=== PATIENT | male | born 1960 | race Caucasian/White ===

== ENCOUNTER 2025-09-13 07:59 | Inpatient (IN) | payer OTHER, SELFPAY ==
[2025-09-13] VITALS (22 sets, daily range): BP systolic 149–180; BP diastolic 48–80; PULSE 34–47; RESP 9–18; TEMP 36.4–36.5; O2SAT 92–100; BMI 28.7
--- NOTE | ~2025-09-13 | US_ITS ---
EXAMINATION: US renal BI DATE: 09/14/2025 08:27 INDICATION: Acute on chronic renal failure TECHNIQUE: Multiple ultrasound grayscale images of the kidneys were obtained. COMPARISON: None. FINDINGS: The right kidney measures 8.2 x 4.2 x 3.7 cm. The left kidney measures 8.6 x 4.9 x 4.6 cm. There is bilateral increased renal cortical echogenicity consistent with medical renal disease. There is no hydronephrosis in either kidney. No stones identified. Diffuse mild bladder wall thickening which chronic outlet obstruction from the enlarged prostate which measures at least 5.4 x 3.9 cm and which impresses upon the base of the bladder. Small amount of ascites in the left and right upper quadrants. IMPRESSION: 1. Bilateral diffuse increased renal cortical echogenicity consistent with medical renal disease. No hydronephrosis. 2. Small amount of ascites in the left and right upper quadrant. 3. Mild diffuse bladder wall thickening, likely related to chronic outlet obstruction from the enlarged prostate. Reviewed, dictated and finalized at location A. D CERTIFIED BEHAVIORAL ANALYST IMPRESSION: 1. Bilateral diffuse increased renal cortical echogenicity consistent with med ical renal disease. No hydronephrosis. 2. Small amount of ascites in the left and right upper quadrant. 3. Mild diffuse bladder wall thickening, likely related to chronic outlet obstr uction from the enlarged prostate.
--- NOTE | ~2025-09-13 | XR_ITS ---
EXAMINATION: XR chest 2V DATE: 09/13/2025 09:01 INDICATION: Bilateral extremity swelling TECHNIQUE: frontal and lateral views of the chest were obtained. COMPARISON: None FINDINGS: Small posterior left pleural effusion. Lungs are otherwise clear with no pulmonary edema, pneumothorax or right-sided pleural effusion. Borderline heart size, for AP technique. Moderate thoracic spondylosis with bridging osteophytes at multiple levels consistent with diffuse idiopathic skeletal hyperostosis (DISH). IMPRESSION: 1. Small left pleural effusion. 2. Borderline heart size. Reviewed, dictated and finalized at location A. CONTROL CONSULTANT
--- NOTE | 2025-09-13 08:09 | ECG_ITS ---
Test Date: 2025-09-13 08:17:15 Measurements Intervals [place] Rate: 41 P: 0 IN: 0 QRS: -8 QRSD: 96 T: 79 QT: 514 QTc: 427 Interpretive Statements ATRIAL FIBRILLATION WITH SLOW VENTRICULAR RESPONSE SEPTAL MYOCARDIAL INFARCTION [40+ ms Q WAVE IN V1/V2], PROBABLY OLD INTERPRETATION BASED ON A DEFAULT AGE OF 40 YEARS No previous ECG available for comparison Electronically Signed On 09-13-2025 08:38:34 [employer] by Darwin Villafana M.D.
--- NOTE | 2025-09-13 08:15 | ED_ITS ---
HPI - General Adult General Chief complaint: Extremity Problem,Nontraumatic Stated complaint: bilateral leg swelling Time Seen by Provider: 09/13/25 08:10 Source: patient Mode of arrival: ambulatory Limitations: no limitations History of Present Illness HPI narrative: 65 YEARS OLD WHITE MALE DROVE HIMSELF TO THE EMERGENCY ROOM BECAUSE OF SWELLING OF THE LOWER EXTREMITIES OVER THE LAST 48 HOURS. HE DENIES ANY FEVER, CHILLS, NAUSEA, VOMITING, HEADACHE, CHEST PAIN, SHORTNESS OF BREATH OR BACK PAIN. HISTORY OF DIABETES HYPERTENSION HYPERLIPIDEMIA ON BABY ASPIRIN ONCE A DAY. PATIENT REPORT HAVING SIMILAR SYMPTOMS OF SWELLING OF THE LOWER EXTREMITY 1 YEAR AGO AND WAS HOSPITALIZED AT [facility]. HIS TELLING ME THAT HE HAVE A KIDNEY DOCTOR OVER THERE. Related Data Home Medications ?Medication ?Instructions ?Recorded ?Confirmed ?Last Taken ?Type amlodipine 5 mg tablet 5 mg PO DAILY 09/13/2509/1309/12/25 History calcitriol 0.25 mcg capsule 0.25 mcg PO DAILY 09/13/25 09/13/25 09/12/25 History carvedilol 3.125 mg tablet 3.125 mg PO Q12H 09/13/25 1 11/13/24 09/12/25 History finasteride 5 mg tablet 5 mg PO DAILY 09/13/2509/13 Unknown History insulin degludec 100 unit/mL (3 10 unit subcut HS 08/2609/13/25 09/12/25 History mL) subcutaneous pen (Tresiba FlexTouch U-100 insulin) insulin lispro 100 unit/mL 1 sliding scale dose subcut 09/13/25 09/13/25 09/12/25 History subcutaneous pen (Admelog SoloStar USEASDIRECTD U-100 Insulin lispro) sevelamer carbonate 800 mg tablet mg 09/13/25 Unknown History sodium bicarbonate 650 mg tablet 1,300 mg PO BID 09/1309/13/25 09/12/25 History Held on 09/13/25. Instructions: Patient no longer taking tamsulosin 0.4 mg capsule 0.4 mg PO Q24H 09/13/2508/26 Unknown History tirzepatide 5 mg/0.5 mL 5 mg subcut .BI WEEKLY 09/1309/13/25 08/30/25 History subcutaneous pen injector (Bernardo) torsemide 20 mg tablet 100 mg PO DAILY 09/13/2509/12/25 History Allergies Allergy/AdvReac Type Severity Reaction Status Date / Time Penicillins Allergy Intermediate Unknown Verified 09/13/25 11:43 Review of Systems 2 Review of Systems: All systems reviewed & are unremarkable except as noted in HPI and below PMFSH Social History Social History Smoking status: Never smoker Alcohol intake: never Substance use: never Lack of Transportation: No Lack of Food: Never True Current Housing: I Have Housing Concerned About Future Housing: No Difficulty Paying Gas/Electric Bills: No Difficulty Paying for Meds: No Currently Unemployed: No Education: Master's Degree or Higher Difficulty w/ Childcare or Family Care: No Spiritual care concerns: No Exam 2 Narrative: GENERAL APPEARANCE: WELL-DEVELOPED, WELL-NOURISHED SKIN: NORMAL COLOR, 3 +EDEMA LOWER EXTREMITY BILATERALLY UP TO THE GROIN AND GENITAL AREA. HEAD: NORMOCEPHALIC, NONTRAUMATIC EYES: CLEAR CONJUNCTIVA ENT: OROPHARYNX NORMAL, EARS NORMAL, NOSE NORMAL NECK: SUPPLE, NONTENDER CHEST AND RESPIRATORY: AIRWAY PATENT, NO RESPIRATORY DISTRESS, NO ACCESSORY MUSCLE USE HEART: BRADYCARDIA ABDOMEN: SOFT, NONTENDER, NO ORGANOMEGALY, QUIET BOWEL SOUNDS VASCULAR: NORMAL PERIPHERAL PULSES, NORMAL CAPILLARY REFILL. MUSCULOSKELETAL: NORMAL RANGE OF MOTION, NONTENDER BACK NEUROLOGIC: ALERT AND ORIENTED ?3, MOLASSES FEED MIXER IS NORMAL TESTED, NO GROSS MOTOR DEFICIT Course Consultations Consultation #1: DR BAUTISTA ADMIT TO HOSPITALIST Date: 09/13/25 Consultation #2: WILLY, CARDIOLOGY, ADMIT TO HOSPITALIST Date: 09/13/25 Vital Signs Vital signs: Vital Signs Pulse Rate 46 L 09/13/25 08:03 Respiratory Rate 14 09/13/25 08:03 Blood Pressure 149/66 H 09/13/25 08:03 Pulse Oximetry 100 09/13/25 08:03 Oxygen Delivery Room Air 09/13/25 08:03 Temperature 36.5 C 09/13/25 16:00 Pulse Rate 36 L 09/13/25 18:00 Respiratory Rate 18 09/13/25 16:00 Blood Pressure 179/57 H 09/13/25 16:00 Pulse Oximetry 96 09/13/25 16:00 Oxygen Delivery Room Air 09/13/25 08:03 Medical Decision Making [facility] Narrative Medical decision making narrative: PATIENT CAME WITH LEG EDEMA FOR THE LAST FEW DAYS VITAL SIGN SHOWING HEART RATE OF 46 IRREGULAR OTHERWISE WITHIN NORMAL LIMIT PHYSICAL EXAMINATION SHOWING 3+ EDEMA LOWER EXTREMITY BILATERALLY, SLOW HEART RATE WITH IRREGULARITY DIFFERENTIAL DIAGNOSIS INCLUDE CONGESTIVE HEART FAILURE, LIVER FAILURE, KIDNEY FAILURE, DEPENDENT EDEMA, HYPOPROTEINEMIA, BLOOD WORKUP TODAY INCLUDES CBC, CMP, TROPONIN, PRO BMP SHOWED HEMOGLOBIN 7.7, TROPONIN 0.085, PROBNP MORE THAN 30,000, CREATININE 10.2 BUN 177, OTHERWISE WITHIN NORMAL LIMIT URINALYSIS SHOWED NO ACUTE ABNORMALITY CHEST X-RAY SHOWED SMALL LEFT PLEURAL EFFUSION EKG SHOWED AFIB WITH SLOW VENTRICULAR RESPONSE ADMIT TO HOSPITALIST CONSULT NEPHROLOGY AND CARDIOLOGY. Differential Diagnosis Differential Diagnosis: ABOVE Vital Signs Vital Signs: Vital Signs Pulse Rate 46 L 09/13/25 08:03 Respiratory Rate 14 09/13/25 08:03 Blood Pressure 149/66 H 09/13/25 08:03 Pulse Oximetry 100 09/13/25 08:03 Oxygen Delivery Room Air 09/13/25 08:03 Temperature 36.5 C 09/13/25 16:00 Pulse Rate 36 L 09/13/25 18:00 Respiratory Rate 18 09/13/25 16:00 Blood Pressure 179/57 H 09/13/25 16:00 Pulse Oximetry 96 09/13/25 16:00 Oxygen Delivery Room Air 09/13/25 08:03 Lab Data 09/13/25 08:13 09/13/25 08:13 Labs: Lab Results 09/13/25 Range/Units 08:13 WBC 5.8 (4.5-10.0) K/mm3 RBC 2.65 L (4.6-6.20) M/mm3 Hgb 7.7 L (14.0-18.0) g/dL Hct 25.6 L (42.0-52.0) % MCV 96.6 (80-100) fl MCH 29.1 (26-34) pg MCHC 30.1 L (32-36) g/dl RDW 14.6 H (11.5-14.5) % Plt Count 212 (150-375) k/mm3 MPV 11.6 H (7.4-10.4) fl Immature Gran % (Auto) 0.3 (0-0.5) % Neut % (Auto) 65.1 (45.5-73.1) % Lymph % (Auto) 19.7 (18.3-44.2) % [place] % (Auto) 9.7 H (2.6-8.5) % Eos % (Auto) 4.7 H (0-4.4) % Baso % (Auto) 0.5 (0.2-1.2) % Lymph # (Auto) 1.14 (0.9-3.2) K/mm3 [place] # (Auto) 0.6 (0.1-0.6) K/mm3 Eos # (Auto) 0.3 (0-0.3) K/mm3 Baso # (Auto) 0.0 (0.0-0.1) K/mm3 Abs Immat Gran (auto) 0.02 (0.00-0.031) K/mm3 Absolute Neuts (auto) 3.8 (1.3-6.7) K/mm3 Absolute Nucleated RBC 0.000 (0.0-0.012) K/mm3 Nucleated RBC % 0.0 (0.0-0.2) % PT 16.7 H (11.1-14.7) Seconds INR 1.3 APTT 29.5 (22.3-36.8) Seconds Sodium 143 (137-145) mmol/L Potassium 5.0 (3.4-5.0) mmol/L Chloride 108 H (98-107) mmol/L Carbon Dioxide 20 L (22-30) mmol/L Anion Gap 15 H (4-12) mmol/L BUN 117 H* (9-20) mg/dL Creatinine 10.25 H (0.7-1.3) mg/dL Estim Creat Clear Calc 7 ml/min Estimated GFR 5 L (59 - ) Glucose 187 H (65-110) mg/dL Calcium 8.7 (8.4-10.2) mg/dL Total Bilirubin 0.5 (0.2-1.3) mg/dL AST 31 (17-59) U/L ALT 54 H (6-50) U/L Alkaline Phosphatase 162 H (38-126) U/L Troponin I 0.093 H* (0.000-0.034) ng/mL NT-Pro-B Natriuret Pep > 68226 H (19.9-100) pg/mL Total Protein 6.2 L (6.3-8.2) g/dL Albumin 3.6 (3.5-5.1) g/dL Imaging Data Radiologist's impression: Impressions Chest X-Ray 09/13/25 09:02 IMPRESSION: 1. Small left pleural effusion. 2. Borderline heart size. Critical Care Time Critical Care Time Critical Care Time: Yes Total Critical Care Time: 30 Discharge Plan Discharge Clinical Impression: Elevated troponin, Atrial fibrillation with slow ventricular response, CHF (congestive heart failure), Anemia Kidney failure Qualifiers: Renal failure chronicity: acute on chronic Acute renal failure type: u nspecified Chronic kidney disease stage: stage 5 (GFR < 15), not on chronic dialysis Qualified Code(s): N17.9 - Acute kidney failure, unspecified Patient Disposition: Still a Patient Condition: Guarded Prognosis
[2025-09-13 08:20] LABS: Hematocrit 25.6 % (42.0-52.0); Hemoglobin 7.7 g/dL (14.0-18.0); Immature Granulocyte Percent A 0.3 % (0-0.5); Lymphocytes Absolute Auto 1.14 K/mm3 (0.9-3.2); Mean Corpuscular HGB Conc 30.1 g/dl (32-36); Mean Corpuscular Hemoglobin 29.1 pg (26-34); Mean Corpuscular Volume 96.6 fl (80-100); Nucleated Red Blood Cells Absolute Auto 0.000 K/mm3 (0.0-0.012); Nucleated Red Blood Cells Perc 0.0 % (0.0-0.2); Platelet Count Result 212 k/mm3 (150-375); Red Blood Count 2.65 M/mm3 (4.6-6.20); White Blood Count 5.8 K/mm3 (4.5-10.0)
[2025-09-13 08:32] LABS: Alanine Aminotransferase 54 U/L (6-50); Albumin Level 3.6 g/dL (3.5-5.1); Alkaline Phosphatase 162 U/L (38-126); Anion Gap 15 mmol/L (4-12); Aspartate Amino Transferase 31 U/L (17-59); Bilirubin,Total 0.5 mg/dL (0.2-1.3); Calcium 8.7 mg/dL (8.4-10.2); Carbon Dioxide 20 mmol/L (22-30); Chloride 108 mmol/L (98-107); Estimated CRCL calculation 7 ml/min; Estimated Glomerular Filt Rate 5; Glucose 187 mg/dL (65-110); Potassium 5.0 mmol/L (3.4-5.0); Sodium 143 mmol/L (137-145); Total Protein 6.2 g/dL (6.3-8.2)
[2025-09-13 08:33] LABS: INR 1.3; Prothrombin Time 16.7 Seconds (11.1-14.7)
[2025-09-13 08:34] LABS: Partial Thromboplastin Time 29.5 Seconds (22.3-36.8)
[2025-09-13 08:39] LABS: Blood Urea Nitrogen 117 mg/dL (9-20)
[2025-09-13 08:43] LABS: NT Pro B Type Natriuretic Pept > 30000 pg/mL (19.9-100); Troponin I 0.093 ng/mL (0.000-0.034)
--- NOTE | 2025-09-13 09:42 | PC.NURSE ---
Unable to cath patient for urine d/t swelling of genitalia. Dr. Conte made aware.
[2025-09-13] MEDS: FUROSEMIDE INJ 40 MG/4 ML VIAL 60 MG IV PUSH (09:51)
--- NOTE | 2025-09-13 10:51 | WPCEDHO ---
ED Hand Off Checklist All vitals saved: yes IV Site documented: yes All med administrations documented: yes Triage Note Triage Note Pt ambulates to the ED for 09/13/25 08:03 evaluation of bilateral leg swelling for a few days. Pt denies CHF history, states he has hx of kidney problems but is unsure what. Pt states he had a similar episode 1 year ago. After being weighed today, pt states he has gained 20lbs in a few days. Allergies Penicillins Allergy (Intermediate, Verified 09/13/25 08:00) Unknown Administered/Completed Medications Discontinued Medications Furosemide (Furosemide Inj 40 Mg/4 Ml Vial) 60 mg IV PUSH ONCE STA Stop: 09/13/25 09:44 Last Admin: 09/13/25 09:51 Dose: 60 mg Documented By: ROMY Notes 09/13/25 10:50 Nurse Note by Estrellita De Los Santos multiple staff members attempted to place catheter in pt without success Initialized on 09/13/25 10:50 - END OF NOTE 09/13/25 09:42 Nurse Note by Radha Kasper Unable to cath patient for urine d/t swelling of genitalia. Dr. Conte made aware. Initialized on 09/13/25 09:42 - END OF NOTE Interventions/Assessments Cardiac Monitoring Start: 09/13/25 09:10 Freq: Status: Active Protocol: Document 09/13/25 08:03 VENICE (Rec: 09/13/25 09:11 KNW [id number]) Swimming Pool Cleaner Assessment Swimming Pool Cleaner Yes Applied Pulse Rate (60-100) 47 L EKG Rythm Sinus Bradycardia IV / Saline Lock, Insert Start: 09/13/25 08:09 Freq: STAT Status: Active Protocol: Document 09/13/25 08:10 ROMY (Rec: 09/13/25 08:11 [id number]) IV Assessment Peripheral Access Left Forearm IV Catheter Access Initiated IV Insertion Date 09/13/25 IV Insertion Time 08:11 Catheter Gauge 18 IV Insertion 1 Attempts Ultrasound Used for No Placement IV Site Assessment WNL IV Care and WNL Maintenance Last Vital Signs Pulse Rate 34 L 09/13/25 10:47 Respiratory Rate 14 09/13/25 10:47 Pulse Oximetry 98 09/13/25 10:47 Blood Pressure 153/76 H 09/13/25 10:47 Blood Pressure Mean 98 09/13/25 10:47 Blood Pressure Position Sitting 09/13/25 08:03 Oxygen Delivery Room Air 09/13/25 08:03 Weight 88.6 kg 09/13/25 08:03 Last Result - Abnormals Only RBC 2.65 M/mm3 (4.6-6.20) L 09/13/25 08:13 Hgb 7.7 g/dL (14.0-18.0) L 09/13/25 08:13 Hct 25.6 % (42.0-52.0) L 09/13/25 08:13 MCHC 30.1 g/dl (32-36) L 09/13/25 08:13 RDW 14.6 % (11.5-14.5) H 09/13/25 08:13 MPV 11.6 fl (7.4-10.4) H 09/13/25 08:13 [place] % (Auto) 9.7 % (2.6-8.5) H 09/13/25 08:13 Eos % (Auto) 4.7 % (0-4.4) H 09/13/25 08:13 PT 16.7 Seconds (11.1-14.7) H 09/13/25 08:13 Chloride 108 mmol/L (98-107) H 09/13/25 08:13 Carbon Dioxide 20 mmol/L (22-30) L 09/13/25 08:13 Anion Gap 15 mmol/L (4-12) H 09/13/25 08:13 BUN 117 mg/dL (9-20) H* 09/13/25 08:13 Creatinine 10.25 mg/dL (0.7-1.3) H 09/13/25 08:13 Estimated GFR 5 (59-) L 09/13/25 08:13 Glucose 187 mg/dL (65-110) H 09/13/25 08:13 ALT 54 U/L (6-50) H 09/13/25 08:13 Alkaline Phosphatase 162 U/L (38-126) H 09/13/25 08:13 Troponin I 0.093 ng/mL (0.000-0.034) H* 09/13/25 08:13 NT-Pro-B Natriuret Pep > 76003 pg/mL (19.9-100) H 09/13/25 08:13 Total Protein 6.2 g/dL (6.3-8.2) L 09/13/25 08:13 Most Recent Suicide Severity Rating Suicide Severity Rating NO RISK INDICATED 09/13/25 08:03
--- NOTE | 2025-09-13 10:54 | PC.NURSE ---
EDP is aware the catheter was not placed due to difficulty, EDP says the pt urinated 2 hours prior and is not concerned with a catheter placement at this time
[2025-09-13 11:19] LABS: Add Urine Microscopic? YES; Appearance Urine Clear (Clear); Glucose Urine UA 1+ mg/dL (Negative); Leukocyte Esterase Ur Negative LEU/UL (Negative); Nitrate Urine Negative (Negative); Non Pathogenic Casts 0-2; Specific Grav Ur 1.012 (1.001-1.035)
--- NOTE | 2025-09-13 11:29 | ADMGEN ---
This patient, Colt Islas, was admitted to IMU Room 210-01. Patient/family oriented to hospital policies and general routines including ID bracelet, bed and alarms, visiting hours, pain management, procedures, bathroom and other care routines, personal items, smoking policy, room service/diet, and visiting hours. Information on how to activate the Rapid Response Team has been discussed. Patient/Family are encouraged to report perceived risks to care and to ask questions if they do not understand what they are told or what they should do.
[2025-09-13 12:03] LABS: Troponin I 0.087 ng/mL (0.000-0.034)
--- NOTE | 2025-09-13 13:50 | PM.IMHP ---
H&P: HPI History of Present Illness Date/Time: 09/13/25 13:50 Chief Complaint: Lower extremity edema Narrative: 65-year-old male with past medical history of DM 2, HTN, CKD, hyperlipidemia presents to the ED on 09/13/2025 with complaints of bilateral lower extremity edema onset 2 days ago. Patient denies shortness of breath, chest pain, fevers, chills but endorses a cough that started yesterday with clear sputum. He further endorses decreased urinary output over the past couple of days. Patient states he had an episode similar to this last year and was hospitalized at [facility]. He follows nephrology and Internal Medicine at [facility]. Patient denies any history of CHF. Noted to be bradycardic in the 30s with AFib but asymptomatic. Patient states he usually runs 5 miles a day but has had difficulty over the past couple days due to the edema. After being weighed in the ED, patient stated he gained 20 lb in ?a few days.? Initial vital signs 149/66, HR 46, respirations 14, afebrile and 100% on room air EKG shows atrial fibrillation with slow ventricular response with rate of 41, old septal myocardial infarction Chemistry significant for anion gap 15, BUN 117, creatinine 10.25, glucose elevated at 187 ALT 54, alk-phos 162, BNP >30,000. Initial troponin 0.087. UA negative for infection Chest x-ray reads small left pleural effusion, borderline cardiac size Review of Systems Review of Systems: All systems reviewed & are unremarkable except as noted in HPI and below [facility] Social History Social History Smoking status: Never smoker Alcohol intake: never Substance use: never Lack of Transportation: No Lack of Food: Never True Current Housing: I Have Housing Concerned About Future Housing: No Difficulty Paying Gas/Electric Bills: No Difficulty Paying for Meds: No Currently Unemployed: No Education: Master's Degree or Higher Difficulty w/ Childcare or Family Care: No Spiritual care concerns: No Meds Home Medications and Allergies Home Medications ?Medication ?Instructions ?Recorded ?Confirmed ?Type amlodipine 5 mg tablet 5 mg PO DAILY 09/13/25 09/13/25 History calcitriol 0.25 mcg capsule 0.25 mcg PO DAILY 09/13/25 09/13/25 History carvedilol 3.125 mg tablet 3.125 mg PO Q12H 09/13/25 09/13/25 History finasteride 5 mg tablet 5 mg PO DAILY 09/13/25 09/13/25 History insulin degludec 100 unit/mL (3 10 unit subcut HS 09/13/25 09/13/25 History mL) subcutaneous pen (Tresiba FlexTouch U-100 insulin) insulin lispro 100 unit/mL 1 sliding scale dose subcut 09/13/25 09/13/25 History subcutaneous pen (Admelog SoloStar USEASDIRECTD U-100 Insulin lispro) sevelamer carbonate 800 mg tablet mg 09/13/25 History sodium bicarbonate 650 mg tablet 1,300 mg PO BID 09/13/25 09/13/25 History Held on 09/13/25. Instructions: Patient no longer taking tamsulosin 0.4 mg capsule 0.4 mg PO Q24H 09/13/25 09/13/25 History tirzepatide 5 mg/0.5 mL 5 mg subcut .BI WEEKLY 09/13/25 09/13/25 History subcutaneous pen injector (Mounjaro) torsemide 20 mg tablet 100 mg PO DAILY 09/13/25 09/13/25 History Allergies Allergy/AdvReac Type Severity Reaction Status Date / Time Penicillins Allergy Intermediate Unknown Verified 09/13/25 11:43 Vital Signs Vital Signs - 24 hr 09/13/25 08:03 09/13/25 08:03 09/13/25 08:16 Temperature Pulse Rate 46 L 47 L 40 L Respiratory Rate 14 12 Blood Pressure 149/66 H 179/66 H Pulse Oximetry 100 92 Oxygen Delivery Room Air 09/13/25 08:31 09/13/25 08:46 09/13/25 09:13 Temperature Pulse Rate 39 L 39 L 39 L Respiratory Rate 14 14 16 Blood Pressure 160/64 H 157/67 H 160/67 H Pulse Oximetry 96 100 98 Oxygen Delivery 09/13/25 09:16 09/13/25 09:31 09/13/25 09:46 Temperature Pulse Rate 39 L 38 L 39 L Respiratory Rate 9 L 15 18 Blood Pressure 171/64 H 160/75 H 180/72 H Pulse Oximetry 97 100 100 Oxygen Delivery 09/13/25 10:01 09/13/25 10:16 09/13/25 10:31 Temperature Pulse Rate 37 L 37 L 36 L Respiratory Rate 16 14 12 Blood Pressure 163/75 H 152/80 H 157/71 H Pulse Oximetry 100 100 97 Oxygen Delivery 09/13/25 10:47 09/13/25 11:08 09/13/25 11:57 Temperature 97.6 F 97.6 F Pulse Rate 34 L 37 L 39 L Respiratory Rate 14 16 16 Blood Pressure 153/76 H 163/67 H 173/69 H Pulse Oximetry 98 98 99 Oxygen Delivery Exam Narrative: GENERAL: non-toxic appearing, in no acute distress. HEAD: Normocephalic, atraumatic. EYES: PERRLA. Conjunctivae clear. NOSE: Normal no drainage. THROAT: Pharynx clear, no exudate. NECK: Trachea midline. No adenopathy, no masses. RESPIRATORY: Airway patent, respirations nonlabored. Bilateral rales CARDIOVASCULAR: Bradycardic with irregular rhythm. Murmur heard GASTROINTESTINAL: Abdomen is soft and nontender. No organomegaly. Bowel sounds normal in all quadrants. MUSCULOSKELETAL: Moves all extremities. Bilateral lower extremity 2+ edema. No erythema or ulcerations SKIN: Warm, dry, normal color. NEURO: A&O X4. Speech clear PSYCHIATRIC: Normal interaction H&P: Results Labs Labs: Short CBC 09/13/25 Range/Units 08:13 WBC 5.8 (4.5-10.0) K/mm3 Hgb 7.7 L (14.0-18.0) g/dL Hct 25.6 L (42.0-52.0) % Plt Count 212 (150-375) k/mm3 BMP 09/13/25 08:13 Sodium 143 Potassium 5.0 Chloride 108 H Carbon Dioxide 20 L BUN 117 H* Creatinine 10.25 H Glucose 187 H Calcium 8.7 Cardiac Enzymes 09/13/25 09/13/25 Range/Units 08:13 11:28 Troponin I 0.093 H* 0.087 H* (0.000-0.034) ng/mL Liver Function 09/13/25 Range/Units 08:13 Total Bilirubin 0.5 (0.2-1.3) mg/dL AST 31 (17-59) U/L ALT 54 H (6-50) U/L Alkaline Phosphatase 162 H (38-126) U/L Albumin 3.6 (3.5-5.1) g/dL Urine 09/13/ Range/Units 11:06 Urine Color Yellow (Yellow) Urine Appearance Clear (Clear) Urine pH 7.5 (5.0-9.0) Ur Specific [place] 1.012 (1.001-1.035) Urine Protein 2+ H (Negative) mg/dL Urine Glucose (UA) 1+ H (Negative) mg/dL Assessment and Plan Assessment and plan (1) Kidney failure: Qualifiers: Acute renal failure type: unspecified Chronic kidney disease stage: stage 5 (GFR < 15), not on chronic dialysis Renal failure chronicity: acute on chronic Qualified Code(s): N17.9 - Acute kidney failure, unspecified; N18.5 - Chronic kidney disease, stage 5 Code(s): N19 - Unspecified kidney failure Status: Acute Assessment and Plan: Acute on chronic. Patient presents with lower extremity edema onset 2 days ago. - Cr 10.25 on admission (baseline Cr: 7-8) - renal ultrasound - add urine sodium, protein/creatinine, urea - UA: 2+ protein, 1+ glucose. No concern for infection -monitor postvoid residuals - monitor I&Os -monitor renal function and electrolytes -Renal dose med, avoid nephrotoxins - nephrology consultation, awaiting recs -obtain Nephrology records from [facility] (2) Urinary retention: Code(s): R33.9 - Retention of urine, unspecified Status: Acute Assessment and Plan: Urine retention noted in ED. patient is on tamsulosin and finasteride but has not been taking recently as he has had an unable to obtain it. Several unsuccessful attempts to catheterize patient in ED. Patient was eventually able to void. -bladder scan postvoid residual -restart home tamsulosin and finasteride -Urology consult (3) Elevated troponin: Code(s): R79.89 - Other specified abnormal findings of blood chemistry Status: Acute Assessment and Plan: 0.093-->0.087-->0.085. Patient denies shortness of breath, chest pain, arm pain, jaw pain. Likely secondary to renal failure. -cardiology consult (4) Lower extremity edema: Code(s): R60.0 - Localized edema Status: Acute Assessment and Plan: Patient presents with 2 days of lower extremity edema. Denies shortness of breath but endorses cough with clear sputum. Echo from last year shows preserved biventricular size and systolic function, mild . Edema likely related to renal failure. 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 Telemetry suggestive of occasional 2nd degree type 1 block -holding carvedilol avoid AVN blocking drugs -monitor on tele (6) Bradycardia: Code(s): R00.1 - Bradycardia, unspecified Status: Acute Assessment and Plan: Patient asymptomatic. -Hold beta-gerber (7) Diabetes: Qualifiers: Chronic kidney disease stage: stage 5 (GFR < 15), not on chronic dialysis Diabetes mellitus complication detail: with chronic kidney disease Diabetes mellitus complication status: with kidney complications Diabetes mellitus machine long goods helper insulin use: with machine long goods helper use Diabetes mellitus type: type 2 Qualified Code(s): E11.22 - Type 2 diabetes mellitus with diabetic chronic kidney disease; N18.5 - Chronic kidney disease, stage 5; Z79.4 - senior care (current) use of insulin Code(s): E11.9 - Type 2 diabetes mellitus without complications Status: Chronic Assessment and Plan: - hypoglycemia protocol - POC blood glucose ACHS - home medication: Tresiba, mounjaro, lispro - correct regimen ordered: Low-dose correctional scale - A1C ordered Plan Diet: Renal GI prophylaxis: NA DVT prophylaxis: Heparin subcutaneous lines/drains: PIV Fluids: NA Code status: Full Quality VTE Prophylaxis VTE prophylaxis: pharmacologic ordered Hospitalist [facility] Advance Care Plan I have confirmed that the patient's Advanced Care Plan is present, code status is documented, or surrogate decision maker is listed in patient medical record.: Yes Medication Reconciliation I have utilized all available resources to obtain, update and review the patients current medications (includes all prescriptions, OTC, herbals, cannabis, and nutritional supplements).: Yes
--- NOTE | 2025-09-13 14:13 | P.CONCA_ITS ---
Assessment and Plan Assessment and plan (1) Elevated troponin: Code(s): R79.89 - Other specified abnormal findings of blood chemistry Status: Acute (2) Atrial fibrillation with slow ventricular response: Code(s): I48.91 - Unspecified atrial fibrillation Status: Acute (3) Kidney failure: Code(s): N19 - Unspecified kidney failure Status: Acute Plan 65-year-old man with CKD stage 5 ( creatinine ranges from 7-8 typically), insulin-dependent diabetes, and hypertension presented with lower extremity swelling Lower extremity swelling - likely secondary to worsening renal function - his echocardiogram last year shows preserved biventricular size and systolic function with mild aortic stenosis - Reasonable to repeat a transthoracic echocardiogram - IV diuretics per Nephrology - monitor urine output' - daily weights Paroxysmal atrial fibrillation with a slow ventricular rates - telemetry suggests occasional second-degree type 1 block - stop carvedilol and avoid AVN blocking agents - continue to monitor on telemetry for now Chronic kidney disease stage 5 - nephrology consult History of Present Illness History of Present Illness Consult date/time: 09/13/25 14:13 Requesting physician: Mirela Gardner APRN Consult reason: atrial fibrillation Reason For Visit: CHF/KIDNEY FAILURE/ELEVATED TROP/AFIB W SLOW VENTR Narrative: 65-year-old man with CKD stage 5 ( creatinine ranges from 7-8 typically), insulin-dependent diabetes, and hypertension presented with lower extremity swelling. His renal function has been worsening over the years and there has been discussion about initiating hemodialysis however as per records, it appears that he is too busy for hemodialysis at this time. Denies any chest discomfort or shortness of breath. He is laying supine without any orthopnea. He does have lower extremity swelling. He has been taking torsemide 100 mg p.o. daily. He noted in the last few days, his urine output has been decreasing. Denies syncopal events. Ambulates about 5 miles a day. Has not noticed any decreased functional status. Review of Systems 2 Cardiovascular: Cardiovascular: Reports as per HPI Respiratory: Respiratory: Reports as per HPI [facility] Social History Social History Smoking status: Never smoker Alcohol intake: never Substance use: never Lack of Transportation: No Lack of Food: Never True Current Housing: I Have Housing Concerned About Future Housing: No Difficulty Paying Gas/Electric Bills: No Difficulty Paying for Meds: No Currently Unemployed: No Education: Master's Degree or Higher Difficulty w/ Childcare or Family Care: No Spiritual care concerns: No Meds Home Medications and Allergies Home Medications ?Medication ?Instructions ?Recorded ?Confirmed ?Type amlodipine 5 mg tablet 5 mg PO DAILY 09/13/2509/13 History calcitriol 0.25 mcg capsule 0.25 mcg PO DAILY 09/13/25 09/13/25 History carvedilol 3.125 mg tablet 3.125 mg PO Q12H 09/13/25 1 11/13/24 History finasteride 5 mg tablet 5 mg PO DAILY 09/13/2509/13 History insulin degludec 100 unit/mL (3 10 unit subcut HS 08/2609/13/25 History mL) subcutaneous pen (Tresiba FlexTouch U-100 insulin) insulin lispro 100 unit/mL 1 sliding scale dose subcut 09/13/25 09/13/25 History subcutaneous pen (Admelog SoloStar USEASDIRECTD U-100 Insulin lispro) sevelamer carbonate 800 mg tablet mg 09/13/25 History sodium bicarbonate 650 mg tablet 1,300 mg PO BID 09/1309/13/25 History Held on 09/13/25. Instructions: Patient no longer taking tamsulosin 0.4 mg capsule 0.4 mg PO Q24H 09/13/2508/26 History tirzepatide 5 mg/0.5 mL 5 mg subcut .BI WEEKLY 09/1309/13/25 History subcutaneous pen injector (Joséunhectorro) torsemide 20 mg tablet 100 mg PO DAILY 09/13/25 History Allergies Allergy/AdvReac Type Severity Reaction Status Date / Time Penicillins Allergy Intermediate Unknown Verified 09/13/25 11:43 Vital Signs Vital Signs - 24 hr 09/13/25 08:03 09/13/25 08:03 09/13/25 08:16 Temperature Pulse Rate 46 L 47 L 40 L Respiratory Rate 14 12 Blood Pressure 149/66 H 179/66 H Pulse Oximetry 100 92 Oxygen Delivery Room Air 09/13/25 08:31 09/13/25 08:46 09/13/25 09:13 Temperature Pulse Rate 39 L 39 L 39 L Respiratory Rate 14 14 16 Blood Pressure 160/64 H 157/67 H 160/67 H Pulse Oximetry 96 100 98 Oxygen Delivery 09/13/25 09:16 09/13/25 09:31 09/13/25 09:46 Temperature Pulse Rate 39 L 38 L 39 L Respiratory Rate 9 L 15 18 Blood Pressure 171/64 H 160/75 H 180/72 H Pulse Oximetry 97 100 100 Oxygen Delivery 09/13/25 10:01 09/13/25 10:16 09/13/25 10:31 Temperature Pulse Rate 37 L 37 L 36 L Respiratory Rate 16 14 12 Blood Pressure 163/75 H 152/80 H 157/71 H Pulse Oximetry 100 100 97 Oxygen Delivery 09/13/25 10:47 09/13/25 11:08 09/13/25 11:57 Temperature 36.4 C 36.4 C Pulse Rate 34 L 37 L 39 L Respiratory Rate 14 16 16 Blood Pressure 153/76 H 163/67 H 173/69 H Pulse Oximetry 98 98 99 Oxygen Delivery Exam 2 Const: General: comfortable HENMT: Mouth: Yes moist mucous membranes Eyes: EOM: EOMs intact bilaterally Neck: Neck: no JVD Resp: Auscultation: rales Cardio: Rate: bradycardic Rhythm: abnormal rhythm Heart sounds: Murmur heart sound present Neuro: Speech: normal speech Extrem: General: edema and pedal edema Results Labs and Meds 09/13/25 08:13 09/13/25 08:13 Lab results: Cardiac Enzymes 09/13/25 09/13/25 Range/Units 08:13 11:28 AST 31 (17-59) U/L Troponin I 0.093 H* 0.087 H* (0.000-0.034) ng/mL Coagulation 09/13/25 Range/Units 08:13 PT 16.7 H (11.1-14.7) Seconds APTT 29.5 (22.3-36.8) Seconds CBC 09/13/25 Range/Units 08:13 WBC 5.8 (4.5-10.0) K/mm3 RBC 2.65 L (4.6-6.20) M/mm3 Hgb 7.7 L (14.0-18.0) g/dL Hct 25.6 L (42.0-52.0) % Plt Count 212 (150-375) k/mm3 Lymph # (Auto) 1.14 (0.9-3.2) K/mm3 Taylor # (Auto) 0.6 (0.1-0.6) K/mm3 Eos # (Auto) 0.3 (0-0.3) K/mm3 Baso # (Auto) 0.0 (0.0-0.1) K/mm3 Comprehensive Metabolic Panel 09/13/25 Range/Units 08:13 Sodium 143 (137-145) mmol/L Potassium 5.0 (3.4-5.0) mmol/L Chloride 108 H (98-107) mmol/L Carbon Dioxide 20 L (22-30) mmol/L BUN 117 H* (9-20) mg/dL Creatinine 10.25 H (0.7-1.3) mg/dL Glucose 187 H (65-110) mg/dL Calcium 8.7 (8.4-10.2) mg/dL AST 31 (17-59) U/L ALT 54 H (6-50) U/L Alkaline Phosphatase 162 H (38-126) U/L Total Protein 6.2 L (6.3-8.2) g/dL Albumin 3.6 (3.5-5.1) g/dL Patient Weight 09/13/25 23:59 Weight 88.3 kg
[2025-09-13 14:50] LABS: Troponin I 0.085 ng/mL (0.000-0.034)
--- NOTE | 2025-09-13 14:57 | PM.CNNEP ---
Assessment and Plan Assessment and plan (1) Stage 5 chronic kidney disease: Code(s): N18.5 - Chronic kidney disease, stage 5 Status: Chronic Assessment and Plan: known advanced disease at baseline baseline creatinine running ~ 8.5 - 9.5mg/dL for the last year BUNs have been running ~ 120 - 140mg/dL in that same time frame thought to be secondary to diabetic nephropathy associated with proteinuria, hyperkalemia, anemia, and hyperphosphotemia on Veltassa and renvela for control of K+ and Phos Aranesp ordered for anemia (but unclear if getting/taking) follows with Dr. Elia Torres for ongoing CKD management has been quite resistant to dialysis initiation due to his travel schedule/work (works in [place]) (2) Azotemia: Code(s): R79.89 - Other specified abnormal findings of blood chemistry Status: Chronic Assessment and Plan: baseline blood urea nitrogen readings running ~ 120 - 140mg/dL in the last year presumably due to progressive decline in kidney function however, necessity of diuretic therapy likely playing a role furthermore, cannot discount possible GI blood loss given his anemia (3) Lower extremity edema: Code(s): R60.0 - Localized edema Status: Acute Assessment and Plan: likely a manifestation of advanced CKD in association with proteinuria initiated on IV diuretics given his advaned CKD, unclear how effective diuretics will be more concerning, this intervention could push/worsen his underlying CKD (4) Anemia: Code(s): D64.9 - Anemia, unspecified Status: Chronic Assessment and Plan: due to advanced CKD follow trend of H/H start LOUIE while hospitalized (5) Hypertension: Code(s): I10 - Essential (primary) hypertension Status: Chronic Assessment and Plan: resume home medications diuresis may help to some degree suspt may need further medication adjustment follow trend of hemodyanmics (6) Diabetes: Qualifiers: Chronic kidney disease stage: stage 5 (GFR < 15), not on chronic dialysis Diabetes mellitus complication detail: with chronic kidney disease Diabetes mellitus complication status: with kidney complications Diabetes mellitus senior living insulin use: with senior living use Diabetes mellitus type: type 2 Qualified Code(s): E11.22 - Type 2 diabetes mellitus with diabetic chronic kidney disease; N18.5 - Chronic kidney disease, stage 5; Z79.4 - prison (current) use of insulin Code(s): E11.9 - Type 2 diabetes mellitus without complications Status: Acute Assessment and Plan: follow accu-cheks glycemic control per hospitalist Long and extensive discussion (> 20 minutes) with the patient regarding his advanced chronic kidney disease. I also discussed the case with his primary emergency doctor, Dr. Elia Torres. The patient has had a GFR less than 10 for the last year if not longer complicated by proteinuria, hyperkalemia, hyperphosphatemia, and anemia. The patient has been extremely resistant to the idea/concept of renal replacement therapy/dialysis in general. Unfortunately, given his advanced kidney disease, I do not think medical therapy alone will ever truly optimize his electrolytes, anemia, and now his significant weight gain/fluid retention which is most likely due to his worsening kidney function. At this point, both Dr. Jared June and I agree that the next step is renal replacement therapy/dialysis. I discussed this in detail with the patient and it would appear that he voiced understanding but he is still not willing to commit to doing this intervention at this time. Will continue conservative therapy with IV diuretics and binders with regard to potassium and phosphorus and [place] erythropoietin for his anemia but I very much doubt these interventions alone will improve his overall clinical condition. I will continue to follow the patient with you while he remains hospitalized and make further recommendations as deemed necessary. Thank you for allowing me to participate in the care of this patient. History of Present Illness Reason for Consult Consult date: 09/13/25 Reason for consult: chronic renal failure Chief Complaint Chief complaint: CHF/KIDNEY FAILURE/ELEVATED TROP/AFIB W SLOW VENTR History of Present Illness Narrative: The patient is a 65-year-old a past medical history as outlined who presented to [facility] Emergency Room with complaints bilateral lower extremity swelling/edema. Patient states that lower extremity swelling/ edema seem to start few days ago if longer and has progressively worsened in that time frame. He denies any other associated symptoms with regard to shortness of breath, chest pain, fevers, chills, nausea, vomiting, dizziness lightheadedness, or palpitations. He also states that he thinks his urine output has declined / diminished in the last few days as well. He gives no reported history of congestive heart failure. Given the progressive worsening of his lower extremity edema, he is having difficulties performing his normal activities of daily living including simple ambulation. Given these constellation of symptoms, he presented to the emergency room for further assessment Workup and evaluation emergency room demonstrated the patient to be hemodynamically stable and afebrile. He was noted be slightly bradycardic but was otherwise asymptomatic. Routine blood tests were significant for significant renal dysfunction with a BUN of 117, creatinine of 10.2 glucose 187 in association with anemia with a hemoglobin 7.7 His chest x-ray showed a small left pleural effusion and borderline cardiac. Given his significant lower extremity swelling / edema in conjunction with his advanced renal insufficiency he was admitted the hospital evaluation therapy. Since his admission, he has been seen by Cardiology given his bradycardia and atrial fibrillation. An echocardiogram has been ordered and all AV kevin blocking agents have since discontinued. His felt that his lower extremity swelling / edema is more related to his advanced kidney disease than acute CHF. Renal consultation was requested due to his advanced chronic kidney disease. The patient has been following with Dr. Elia Torres for management of his chronic kidney disease and apparently his renal function has been slowly and progressively deteriorating for last few years if not longer. In spite of his advanced kidney disease, he has never had any issues with critical electrolyte abnormalities although he does require the use of Veltassa and phosphate binders to keep his potassium and phosphorus in check. Furthermore, he is supposed to be taking outpatient erythropoietic stimulating agents in effort to maintain stability his hemoglobin/ hematocrit as well. Hence pulse of multiple conversations by his primary emergency doctor with regard for the need for renal replacement therapy / dialysis, the patient has been quite resistant to this intervention. He is on outpatient diuretic therapy which usually keeps his swelling/ edema and check but as already mentioned by presentation to the ER, this would seem to be of limited effectiveness at this point time. Currently, the time my evaluation, he appears to be in no acute distress. Review of Systems Review of Systems: As per HPI. [facility] Past Medical History Medical History (Updated 09/15/25 @ 06:34 by Vanessa Cash MD) Diabetes Anemia Chronic kidney disease Hypertension Social History Social History Smoking status: Never smoker Alcohol intake: never Substance use: never Lack of Transportation: No Lack of Food: Never True Current Housing: I Have Housing Concerned About Future Housing: No Difficulty Paying Gas/Electric Bills: No Difficulty Paying for Meds: No Currently Unemployed: No Education: Master's Degree or Higher Difficulty w/ Childcare or Family Care: No Spiritual care concerns: No Meds Home Medications and Allergies Home Medications ?Medication ?Instructions ?Recorded ?Confirmed ?Type amlodipine 5 mg tablet 5 mg PO DAILY 09/13/25 09/13/25 History calcitriol 0.25 mcg capsule 0.25 mcg PO DAILY 09/13/25 09/13/25 History carvedilol 3.125 mg tablet 3.125 mg PO Q12H 09/13/25 09/13/25 History finasteride 5 mg tablet 5 mg PO DAILY 09/13/25 09/13/25 History insulin degludec 100 unit/mL (3 10 unit subcut HS 09/13/25 09/13/25 History mL) subcutaneous pen (Tresiba FlexTouch U-100 insulin) insulin lispro 100 unit/mL 1 sliding scale dose subcut 09/13/25 09/13/25 History subcutaneous pen (Admelog SoloStar USEASDIRECTD U-100 Insulin lispro) sevelamer carbonate 800 mg tablet 800 mg PO TIDWM 09/13/25 09/14/25 History sodium bicarbonate 650 mg tablet 1,300 mg PO BID 09/13/25 09/13/25 History Held on 09/13/25. Instructions: Patient no longer taking tamsulosin 0.4 mg capsule 0.4 mg PO Q24H 09/13/25 09/13/25 History tirzepatide 5 mg/0.5 mL 5 mg subcut .BI WEEKLY 09/13/25 09/13/25 History subcutaneous pen injector (Bernardo) torsemide 20 mg tablet 100 mg PO DAILY 09/13/25 09/13/25 History Allergies Allergy/AdvReac Type Severity Reaction Status Date / Time Penicillins Allergy Intermediate Unknown Verified 09/13/25 11:43 Vital Signs Vital Signs Temp Pulse Resp BP Pulse Ox O2 Del Method 09/13/25 14:00 97.7 F 38 L 18 179/57 H 96 09/13/25 12:00 37 L 09/13/25 11:57 97.6 F 39 L 16 173/69 H 99 09/13/25 11:08 97.6 F 37 L 16 163/67 H 98 09/13/25 10:47 34 L 14 153/76 H 98 09/13/25 10:31 36 L 12 157/71 H 97 09/13/25 10:16 37 L 14 152/80 H 100 09/13/25 10:01 37 L 16 163/75 H 100 09/13/25 09:46 39 L 18 180/72 H 100 09/13/25 09:31 38 L 15 160/75 H 100 09/13/25 09:16 39 L 9 L 171/64 H 97 09/13/25 09:13 39 L 16 160/67 H 98 09/13/25 08:46 39 L 14 157/67 H 100 09/13/25 08:31 39 L 14 160/64 H 96 09/13/25 08:16 40 L 12 179/66 H 92 09/13/25 08:03 47 L 09/13/25 08:03 46 L 14 149/66 H 100 Room Air Exam Narrative: GENERAL APPEARANCE: well developed well nourished male/female in no acute distress HEENT: normocephalic, atraumatic, normal conjunctiva and sclera, nares patient NECK: no lymphadenopathy, thyromegaly, or JVD MOUTH: normal lips, teeth, and gums CARDIOVASCULAR: bradycardic, normal S1 and S2, no rub RESPIRATORY: few bibasilar crackles ABDOMEN: soft, nontender, nondistended, positive bowel sounds present EXTREMITIES: no evidence of cyanosis, clubbing; 2+ edema NEUROLOGICAL: alert and oriented x 3; CN II - XII intact bilaterally; no focal deficits noted Results Lab Results 09/15/25 03:48 09/15/25 03:48 Lab results: Most recent lab results Calcium 8.7 mg/dL (8.4-10.2) 09/13/25 08:13
[2025-09-13] MEDS: TAMSULOSIN HCL 0.4 MG CAPSULE PO (15:17)
[2025-09-13 19:33] LABS: Anion Gap 11 mmol/L (4-12); Blood Urea Nitrogen 118 mg/dL (9-20); Calcium 8.6 mg/dL (8.4-10.2); Carbon Dioxide 22 mmol/L (22-30); Chloride 108 mmol/L (98-107); Estimated CRCL calculation 7 ml/min; Estimated Glomerular Filt Rate 5; Glucose 204 mg/dL (65-110); Magnesium 2.3 mg/dL (1.6-2.3); Potassium 5.1 mmol/L (3.4-5.0); Sodium 141 mmol/L (137-145)
[2025-09-13 20:13] LABS: Hemoglobin A1C 6.6 % (<5.7)
[2025-09-13] MEDS: FUROSEMIDE INJ 40 MG/4 ML VIAL IV PUSH (20:48)
[2025-09-14] VITALS (19 sets, daily range): BP systolic 138–174; BP diastolic 44–72; PULSE 35–90; RESP 15–18; TEMP 36.4–36.6; O2SAT 93–100
--- NOTE | 2025-09-14 | ECHO_ITS ---
Patient Info Name: Colt Islas Age: 65 years : 1960 Gender: Male Ht: 69 in Wt: 194 lbs BSA: 2.09 m2 HR: 38 bpm BP: 153 / 72 mmHg Heart Rhythm: Atrial Fibrillation Technical Quality: Good Exam Date: 09/14/2025 9:18 AM Patient Status: I Admit Date: 09/13/2025 Exam Type: CA echo doppler color flow Complete two-dimensional, color flow and Doppler transthoracic echocardiogram is performed. Staff Referring Physician: Mirela Gardner Breaker Up: Brian Gallagher III Attending Provider: Mele Alexander Summary 1. Complete two-dimensional, color flow and Doppler transthoracic echocardiogram is performed. 2. Mild global left ventricular systolic dysfunction ejection fraction visually estimated 40-45%. 3. Moderate to severe aortic valve stenosis. 4. Moderate to severe biatrial dilation. 5. Mild MR. 6. Atrial fibrillation. Left Ventricle Left ventricular chamber dimension is mildly enlarged. Left ventricular systolic function is mildly reduced, estimated at 40-45. The left ventricular diastolic function is indeterminate. Right Ventricle Right ventricular chamber dimension is normal. Left Atria Left atrial chamber dimension is moderately enlarged. Right Atria Right atrial chamber dimension is moderately enlarged. Aortic Valve The aortic valve is trileaflet. There is moderate aortic valve sclerosis. There is moderate to severe aortic valve stenosis with a peak velocity of 435 cm/s, mean gradient of 33 mmHg, and aortic valve area of 1.0 cm2. Pulmonic Valve The pulmonic valve is not well visualized. Mitral Valve The mitral valve has normal leaflets. There is mild mitral valve regurgitation. The mitral valve annulus is moderately calcified. Tricuspid Valve The tricuspid valve leaflets are normal. There is moderate tricuspid valve regurgitation. Pericardium/Pleural The pericardium appears normal. Aorta The aortic root size at the sinus of Valsalva is normal. Left Ventricular Outflow Tract Name Value Normal LVOT 2D LVOT Diameter 2.2 cm LVOT Doppler LVOT Peak Velocity 94 cm/s LVOT Peak Gradient 3 mmHg LVOT Mean Gradient 2 mmHg LVOT VTI 25 cm LVOT VTI/AV VTI Ratio 0.3 LVOT Stroke Volume 100 ml LVOT CO 4.2 l/min LVOT CI 2.0 l/min/m2 Pulmonic Valve Name Value Normal PV Doppler PV Peak Velocity 133 cm/s PV Peak Gradient 7 mmHg PV Mean Gradient 3 mmHg Mitral Valve Name Value Normal MV Doppler MV Peak Gradient 14 mmHg MV Mean Gradient 4 mmHg MV Area (Cont Eq VTI) 1.8 cm2 MV Regurgitation Doppler MR Peak Gradient 145 mmHg MV Diastolic Function MV E Peak Velocity 188 cm/s MV A Peak Velocity 81 cm/s MV E/A 2.3 MV Decel Time (PW) 156 ms MV Annular TDI MV E/e' (Septal) 57.2 MV E/e' (Lateral) 23.6 MV E/e' (Average) 40.4 Tricuspid Valve Name Value Normal TV Regurgitation Doppler TR Peak Velocity 385 cm/s TR Peak Gradient 59 mmHg Estimated PAP/RSVP RA Pressure 10 mmHg <=5 PA Systolic Pressure 69 mmHg <36 RV Systolic Pressure 69 mmHg <36 TV Annular TDI TV Lateral Sneha s' Velocity 12.3 cm/s >=9.5 Aortic Valve Name Value Normal AV Doppler AV Peak Velocity 435 cm/s AV Peak Gradient 76 mmHg AV Mean Gradient 33 mmHg AV VTI 99 cm AV Area (Cont Eq VTI) 1.0 cm2 >=3.0 AV Area (Cont Eq Portillo) 0.9 cm2 AV DI (Poritllo) 0.21 AV Regurgitation 2D LVOT Area 4.0 cm2 Ventricles Name Value Normal LV Dimensions 2D/MM IVS Diastolic Thickness (2D) 1.2 cm 0.6-1.0 LVID Diastole (2D) 5.0 cm 4.2-5.8 LVIW Diastolic Thickness (2D) 1.4 cm 0.6-1.0 LVID Systole (2D) 3.6 cm 2.5-4.0 LVOT Diameter 2.2 cm LV Mass (2D Cubed) 267.63 g 88.00-224.00 LV Mass Index (2D Cubed) 128 g/m2 49-115 Relative Wall Thickness (2D) 0.58 <=0.42 LV Fractional Shortening/Ejection Fraction 2D/MM LV Fractional Shortening (2D) 27 % 25-43 LV EF (2D Teichholz) 52 % LV Diastolic Volume (4C MOD) 157 ml LV EF (4C MOD) 52 % LV Diastolic Volume (2C MOD) 139 ml LV EF (2C MOD) 59 % LV Diastolic Volume (BP MOD) 155 ml 62-150 LV Diastolic Volume Index (BP MOD) 74 ml/m2 34-74 LV Systolic Volume (BP MOD) 69 ml 21-61 LV Systolic Volume Index (BP MOD) 33 ml/m2 11-31 LV EF (BP MOD) 55 % 52-72 LV Diastolic Length (4C) 9.2 cm LV Systolic Length (4C) 7.8 cm LV Stroke Volume (4C MOD) 82 ml Atria Name Value Normal LA Dimensions LA Volume (4C A-L) 128 ml LA Volume (BP A-L) 126 ml RA Dimensions RA Systolic Major Conklin Length (4C) 6.3 cm 2.1-2.7 RA Area (4C) 26.1 cm2 <=18.0 Report Signatures
[2025-09-14 00:02] LABS: Urea Random Urine 309 MG/DL
--- NOTE | 2025-09-14 00:23 | PC.NURSE ---
Patient bladder scanned pre-void and bladder scan read 750 mL. Post void residual read 350 mL. BOTTOM STAINER Magdiel notified and RN received orders to place coude catheter due to patients elevated BUN & Creatinine. This RN attempted to place 14 Fr coude catheter and was unsuccesful with placement due to anatomy and unable to retract foreskin. JONAH Veloz updated and urology will be consulted to see patient and possibly place coude catheter if retention persists. BUN 118 and creatinine 10.23 on latest BMP.
[2025-09-14 04:12] LABS: Hematocrit 24.2 % (42.0-52.0); Hemoglobin 7.3 g/dL (14.0-18.0); Immature Granulocyte Percent A 0.2 % (0-0.5); Lymphocytes Absolute Auto 0.70 K/mm3 (0.9-3.2); Mean Corpuscular HGB Conc 30.2 g/dl (32-36); Mean Corpuscular Hemoglobin 29.0 pg (26-34); Mean Corpuscular Volume 96.0 fl (80-100); Nucleated Red Blood Cells Absolute Auto 0.000 K/mm3 (0.0-0.012); Nucleated Red Blood Cells Perc 0.0 % (0.0-0.2); Platelet Count Result 205 k/mm3 (150-375); Red Blood Count 2.52 M/mm3 (4.6-6.20); White Blood Count 4.8 K/mm3 (4.5-10.0)
[2025-09-14 04:39] LABS: Alanine Aminotransferase 44 U/L (6-50); Albumin Level 3.2 g/dL (3.5-5.1); Alkaline Phosphatase 135 U/L (38-126); Anion Gap 12 mmol/L (4-12); Aspartate Amino Transferase 24 U/L (17-59); Bilirubin,Total 0.4 mg/dL (0.2-1.3); Calcium 8.8 mg/dL (8.4-10.2); Carbon Dioxide 22 mmol/L (22-30); Chloride 108 mmol/L (98-107); Estimated CRCL calculation 7 ml/min; Estimated Glomerular Filt Rate 5; Glucose 182 mg/dL (65-110); Potassium 4.9 mmol/L (3.4-5.0); Sodium 142 mmol/L (137-145); Total Protein 5.7 g/dL (6.3-8.2)
[2025-09-14 04:55] LABS: Blood Urea Nitrogen 118 mg/dL (9-20)
--- NOTE | 2025-09-14 09:32 | PM.PNCARD ---
Progress Note: A&P Assessment and Plan (1) Atrial fibrillation with slow ventricular response: Code(s): I48.91 - Unspecified atrial fibrillation Status: Chronic Plan Atrial fibrillation of unknown to onset/duration patient reports no prior knowledge of any cardiac problems. He clearly has AV node dysfunction as he is in a junctional escape rhythm with a narrow QRS therefore it is relatively stable. He was on a low dose of carvedilol which appropriately has been stopped. It seems clear that he will need dialysis for volume management. Systemic anticoagulation for his atrial fibrillation is indicated but I would avoid starting this until it is clear that he is or is not going to have procedures for dialysis access etc.. His echocardiogram has been ordered and is pending. The records from his physicians at [facility] would be interesting to review however are not available at the time this consultation. Henrry Lou MD [facility] Subjective Date/time seen: Date of service: 09/14/25 09:32 Interval history: Follow-up visit in this 65-year-old man with: Chronic kidney disease which has progressed to end-stage renal failure with significant volume overload patient presented here for treatment of severe edema including scrotal edema. Upon admission found to be bradycardic in atrial fibrillation with junctional escape rhythm his heart rate is in the 30s he is asymptomatic with this. No history of syncope and very active gentleman prior to presentation. Seems that his health care is delivered at [facility]. He does recall his physicians discussing renal replacement therapy with him but this has not in place. Nephrology consultants here have seen the patient. Exam Const: General: comfortable and no acute distress HENMT: Mouth: Yes moist mucous membranes Eyes: Sclera: sclerae normal Neck: Neck: supple Resp: Effort & Inspection: normal respiratory effort Auscultation: clear to auscultation bilaterally Cardio: Rate: bradycardic Rhythm: regular rhythm GI: GI Palp: Yes Soft to palpation Auscultation: normal bowel sounds Skin: General skin exam: normal color Neuro: Other: Alert and oriented Extrem: Other: Significant edema Objective Data Vital Signs Vital Signs: Vital Signs - 24 hr 09/13/25 09:46 09/13/25 10:01 09/13/25 10:16 Temperature Pulse Rate 39 L 37 L 37 L Respiratory Rate 18 16 14 Blood Pressure 180/72 H 163/75 H 152/80 H Pulse Oximetry 100 100 100 Oxygen Delivery 09/13/25 10:31 09/13/25 10:47 09/13/25 11:08 Temperature 36.4 C Pulse Rate 36 L 34 L 37 L Respiratory Rate 12 14 16 Blood Pressure 157/71 H 153/76 H 163/67 H Pulse Oximetry 97 98 98 Oxygen Delivery 09/13/25 11:57 09/13/25 12:00 09/13/25 14:00 Temperature 36.4 C Pulse Rate 39 L 37 L 35 L Respiratory Rate 16 Blood Pressure 173/69 H Pulse Oximetry 99 Oxygen Delivery 09/13/25 16:00 09/13/25 16:00 09/13/25 18:00 Temperature 36.5 C Pulse Rate 38 L 37 L 36 L Respiratory Rate 18 Blood Pressure 179/57 H Pulse Oximetry 96 Oxygen Delivery 09/13/25 20:00 09/13/25 20:00 09/13/25 20:55 Temperature 36.5 C Pulse Rate 39 L 38 L 39 L Respiratory Rate 18 18 Blood Pressure 160/48 H Pulse Oximetry 95 95 Oxygen Delivery Room Air 09/13/25 22:00 09/13/25 23:55 09/14/25 00:00 Temperature 36.5 C Pulse Rate 44 L 38 L 35 L Respiratory Rate 18 18 Blood Pressure 159/66 H Pulse Oximetry 93 93 Oxygen Delivery Room Air 09/14/25 00:00 09/14/25 02:00 09/14/25 03:42 Temperature Pulse Rate 37 L 36 L 38 L Respiratory Rate 18 Blood Pressure Pulse Oximetry 93 Oxygen Delivery Room Air 09/14/25 04:00 09/14/25 04:00 09/14/25 06:00 Temperature 36.4 C Pulse Rate 38 L 38 L 42 L Respiratory Rate 18 Blood Pressure 153/72 H Pulse Oximetry 94 Oxygen Delivery 09/14/25 08:00 09/14/25 08:33 Temperature 36.5 C Pulse Rate 38 L Respiratory Rate 17 Blood Pressure 149/44 H Pulse Oximetry 99 96 Oxygen Delivery Room Air Intake/Output Intake/Output: Intake & Output 09/11/25 09/12/25 09/13/25 09/14/25 23:59 23:59 23:59 23:59 Intake Total 920 1740 Output Total 1200 400 Balance -280 1340 Meds/Results Medications: Active Medications Generic Name Dose Route Start Last Admin Trade Name Freq PRN Reason Stop Dose Admin Acetaminophen 650 mg 09/13/25 10:03 Acetaminophen 325 Mg Tablet PO Q4H PRN Mild Pain (1-3) or Fever Amlodipine Besylate 5 mg 09/14/25 09:00 Amlodipine Besylate 5 Mg Tablet PO DAILY [facility] Aspirin 81 mg 09/14/25 08:00 Aspirin 81 Mg Chewable Tablet PO DAILY@0800 [facility] Calcitriol 0.25 mcg 09/14/25 09:00 Calcitriol 0.25 Mcg Capsule PO DAILY [facility] Finasteride 5 mg 09/14/25 09:00 Finasteride 5 Mg Tablet PO DAILY [facility] Furosemide 40 mg 09/13/25 21:00 09/13/25 20:48 Furosemide Inj 40 Mg/4 Ml Vial IV PUSH 40 mg Q12HR [facility] Administration Heparin Sodium (Porcine) 5,000 units 09/13/25 22:00 09/14/25 05:03 Heparin Sodium 5,000 Units/Ml Vial SUB-Q Not Given Q8HR [facility] Perflutren Lipid Microsphere 0 ml 09/13/25 13:59 Perflutren Lipid Microspheres 1.5 Ml Vial Diluted To 10 Ml Total Volume IV PUSH 09/16/25 13:59 ONCE PRN adequate visualization Protocol Tamsulosin HCl 0.4 mg 09/13/25 14:10 09/13/25 15:17 Tamsulosin Hcl 0.4 Mg Capsule PO 0.4 mg DAILY [facility] Administration Radiology Results: ITS Impressions Chest X-Ray 09/13/25 09:02 IMPRESSION: 1. Small left pleural effusion. 2. Borderline heart size. Renal Ultrasound 09/14/25 08:30 IMPRESSION: 1. Bilateral diffuse increased renal cortical echogenicity consistent with medical renal disease. No hydronephrosis. 2. Small amount of ascites in the left and right upper quadrant. 3. Mild diffuse bladder wall thickening, likely related to chronic outlet obstruction from the enlarged prostate. Labs Labs: Laboratory Results - last 24 hr 09/13/25 09/13/25 09/13/25 11:06 11:28 12:22 WBC RBC Hgb Hct MCV MCH MCHC RDW Plt Count MPV Immature Gran % (Auto) Neut % (Auto) Lymph % (Auto) [place] % (Auto) Eos % (Auto) Baso % (Auto) Lymph # (Auto) [place] # (Auto) Eos # (Auto) Baso # (Auto) Abs Immat Gran (auto) Absolute Neuts (auto) Absolute Nucleated RBC Nucleated RBC % Sodium Potassium Chloride Carbon Dioxide Anion Gap BUN Creatinine Estim Creat Clear Calc Estimated GFR Glucose POC Capillary Glucose 178 H Hemoglobin A1c Calcium Magnesium Total Bilirubin AST ALT Alkaline Phosphatase Troponin I 0.087 H* Total Protein Albumin Urine Color Yellow Urine Appearance Clear Urine pH 7.5 Ur Specific [place] 1.012 Urine Protein 2+ H Urine Glucose (UA) 1+ H Urine Ketones Negative Ur Blood (Man) Trace Urine Nitrate Negative Urine Bilirubin Negative Urine Urobilinogen 0.2 Leukocyte Esterase Rfl Negative Urine RBC 0-2 Urine WBC 0-5 Ur Squamous Epith Cells None seen Urine Bacteria None seen Urine Casts 0-2 Ur Random Sodium Ur Random Urea 09/13/25 09/13/25 09/13/25 14:11 16:33 18:35 WBC RBC Hgb Hct MCV MCH MCHC RDW Plt Count MPV Immature Gran % (Auto) Neut % (Auto) Lymph % (Auto) [place] % (Auto) Eos % (Auto) Baso % (Auto) Lymph # (Auto) [place] # (Auto) Eos # (Auto) Baso # (Auto) Abs Immat Gran (auto) Absolute Neuts (auto) Absolute Nucleated RBC Nucleated RBC % Sodium 141 Potassium 5.1 H Chloride 108 H Carbon Dioxide 22 Anion Gap 11 BUN 118 H* Creatinine 10.23 H Estim Creat Clear Calc 7 Estimated GFR 5 L Glucose 204 H POC Capillary Glucose 153 H Hemoglobin A1c 6.6 H Calcium 8.6 Magnesium 2.3 Total Bilirubin AST ALT Alkaline Phosphatase Troponin I 0.085 H* Total Protein Albumin Urine Color Urine Appearance Urine pH Ur Specific [place] Urine Protein Urine Glucose (UA) Urine Ketones Ur Blood (Man) Urine Nitrate Urine Bilirubin Urine Urobilinogen Leukocyte Esterase Rfl Urine RBC Urine WBC Ur Squamous Epith Cells Urine Bacteria Urine Casts Ur Random Sodium Ur Random Urea 09/13/25 09/13/25 09/14/25 20:04 22:48 03:41 WBC 4.8 RBC 2.52 L Hgb 7.3 L Hct 24.2 L MCV 96.0 MCH 29.0 MCHC 30.2 L RDW 14.7 H Plt Count 205 MPV 11.5 H Immature Gran % (Auto) 0.2 Neut % (Auto) 70.3 Lymph % (Auto) 14.7 L [place] % (Auto) 9.6 H Eos % (Auto) 4.4 Baso % (Auto) 0.8 Lymph # (Auto) 0.70 L [place] # (Auto) 0.5 Eos # (Auto) 0.2 Baso # (Auto) 0.0 Abs Immat Gran (auto) 0.01 Absolute Neuts (auto) 3.4 Absolute Nucleated RBC 0.000 Nucleated RBC % 0.0 Sodium 142 Potassium 4.9 Chloride 108 H Carbon Dioxide 22 Anion Gap 12 BUN 118 H* Creatinine 9.68 H Estim Creat Clear Calc 7 Estimated GFR 5 L Glucose 182 H POC Capillary Glucose 214 H Hemoglobin A1c Calcium 8.8 Magnesium Total Bilirubin 0.4 AST 24 ALT 44 Alkaline Phosphatase 135 H Troponin I Total Protein 5.7 L Albumin 3.2 L Urine Color Urine Appearance Urine pH Ur Specific [place] Urine Protein Urine Glucose (UA) Urine Ketones Ur Blood (Man) Urine Nitrate Urine Bilirubin Urine Urobilinogen Leukocyte Esterase Rfl Urine RBC Urine WBC Ur Squamous Epith Cells Urine Bacteria Urine Casts Ur Random Sodium 107 Ur Random Urea 309 09/14/25 07:24 WBC RBC Hgb Hct MCV MCH MCHC RDW Plt Count MPV Immature Gran % (Auto) Neut % (Auto) Lymph % (Auto) [place] % (Auto) Eos % (Auto) Baso % (Auto) Lymph # (Auto) [place] # (Auto) Eos # (Auto) Baso # (Auto) Abs Immat Gran (auto) Absolute Neuts (auto) Absolute Nucleated RBC Nucleated RBC % Sodium Potassium Chloride Carbon Dioxide Anion Gap BUN Creatinine Estim Creat Clear Calc Estimated GFR Glucose POC Capillary Glucose 161 H Hemoglobin A1c Calcium Magnesium Total Bilirubin AST ALT Alkaline Phosphatase Troponin I Total Protein Albumin Urine Color Urine Appearance Urine pH Ur Specific [place] Urine Protein Urine Glucose (UA) Urine Ketones Ur Blood (Man) Urine Nitrate Urine Bilirubin Urine Urobilinogen Leukocyte Esterase Rfl Urine RBC Urine WBC Ur Squamous Epith Cells Urine Bacteria Urine Casts Ur Random Sodium Ur Random Urea
[2025-09-14 09:48] LABS: Hepatitis B Surface Antigen Negative (Negative)
[2025-09-14 10:06] LABS: Hepatitis B Surface Anti Res Negative
[2025-09-14] MEDS: FUROSEMIDE INJ 40 MG/4 ML VIAL IV PUSH (10:08)
[2025-09-14] MEDS: ASPIRIN 81 MG CHEWABLE TABLET PO (10:08)
[2025-09-14] MEDS: TAMSULOSIN HCL 0.4 MG CAPSULE PO (10:09)
[2025-09-14] MEDS: FINASTERIDE 5 MG TABLET PO (10:09)
--- NOTE | 2025-09-14 11:20 | P.PNIM_ITS ---
Progress Note: A&P Assessment and Plan (1) Kidney failure: Qualifiers: Acute renal failure type: unspecified Chronic kidney disease stage: stage 5 (GFR < 15), not on chronic dialysis Renal failure chronicity: acute on chronic Qualified Code(s): N17.9 - Acute kidney failure, unspecified; N18.5 - Chronic kidney disease, stage 5 Code(s): N19 - Unspecified kidney failure Status: Acute Assessment and Plan: Acute on chronic. Patient presents with lower extremity edema onset 2 days ago. Cr 10.25 on admission (baseline Cr: 7-8) Renal ultrasound shows medical renal disease, no hydronephrosis, small amount of ascites and diffuse bladder wall thickening UA: 2+ protein, 1+ glucose. No concern for infection Nephrology consult. Old records requested. Continue IV Lasix. Monitor urine output, electrolytes and renal function. (2) Urinary retention: Code(s): R33.9 - Retention of urine, unspecified Status: Acute Assessment and Plan: Urine retention noted in ED. Patient is on tamsulosin and finasteride but has not been taking recently as he has had an unable to obtain it. Several unsuccessful attempts to catheterize patient in ED. Patient was eventually able to void. Urology consulted and coude catheter was able to be placed. Monitor urine output. Continue tamsulosin and finasteride. Voiding trial toward the end of his hospitalization. (3) Elevated troponin: Code(s): R79.89 - Other specified abnormal findings of blood chemistry Status: Acute Assessment and Plan: Troponin elevated to 0.093 before trending down. Patient denies SOB, chest pain, arm pain, jaw pain. Elevated troponin likely secondary to renal failure and junctional rhythm. Cardiology following. Appreciate their input. (4) Lower extremity edema: Code(s): R60.0 - Localized edema Status: Acute Assessment and Plan: Patient presents with 2 days of lower extremity edema. Echo showing EF 40-45% with moderate-severe aortic stenosis and moderate-severe biatrial dilation with mild MR. Diastolic function is indeterminate. Edema likely related to renal failure but cannot exclude CHF. 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 Telemetry suggestive of occasional 2nd degree type 1 block Patient is not on anticoagulation. -holding carvedilol; avoid AVN blocking drugs -monitor on tele (6) Bradycardia: Code(s): R00.1 - Bradycardia, unspecified Status: Acute Assessment and Plan: EKG showed atrial fibrillation with slow ventricular response. Telemetry showing junctional rhythm. Carvedilol has been held. Cardiology has been consulted. Follow on telemetry. 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 use Diabetes mellitus type: type 2 Qualified Code(s): E11.22 - Type 2 diabetes mellitus with diabetic chronic kidney disease; N18.5 - Chronic kidney disease, stage 5; Z79.4 - prison (current) use of insulin Code(s): E11.9 - Type 2 diabetes mellitus without complications Status: Acute Assessment and Plan: hypoglycemia protocol - POC blood glucose ACHS - home medication: Tresiba, mounjaro, lispro - correct regimen ordered: Low-dose correctional scale - A1C 6.6% Plan Diet: Renal DVT prophylaxis: Heparin subcutaneous Code status: Full Subjective Date/time seen: 09/14/25 11:20 Interval history: 6yo male with DM 2, HTN, CKD, hyperlipidemia presents to the ED on 09/13/2025 with complaints of bilateral lower extremity edema onset 2 days ago. Patient slept well. No chest pain or shortness of breath. No nausea or vomiting. He has gained about 20 lb over the past few days. Urine output has been poor. He has noted the urine output has increased since starting diuretics. He has spoken to his physicians about dialysis but no decisions were made about starting either PD or hemodialysis. Exam Narrative: AF 97.7 149/44 38 17 96% ra Gen - NARD Chest - CTA bilaterally, nml RR CV - bradycardic. Tele showing junctional rhythm Abd - Soft, NT. Suprapubic fullness. Ext -bilateral lower extremity edema. Neuro - Alert and appropriate Psych - Nml mood and affect Skin - Warm and dry Objective Data Vital Signs Vital Signs: Vital Signs - 24 hr 09/13/25 11:57 09/13/25 12:00 09/13/25 14:00 Temperature 97.6 F Pulse Rate 39 L 37 L 35 L Respiratory Rate 16 Blood Pressure 173/69 H Pulse Oximetry 99 Oxygen Delivery 09/13/25 16:00 09/13/25 16:00 09/13/25 18:00 Temperature 97.7 F Pulse Rate 38 L 37 L 36 L Respiratory Rate 18 Blood Pressure 179/57 H Pulse Oximetry 96 Oxygen Delivery 09/13/25 20:00 09/13/25 20:00 09/13/25 20:55 Temperature 97.7 F Pulse Rate 39 L 38 L 39 L Respiratory Rate 18 18 Blood Pressure 160/48 H Pulse Oximetry 95 95 Oxygen Delivery Room Air 09/13/25 22:00 09/13/25 23:55 09/14/25 00:00 Temperature 97.7 F Pulse Rate 44 L 38 L 35 L Respiratory Rate 18 18 Blood Pressure 159/66 H Pulse Oximetry 93 93 Oxygen Delivery Room Air 09/14/25 00:00 09/14/25 02:00 09/14/25 03:42 Temperature Pulse Rate 37 L 36 L 38 L Respiratory Rate 18 Blood Pressure Pulse Oximetry 93 Oxygen Delivery Room Air 09/14/25 04:00 09/14/25 04:00 09/14/25 06:00 Temperature 97.6 F Pulse Rate 38 L 38 L 42 L Respiratory Rate 18 Blood Pressure 153/72 H Pulse Oximetry 94 Oxygen Delivery 09/14/25 08:00 09/14/25 08:33 Temperature 97.7 F Pulse Rate 38 L Respiratory Rate 17 Blood Pressure 149/44 H Pulse Oximetry 99 96 Oxygen Delivery Room Air Intake/Output Intake/Output: Intake & Output 09/11/25 09/12/25 09/13/25 09/14/25 23:59 23:59 23:59 23:59 Intake Total 920 1740 Output Total 1200 400 Balance -280 1340 Meds/Results Medications: Active Medications Generic Name Dose Route Start Last Admin Trade Name Freq PRN Reason Stop Dose Admin Acetaminophen 650 mg 09/13/25 10:03 Acetaminophen 325 Mg Tablet PO Q4H PRN Mild Pain (1-3) or Fever Amlodipine Besylate 5 mg 09/14/25 09:00 09/14/25 10:09 Amlodipine Besylate 5 Mg Tablet PO 5 mg DAILY [facility] Administration Aspirin 81 mg 09/14/25 08:00 09/14/25 10:08 Aspirin 81 Mg Chewable Tablet PO 81 mg DAILY@0800 [facility] Administration Calcitriol 0.25 mcg 09/14/25 09:00 09/14/25 10:09 Calcitriol 0.25 Mcg Capsule PO 0.25 mcg DAILY [facility] Administration Finasteride 5 mg 09/14/25 09:00 09/14/25 10:09 Finasteride 5 Mg Tablet PO 5 mg DAILY [facility] Administration Furosemide 40 mg 09/13/25 21:00 09/14/25 10:08 Furosemide Inj 40 Mg/4 Ml Vial IV PUSH 40 mg Q12HR [facility] Administration Heparin Sodium (Porcine) 5,000 units 09/13/25 22:00 09/14/25 05:03 Heparin Sodium 5,000 Units/Ml Vial SUB-Q Not Given Q8HR [facility] Perflutren Lipid Microsphere 0 ml 09/13/25 13:59 Perflutren Lipid Microspheres 1.5 Ml Vial Diluted To 10 Ml Total Volume IV PUSH 09/16/25 13:59 ONCE PRN adequate visualization Protocol Tamsulosin HCl 0.4 mg 09/13/25 14:10 09/14/25 10:09 Tamsulosin Hcl 0.4 Mg Capsule PO 0.4 mg DAILY [facility] Administration Radiology Results: ITS Impressions Chest X-Ray 09/13/25 09:02 IMPRESSION: 1. Small left pleural effusion. 2. Borderline heart size. Renal Ultrasound 09/14/25 08:30 IMPRESSION: 1. Bilateral diffuse increased renal cortical echogenicity consistent with medical renal disease. No hydronephrosis. 2. Small amount of ascites in the left and right upper quadrant. 3. Mild diffuse bladder wall thickening, likely related to chronic outlet obstruction from the enlarged prostate. Labs Labs: Laboratory Results - last 24 hr 09/13/25 09/13/25 09/13/25 11:06 11:28 12:22 WBC RBC Hgb Hct MCV MCH MCHC RDW Plt Count MPV Immature Gran % (Auto) Neut % (Auto) Lymph % (Auto) [place] % (Auto) Eos % (Auto) Baso % (Auto) Lymph # (Auto) [place] # (Auto) Eos # (Auto) Baso # (Auto) Abs Immat Gran (auto) Absolute Neuts (auto) Absolute Nucleated RBC Nucleated RBC % Sodium Potassium Chloride Carbon Dioxide Anion Gap BUN Creatinine Estim Creat Clear Calc Estimated GFR Glucose POC Capillary Glucose 178 H Hemoglobin A1c Calcium Magnesium Total Bilirubin AST ALT Alkaline Phosphatase Troponin I 0.087 H* Total Protein Albumin Urine Color Yellow Urine Appearance Clear Urine pH 7.5 Ur Specific [place] 1.012 Urine Protein 2+ H Urine Glucose (UA) 1+ H Urine Ketones Negative Ur Blood (Man) Trace Urine Nitrate Negative Urine Bilirubin Negative Urine Urobilinogen 0.2 Leukocyte Esterase Rfl Negative Urine RBC 0-2 Urine WBC 0-5 Ur Squamous Epith Cells None seen Urine Bacteria None seen Urine Casts 0-2 Ur Random Sodium Ur Random Urea Hep Bs Antigen Hep Bs Antibody 09/13/25 09/13/25 09/13/25 14:11 16:33 18:35 WBC RBC Hgb Hct MCV MCH MCHC RDW Plt Count MPV Immature Gran % (Auto) Neut % (Auto) Lymph % (Auto) [place] % (Auto) Eos % (Auto) Baso % (Auto) Lymph # (Auto) [place] # (Auto) Eos # (Auto) Baso # (Auto) Abs Immat Gran (auto) Absolute Neuts (auto) Absolute Nucleated RBC Nucleated RBC % Sodium 141 Potassium 5.1 H Chloride 108 H Carbon Dioxide 22 Anion Gap 11 BUN 118 H* Creatinine 10.23 H Estim Creat Clear Calc 7 Estimated GFR 5 L Glucose 204 H POC Capillary Glucose 153 H Hemoglobin A1c 6.6 H Calcium 8.6 Magnesium 2.3 Total Bilirubin AST ALT Alkaline Phosphatase Troponin I 0.085 H* Total Protein Albumin Urine Color Urine Appearance Urine pH Ur Specific [place] Urine Protein Urine Glucose (UA) Urine Ketones Ur Blood (Man) Urine Nitrate Urine Bilirubin Urine Urobilinogen Leukocyte Esterase Rfl Urine RBC Urine WBC Ur Squamous Epith Cells Urine Bacteria Urine Casts Ur Random Sodium Ur Random Urea Hep Bs Antigen Hep Bs Antibody 09/13/25 09/13/25 09/14/25 20:04 22:48 03:41 WBC 4.8 RBC 2.52 L Hgb 7.3 L Hct 24.2 L MCV 96.0 MCH 29.0 MCHC 30.2 L RDW 14.7 H Plt Count 205 MPV 11.5 H Immature Gran % (Auto) 0.2 Neut % (Auto) 70.3 Lymph % (Auto) 14.7 L [place] % (Auto) 9.6 H Eos % (Auto) 4.4 Baso % (Auto) 0.8 Lymph # (Auto) 0.70 L [place] # (Auto) 0.5 Eos # (Auto) 0.2 Baso # (Auto) 0.0 Abs Immat Gran (auto) 0.01 Absolute Neuts (auto) 3.4 Absolute Nucleated RBC 0.000 Nucleated RBC % 0.0 Sodium 142 Potassium 4.9 Chloride 108 H Carbon Dioxide 22 Anion Gap 12 BUN 118 H* Creatinine 9.68 H Estim Creat Clear Calc 7 Estimated GFR 5 L Glucose 182 H POC Capillary Glucose 214 H Hemoglobin A1c Calcium 8.8 Magnesium Total Bilirubin 0.4 AST 24 ALT 44 Alkaline Phosphatase 135 H Troponin I Total Protein 5.7 L Albumin 3.2 L Urine Color Urine Appearance Urine pH Ur Specific [place] Urine Protein Urine Glucose (UA) Urine Ketones Ur Blood (Man) Urine Nitrate Urine Bilirubin Urine Urobilinogen Leukocyte Esterase Rfl Urine RBC Urine WBC Ur Squamous Epith Cells Urine Bacteria Urine Casts Ur Random Sodium 107 Ur Random Urea 309 Hep Bs Antigen Negative Hep Bs Antibody Negative 09/14/25 07:24 WBC RBC Hgb Hct MCV MCH MCHC RDW Plt Count MPV Immature Gran % (Auto) Neut % (Auto) Lymph % (Auto) [place] % (Auto) Eos % (Auto) Baso % (Auto) Lymph # (Auto) [place] # (Auto) Eos # (Auto) Baso # (Auto) Abs Immat Gran (auto) Absolute Neuts (auto) Absolute Nucleated RBC Nucleated RBC % Sodium Potassium Chloride Carbon Dioxide Anion Gap BUN Creatinine Estim Creat Clear Calc Estimated GFR Glucose POC Capillary Glucose 161 H Hemoglobin A1c Calcium Magnesium Total Bilirubin AST ALT Alkaline Phosphatase Troponin I Total Protein Albumin Urine Color Urine Appearance Urine pH Ur Specific [place] Urine Protein Urine Glucose (UA) Urine Ketones Ur Blood (Man) Urine Nitrate Urine Bilirubin Urine Urobilinogen Leukocyte Esterase Rfl Urine RBC Urine WBC Ur Squamous Epith Cells Urine Bacteria Urine Casts Ur Random Sodium Ur Random Urea Hep Bs Antigen Hep Bs Antibody
--- NOTE | 2025-09-14 11:28 | P.PNNP_ITS ---
Progress Note: A&P Assessment and Plan (1) Stage 5 chronic kidney disease: Code(s): N18.5 - Chronic kidney disease, stage 5 Status: Chronic Assessment and Plan: * known advanced disease at baseline * baseline creatinine running ~ 8.5 - 9.5mg/dL for the last year * BUNs have been running ~ 120 - 140mg/dL in that same time frame * thought to be secondary to diabetic nephropathy * associated with proteinuria, hyperkalemia, anemia, and hyperphosphotemia * on Veltassa and renvela for control of K+ and Phos * Aranesp ordered for anemia (but unclear if getting/taking) * follows with Dr. Elia Torres for ongoing CKD management * has been quite resistant to dialysis initiation due to his travel schedule/work (works in [place]) (2) Azotemia: Code(s): R79.89 - Other specified abnormal findings of blood chemistry Status: Chronic Assessment and Plan: * baseline blood urea nitrogen readings running ~ 120 - 140mg/dL in the last year * presumably due to progressive decline in kidney function * however, necessity of diuretic therapy likely playing a role * furthermore, cannot discount possible GI blood loss given his anemia (3) Lower extremity edema: Code(s): R60.0 - Localized edema Status: Acute Assessment and Plan: * likely a manifestation of advanced CKD in association with proteinuria * initiated on IV diuretics * given his advaned CKD, unclear how effective diuretics will be * more concerning, this intervention could push/worsen his underlying CKD (4) Atrial fibrillation with slow ventricular response: Code(s): I48.91 - Unspecified atrial fibrillation Status: Chronic Assessment and Plan: * as noted by admission EKG * holding carvedilo and avoiding AVN blocking drugs * follow telemetry * not on anticoagulation at this time * Echo pending * Cardiology following (5) Bradycardia: Code(s): R00.1 - Bradycardia, unspecified Status: Acute Assessment and Plan: * also noted on admission * see #4 * Cardiology following (6) Anemia: Code(s): D64.9 - Anemia, unspecified Status: Chronic Assessment and Plan: * due to advanced CKD * follow trend of H/H * check anemia stuides * start LOUIE while hospitalized (7) Hypertension: Code(s): I10 - Essential (primary) hypertension Status: Chronic Assessment and Plan: * resume home medications * diuresis may help to some degree * suspt may need further medication adjustment * follow trend of hemodyanmics (8) Diabetes: Qualifiers: Diabetes mellitus type: type 2 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: with intermediate use Diabetes mellitus complication status: with kidney complications Diabetes mellitus complication detail: with chronic kidney disease Chronic kidney disease stage: stage 5 (GFR < 15), not on chronic dialysis Qualified Code(s): E11.22 - Type 2 diabetes mellitus with diabetic chronic kidney disease; N18.5 - Chronic kidney disease, stage 5; Z79.4 - alf (current) use of insulin Code(s): E11.9 - Type 2 diabetes mellitus without complications Status: Acute Assessment and Plan: * follow accu-cheks * glycemic control per hospitalist Another long and extensive discussion (> 20 minutes) with patient regarding his advanced kidney disease and the limitations that medical therapy alone will provide. I once again brought up the likely need for BARN BOSS/dialysis which he appeared to voice understanding to but did not seem want to proceed with this intervention as this time. Will continue to follow. L Subjective Date/time seen: 09/14/25 11:28 Interval history: Follow-up for advanced chronic kidney disease. Given his admission weight, he states that he has gained about 20 pounds likely related to fluid retention; better urine output noted with diuretic therapy; denies any shortness of breath or chest discomfort at the time of my visit. Exam 2 Narrative: General: WD/WN male in NAD Heart: bradycardia normal S1 and S2; no rub Lungs: clear anteriolry Abdomen: soft, nontender, nondistended, positive bowel sounds Extremities: no cyanosis or clubbing; 2+ edema Skin: warm and dry Objective Data Vital Signs Vital Signs: Vital Signs Temp Pulse Resp BP Pulse Ox O2 Del Method 09/14/25 11:00 97.6 F 40 L 16 174/68 H 98 09/14/25 08:40 40 L 09/14/25 08:33 96 Room Air 09/14/25 08:00 97.7 F 38 L 17 149/44 H 99 09/14/25 06:00 42 L 09/14/25 04:00 38 L 09/14/25 04:00 97.6 F 38 L 18 153/72 H 94 09/14/25 03:42 38 L 18 93 Room Air 09/14/25 02:00 36 L 09/14/25 00:00 37 L 09/14/25 00:00 35 L 18 93 Room Air 09/13/25 23:55 97.7 F 38 L 18 159/66 H 93 09/13/25 22:00 44 L 09/13/25 20:55 39 L 18 95 Room Air 09/13/25 20:00 38 L 09/13/25 20:00 97.7 F 39 L 18 160/48 H 95 Intake/Output Intake/Output: Intake & Output 09/11/25 09/12/25 09/13/25 09/14/25 23:59 23:59 23:59 23:59 Intake Total 920 2220 Output Total 1200 700 Balance -280 1520 Meds/Results Medications: Active Medications Generic Name Dose Route Start Last Admin Trade Name Freq PRN Reason Stop Dose Admin Acetaminophen 650 mg 09/13/25 10:03 Acetaminophen 325 Mg Tablet PO Q4H PRN Mild Pain (1-3) or Fever Amlodipine Besylate 5 mg 09/14/25 09:00 09/14/25 10:09 Amlodipine Besylate 5 Mg Tablet PO 5 mg DAILY SHELDON Administration Aspirin 81 mg 09/14/25 08:00 09/14/25 10:08 Aspirin 81 Mg Chewable Tablet PO 81 mg DAILY@0800 SHELDON Administration Calcitriol 0.25 mcg 09/14/25 09:00 09/14/25 10:09 Calcitriol 0.25 Mcg Capsule PO 0.25 mcg DAILY SHELDON Administration Finasteride 5 mg 09/14/25 09:00 09/14/25 10:09 Finasteride 5 Mg Tablet PO 5 mg DAILY SHELDON Administration Furosemide 40 mg 09/13/25 21:00 09/14/25 10:08 Furosemide Inj 40 Mg/4 Ml Vial IV PUSH 40 mg Q12HR SHELDON Administration Heparin Sodium (Porcine) 5,000 units 09/13/25 22:00 09/14/25 14:27 Heparin Sodium 5,000 Units/Ml Vial SUB-Q 5,000 units Q8HR SHELDON Administration Perflutren Lipid Microsphere 0 ml 09/13/25 13:59 Perflutren Lipid Microspheres 1.5 Ml Vial Diluted To 10 Ml Total Volume IV PUSH 09/16/25 13:59 ONCE PRN adequate visualization Protocol Tamsulosin HCl 0.4 mg 09/13/25 14:10 09/14/25 10:09 Tamsulosin Hcl 0.4 Mg Capsule PO 0.4 mg DAILY SHELDON Administration Radiology Results: ITS Impressions Chest X-Ray 09/13/25 09:02 IMPRESSION: 1. Small left pleural effusion. 2. Borderline heart size. Renal Ultrasound 09/14/25 08:30 IMPRESSION: 1. Bilateral diffuse increased renal cortical echogenicity consistent with medical renal disease. No hydronephrosis. 2. Small amount of ascites in the left and right upper quadrant. 3. Mild diffuse bladder wall thickening, likely related to chronic outlet obstruction from the enlarged prostate. Labs Labs: Laboratory Tests 09/14/25 03:41 09/14/25 03:41 Calcium 8.8 Total Bilirubin 0.4 AST 24 ALT 44 Alkaline Phosphatase 135 H Total Protein 5.7 L Albumin 3.2 L
--- NOTE | 2025-09-14 12:06 | WPDURCON ---
Assessment and Plan Assessment and plan (1) Urinary retention: Code(s): R33.9 - Retention of urine, unspecified Status: Acute (2) BPH (benign prostatic hyperplasia): Code(s): N40.0 - Benign prostatic hyperplasia without lower urinary tract symptoms Status: Acute (3) Stage 5 chronic kidney disease: Code(s): N18.5 - Chronic kidney disease, stage 5 Status: Chronic Plan -I was able to place a 16fr coude catheter without issue. Urojet utilized. patient tolerated well. clear yellow urine on return. Catheter advanced to the Y and balloon inflated without issue. catheter secured with statlock device. -Penile edema decreased after manual compression of the penis. -keep penis and scrotum elevated -maintain leiva catheter -continue tamsulosin and finasteride. Urology Consult Note HPI Date Seen: 09/14/25 Requesting Physician: Mele Alexander MD Primary Care Provider: PHYSICIAN NOT ON STAFF Consult Narrative Narrative: Colt Islas is a 65-year-old male with past medical history of DM 2, HTN, CKD, hyperlipidemia presents to the ED on 09/13/2025 with complaints of bilateral lower extremity edema onset 2 days ago. Patient denies shortness of breath, chest pain, fevers, chills but endorses a cough that started yesterday with clear sputum. He further endorses decreased urinary output over the past couple of days. Patient states he had an episode similar to this last year and was hospitalized at [facility]. He follows nephrology and Internal Medicine at [facility]. Patient denies any history of CHF. Noted to be bradycardic in the 30s with AFib but asymptomatic. Patient states he usually runs 5 miles a day but has had difficulty over the past couple days due to the edema. After being weighed in the ED, patient stated he gained 20 lb in ?a few days.? Initial vital signs 149/66, HR 46, respirations 14, afebrile and 100% on room air EKG shows atrial fibrillation with slow ventricular response with rate of 41, old septal myocardial infarction Chemistry significant for anion gap 15, BUN 117, creatinine 10.25, glucose elevated at 187 ALT 54, alk-phos 162, BNP >30,000. Initial troponin 0.087. UA negative for infection Urology was consulted for possible urine retention noted in ED. patient is on tamsulosin and finasteride but has not been taking recently as he has had an unable to obtain it. Several unsuccessful attempts to catheterize patient in ED. Patient was eventually able to void. PVR's on the floor have been as high as 572ml. His home tamsulosin and finasteride were restarted. Review of Systems Review of Systems: All systems reviewed & are unremarkable except as noted in HPI and below PMFSH Past Medical History Medical History (Updated 09/14/25 @ 12:15 by Sheeba Ortiz APRN) Chronic kidney disease Hypertension Anemia Diabetes Social History Social History Smoking status: Never smoker Alcohol intake: never Substance use: never Lack of Transportation: No Lack of Food: Never True Current Housing: I Have Housing Concerned About Future Housing: No Difficulty Paying Gas/Electric Bills: No Difficulty Paying for Meds: No Currently Unemployed: No Education: Master's Degree or Higher Difficulty w/ Childcare or Family Care: No Spiritual care concerns: No Meds Home Medications and Allergies Home Medications ?Medication ?Instructions ?Recorded ?Confirmed ?Type amlodipine 5 mg tablet 5 mg PO DAILY 09/13/25 09/13/25 History calcitriol 0.25 mcg capsule 0.25 mcg PO DAILY 09/13/25 09/13/25 History carvedilol 3.125 mg tablet 3.125 mg PO Q12H 09/13/25 09/13/25 History finasteride 5 mg tablet 5 mg PO DAILY 09/13/25 09/13/25 History insulin degludec 100 unit/mL (3 10 unit subcut HS 09/13/25 09/13/25 History mL) subcutaneous pen (Tresiba FlexTouch U-100 insulin) insulin lispro 100 unit/mL 1 sliding scale dose subcut 09/13/25 09/13/25 History subcutaneous pen (Admelog SoloStar USEASDIRECTD U-100 Insulin lispro) sevelamer carbonate 800 mg tablet 800 mg PO TIDWM 09/13/25 09/14/25 History sodium bicarbonate 650 mg tablet 1,300 mg PO BID 09/13/25 09/13/25 History Held on 09/13/25. Instructions: Patient no longer taking tamsulosin 0.4 mg capsule 0.4 mg PO Q24H 09/13/25 09/13/25 History tirzepatide 5 mg/0.5 mL 5 mg subcut .BI WEEKLY 09/13/25 09/13/25 History subcutaneous pen injector (Bernardo) torsemide 20 mg tablet 100 mg PO DAILY 09/13/25 09/13/25 History Allergies Allergy/AdvReac Type Severity Reaction Status Date / Time Penicillins Allergy Intermediate Unknown Verified 09/13/25 11:43 Vital Signs Vital Signs - 24 hr 09/13/25 14:00 09/13/25 16:00 09/13/25 16:00 Temperature 97.7 F Pulse Rate 35 L 38 L 37 L Respiratory Rate 18 Blood Pressure 179/57 H Pulse Oximetry 96 Oxygen Delivery 09/13/25 18:00 09/13/25 20:00 09/13/25 20:00 Temperature 97.7 F Pulse Rate 36 L 39 L 38 L Respiratory Rate 18 Blood Pressure 160/48 H Pulse Oximetry 95 Oxygen Delivery 09/13/25 20:55 09/13/25 22:00 09/13/25 23:55 Temperature 97.7 F Pulse Rate 39 L 44 L 38 L Respiratory Rate 18 18 Blood Pressure 159/66 H Pulse Oximetry 95 93 Oxygen Delivery Room Air 09/14/25 00:00 09/14/25 00:00 09/14/25 02:00 Temperature Pulse Rate 35 L 37 L 36 L Respiratory Rate 18 Blood Pressure Pulse Oximetry 93 Oxygen Delivery Room Air 09/14/25 03:42 09/14/25 04:00 09/14/25 04:00 Temperature 97.6 F Pulse Rate 38 L 38 L 38 L Respiratory Rate 18 18 Blood Pressure 153/72 H Pulse Oximetry 93 94 Oxygen Delivery Room Air 09/14/25 06:00 09/14/25 08:00 09/14/25 08:33 Temperature 97.7 F Pulse Rate 42 L 38 L Respiratory Rate 17 Blood Pressure 149/44 H Pulse Oximetry 99 96 Oxygen Delivery Room Air Exam Const: General: comfortable and no acute distress HENMT: Face/Nose/Sinus: Normal nares present Eyes: General: appearance normal, both eyes and all related structures Resp: Effort & Inspection: normal respiratory effort Cardio: Rate: bradycardic Rhythm: abnormal rhythm : Other: penile and scrotal edema Urinary Catheter: Urinary Catheter: patent and draining (catheter placed and is patent draining clear yellow) Skin: General skin exam: normal color Neuro: Speech: normal speech Psych: Speech and movement: Normal speech and movement present Results Labs 09/14/25 03:41 09/14/25 03:41 Labs: Short CBC 09/14/25 Range/Units 03:41 WBC 4.8 (4.5-10.0) K/mm3 Hgb 7.3 L (14.0-18.0) g/dL Hct 24.2 L (42.0-52.0) % Plt Count 205 (150-375) k/mm3 BMP 09/13/25 09/14/25 18:35 03:41 Sodium 141 142 Potassium 5.1 H 4.9 Chloride 108 H 108 H Carbon Dioxide 22 22 BUN 118 H* 118 H* Creatinine 10.23 H 9.68 H Glucose 204 H 182 H Calcium 8.6 8.8 Cardiac Enzymes 09/13/25 Range/Units 14:11 Troponin I 0.085 H* (0.000-0.034) ng/mL Liver Function 09/14/25 Range/Units 03:41 Total Bilirubin 0.4 (0.2-1.3) mg/dL AST 24 (17-59) U/L ALT 44 (6-50) U/L Alkaline Phosphatase 135 H (38-126) U/L Albumin 3.2 L (3.5-5.1) g/dL
[2025-09-14] MEDS: LIDOCAINE 2% GEL UROJET 10 ML PKG MUCOUS MEM (13:48)
[2025-09-14] MEDS: EPOETIN ALFA-EPBX 20,000 UNITS/ML VIAL 20000 UNITS SUB-Q (19:10)
[2025-09-14] MEDS: FUROSEMIDE INJ 40 MG/4 ML VIAL 80 MG IV PUSH (21:17)
[2025-09-14] MEDS: INSULIN ASPART (*BKC) 100 UNITS/ML 6 UNITS SUB-Q (23:25)
[2025-09-15] VITALS (17 sets, daily range): BP systolic 139–152; BP diastolic 47–96; PULSE 37–48; RESP 15–20; TEMP 36.5–36.8; O2SAT 93–98
[2025-09-15 04:44] LABS: Hematocrit 23.7 % (42.0-52.0); Hemoglobin 7.2 g/dL (14.0-18.0); Mean Corpuscular HGB Conc 30.4 g/dl (32-36); Mean Corpuscular Hemoglobin 29.1 pg (26-34); Mean Corpuscular Volume 96.0 fl (80-100); Platelet Count Result 191 k/mm3 (150-375); Red Blood Count 2.47 M/mm3 (4.6-6.20); White Blood Count 5.5 K/mm3 (4.5-10.0)
[2025-09-15 05:16] LABS: Iron 39 ug/dL (49-181)
[2025-09-15 05:21] LABS: Parathyroid Intact 325.2 pg/mL (14.5-75.2)
[2025-09-15 05:25] LABS: Percent Iron Saturation 18 % (20-50)
[2025-09-15 05:29] LABS: Albumin Level 3.1 g/dL (3.5-5.1); Anion Gap 11 mmol/L (4-12); Calcium 8.6 mg/dL (8.4-10.2); Carbon Dioxide 21 mmol/L (22-30); Chloride 107 mmol/L (98-107); Estimated CRCL calculation 7 ml/min; Estimated Glomerular Filt Rate 5; Glucose 124 mg/dL (65-110); Potassium 4.6 mmol/L (3.4-5.0); Sodium 139 mmol/L (137-145)
[2025-09-15 05:57] LABS: Ferritin 138.00 ng/mL (11.1-264)
[2025-09-15 06:33] LABS: Vitamin B12 > 1000.0 pg/mL (239-931)
[2025-09-15] MEDS: TAMSULOSIN HCL 0.4 MG CAPSULE PO (08:46)
[2025-09-15] MEDS: ASPIRIN 81 MG CHEWABLE TABLET PO (08:46)
[2025-09-15] MEDS: FINASTERIDE 5 MG TABLET PO (08:47)
[2025-09-15] MEDS: BUMETANIDE INJ 1 MG/4 ML VIAL 2 MG IV PUSH ×2 (08:55→17:47)
[2025-09-15] MEDS: EPOETIN ALFA-EPBX 10,000 UNITS/ML VIAL 10000 UNITS SUB-Q (08:57)
--- NOTE | 2025-09-15 10:33 | PM.PNCARD ---
Progress Note: A&P Assessment and Plan (1) Atrial fibrillation with slow ventricular response: Code(s): I48.91 - Unspecified atrial fibrillation Status: Chronic Plan Persistent atrial fibrillation with slow ventricular response. Possible underlying AV kevin dysfunction CKD stage 4 Mild left ventricular systolic dysfunction ejection fraction 45% Moderate to severe aortic stenosis Hypertension controlled Diabetes mellitus type 2 plan Avoid AV kevin blocking agent Continue amlodipine Carvedilol Start oral anticoagulation Eliquis 5 mg b.i.d. Patient not a candidate for ROBERTA-inhibitor or ARB because of kidney function Subjective Date/time seen: 09/15/25 10:33 Interval history: Patient seen for follow-up for atrial fibrillation Telemetry atrial fibrillation with slow ventricular response No acute events overnight Review of Systems Review of Systems: All systems reviewed & are unremarkable except as noted in HPI and below Exam Const: General: comfortable and no acute distress HENMT: Mouth: Yes moist mucous membranes Eyes: Sclera: sclerae normal Neck: Neck: supple Resp: Effort & Inspection: normal respiratory effort Auscultation: clear to auscultation bilaterally Cardio: Rate: bradycardic Rhythm: regular rhythm Other: ejection systolic murmur GI: GI Palp: Yes Soft to palpation Auscultation: normal bowel sounds Skin: General skin exam: normal color Neuro: Other: Alert and oriented Extrem: Other: Significant edema Objective Data Vital Signs Vital Signs: Vital Signs - 24 hr 09/14/25 12:00 09/14/25 12:25 09/14/25 14:00 Temperature 36.4 C Pulse Rate 40 L 44 L 38 L Respiratory Rate 16 Blood Pressure 174/68 H Pulse Oximetry 98 Oxygen Delivery 09/14/25 15:40 09/14/25 16:00 09/14/25 16:00 Temperature 36.4 C Pulse Rate 40 L 40 L 40 L Respiratory Rate 17 17 Blood Pressure 138/55 L Pulse Oximetry 100 100 Oxygen Delivery Room Air 09/14/25 18:00 09/14/25 20:00 09/14/25 20:00 Temperature 36.6 C Pulse Rate 90 39 L 37 L Respiratory Rate 16 Blood Pressure 144/57 H Pulse Oximetry 98 Oxygen Delivery 09/14/25 21:03 09/14/25 22:00 09/14/25 23:23 Temperature Pulse Rate 39 L 38 L 39 L Respiratory Rate 16 15 Blood Pressure Pulse Oximetry 98 96 Oxygen Delivery Room Air Room Air 09/15/25 00:00 09/15/25 00:00 09/15/25 02:00 Temperature 36.5 C Pulse Rate 39 L 37 L 38 L Respiratory Rate 15 Blood Pressure 151/47 H Pulse Oximetry 96 Oxygen Delivery 09/15/25 03:56 09/15/25 04:00 09/15/25 04:00 Temperature 36.8 C Pulse Rate 39 L 39 L 40 L Respiratory Rate 15 15 Blood Pressure 145/59 H Pulse Oximetry 98 98 Oxygen Delivery Room Air 09/15/25 06:00 09/15/25 07:53 Temperature 36.6 C Pulse Rate 38 L 40 L Respiratory Rate 20 Blood Pressure 150/61 H Pulse Oximetry 97 Oxygen Delivery Intake/Output Intake/Output: Intake & Output 09/12/25 09/13/25 09/14/25 09/15/25 23:59 23:59 23:59 23:59 Intake Total 920 2220 710 Output Total 1200 1400 900 Balance -280 820 -190 Meds/Results Medications: Active Medications Generic Name Dose Route Start Last Admin Trade Name Freq PRN Reason Stop Dose Admin Acetaminophen 650 mg 09/13/25 10:03 Acetaminophen 325 Mg Tablet PO Q4H PRN Mild Pain (1-3) or Fever Amlodipine Besylate 5 mg 09/14/25 09:00 09/15/25 08:47 Amlodipine Besylate 5 Mg Tablet PO 5 mg DAILY SHELDON Administration Aspirin 81 mg 09/14/25 08:00 09/15/25 08:46 Aspirin 81 Mg Chewable Tablet PO 81 mg DAILY@0800 SHELDON Administration Bumetanide 2 mg 09/15/25 09:00 09/15/25 08:55 Bumetanide Inj 1 Mg/4 Ml Vial IV PUSH 2 mg BID SHELDON Administration Calcitriol 0.25 mcg 09/14/25 09:00 09/15/25 08:47 Calcitriol 0.25 Mcg Capsule PO 0.25 mcg DAILY SHELDON Administration Dextrose 12.5 gm 09/14/25 20:55 Dextrose 50% 25 Gm/50 Ml Syringe IV PUSH PRN PRN Hypoglycemia Protocol Epoetin Amilcar-epbx 10,000 units 09/15/25 09:00 09/15/25 08:57 Epoetin Amilcar-Epbx 10,000 Units/Ml Vial SUB-Q 10,000 units TUTHSA@09 SHELDON Administration Finasteride 5 mg 09/14/25 09:00 09/15/25 08:47 Finasteride 5 Mg Tablet PO 5 mg DAILY SHELDON Administration Glucagon 1 mg 09/14/25 20:55 Glucagon For Inj 1 Mg Vial IM PRN PRN Hypoglycemia Protocol Glucose 15 gm 09/14/25 20:55 Glucose Oral Gel 15 Gm Of Glucse In 37.5 Gm Tube PO PRN PRN Hypoglycemia Protocol Heparin Sodium (Porcine) 5,000 units 09/13/25 22:00 09/15/25 06:53 Heparin Sodium 5,000 Units/Ml Vial SUB-Q 5,000 units Q8HR SHELDON Administration Dextrose 1,000 mls @ 100 mls/hr 09/14/25 20:55 Dextrose 5% 1,000 Ml IVPB PRN PRN Hypoglycemia Protocol Insulin Aspart 3 - 6 units 09/15/25 08:00 09/15/25 08:50 Insulin Aspart (*Bkc) 100 Units/Ml SUB-Q Not Given TIDWM SHELDON Protocol Perflutren Lipid Microsphere 0 ml 09/13/25 13:59 Perflutren Lipid Microspheres 1.5 Ml Vial Diluted To 10 Ml Total Volume IV PUSH 09/16/25 13:59 ONCE PRN adequate visualization Protocol Tamsulosin HCl 0.4 mg 09/13/25 14:10 09/15/25 08:46 Tamsulosin Hcl 0.4 Mg Capsule PO 0.4 mg DAILY SHELDON Administration Radiology Results: ITS Impressions Chest X-Ray 09/13/25 09:02 IMPRESSION: 1. Small left pleural effusion. 2. Borderline heart size. Renal Ultrasound 09/14/25 08:30 IMPRESSION: 1. Bilateral diffuse increased renal cortical echogenicity consistent with medical renal disease. No hydronephrosis. 2. Small amount of ascites in the left and right upper quadrant. 3. Mild diffuse bladder wall thickening, likely related to chronic outlet obstruction from the enlarged prostate. Labs Labs: Laboratory Results - last 24 hr 09/14/25 09/14/25 09/14/25 11:41 16:23 19:56 WBC RBC Hgb Hct MCV MCH MCHC RDW Plt Count MPV Sodium Potassium Chloride Carbon Dioxide Anion Gap BUN Creatinine Estim Creat Clear Calc Estimated GFR Glucose POC Capillary Glucose 270 H 267 H 362 H Calcium Phosphorus Iron TIBC % Saturation Ferritin Albumin Vitamin B12 Vitamin D 25-Hydroxy Folate PTH Intact Hep B Core Total Ab 09/15/25 09/15/25 03:48 07:24 WBC 5.5 RBC 2.47 L Hgb 7.2 L Hct 23.7 L MCV 96.0 MCH 29.1 MCHC 30.4 L RDW 14.6 H Plt Count 191 MPV 11.7 H Sodium 139 Potassium 4.6 Chloride 107 Carbon Dioxide 21 L Anion Gap 11 BUN > 120 H* Creatinine 10.50 H Estim Creat Clear Calc 7 Estimated GFR 5 L Glucose 124 H POC Capillary Glucose 130 H Calcium 8.6 Phosphorus 8.2 H Iron 39 L TIBC 217 L % Saturation 18 L Ferritin 138.00 Albumin 3.1 L Vitamin B12 > 1000.0 H Vitamin D 25-Hydroxy 37.5 Folate 14.5 PTH Intact 325.2 H Hep B Core Total Ab Cancelled
--- NOTE | 2025-09-15 12:51 | P.PNNP_ITS ---
Progress Note: A&P Assessment and Plan (1) Stage 5 chronic kidney disease: Code(s): N18.5 - Chronic kidney disease, stage 5 Status: Chronic Assessment and Plan: * known advanced disease at baseline * baseline creatinine running ~ 8.5 - 9.5mg/dL for the last year * BUNs have been running ~ 120 - 140mg/dL in that same time frame * thought to be secondary to diabetic nephropathy * associated with proteinuria, hyperkalemia, anemia, and hyperphosphotemia * on Veltassa and renvela for control of K+ and Phos * Aranesp ordered for anemia (but unclear if getting/taking) * follows with Dr. Elia Banerjee for ongoing CKD management * has been quite resistant to dialysis initiation due to his travel schedule/work (works in [place]) * Long discussion with the patient. At this level of kidney function things happen pretty quickly. This would include fluid overload, pericarditis, hyperkalemia, etc.. This could include hospitalization or . He could end up very sick and have difficulty recovering from this in which case trips to [place] would be difficult to do after that. He is still extremely resistant to starting dialysis. He says he is going to get together with Dr. banerjee and decide when to start and which type of dialysis he needs. the patient admits that Dr. Banerjee has been trying to get him to go to education about dialysis for the last year. (2) Azotemia: Code(s): R79.89 - Other specified abnormal findings of blood chemistry Status: Chronic Assessment and Plan: * baseline blood urea nitrogen readings running ~ 120 - 140mg/dL in the last year * presumably due to progressive decline in kidney function * however, necessity of diuretic therapy likely playing a role * furthermore, cannot discount possible GI blood loss given his anemia (3) Lower extremity edema: Code(s): R60.0 - Localized edema Status: Acute Assessment and Plan: * likely a manifestation of advanced CKD in association with proteinuria * initiated on IV diuretics * given his advaned CKD, unclear how effective diuretics will be * more concerning, this intervention could push/worsen his underlying CKD (4) Atrial fibrillation with slow ventricular response: Code(s): I48.91 - Unspecified atrial fibrillation Status: Chronic Assessment and Plan: * as noted by admission EKG * holding carvedilo and avoiding AVN blocking drugs * follow telemetry * not on anticoagulation at this time * Echo Shows an EF of 40-45, and amazingly a normal pericardium. * Cardiology following (5) Bradycardia: Code(s): R00.1 - Bradycardia, unspecified Status: Acute Assessment and Plan: * also noted on admission * see #4 * Cardiology following (6) Anemia: Code(s): D64.9 - Anemia, unspecified Status: Chronic Assessment and Plan: * due to advanced CKD * follow trend of H/H * He is on Epogen * T sat only 18. B12 and folate are okay. Will give Venofer (7) Hypertension: Code(s): I10 - Essential (primary) hypertension Status: Chronic Assessment and Plan: * systolic between 130 and 160. * resumed home medications * diuresis may help to some degree * suspt may need further medication adjustment * Blood pressure not better tomorrow will adjust home medications. (8) Diabetes: Qualifiers: Diabetes mellitus type: type 2 Diabetes mellitus mcc insulin use: with mcc use Diabetes mellitus complication status: with kidney complications Diabetes mellitus complication detail: with chronic kidney disease Chronic kidney disease stage: stage 5 (GFR < 15), not on chronic dialysis Qualified Code(s): E11.22 - Type 2 diabetes mellitus with diabetic chronic kidney disease; N18.5 - Chronic kidney disease, stage 5; Z79.4 - custodial (current) use of insulin Code(s): E11.9 - Type 2 diabetes mellitus without complications Status: Acute Assessment and Plan: * follow accu-cheks * glycemic control per hospitalist Subjective Date/time seen: 09/15/25 12:51 Interval history: the patient is resting comfortably in bed. He denies nausea, vomiting, poor appetite, or sleep disorder. Exam Narrative: General: WD/WN male in NAD Heart: bradycardia normal S1 and S2; no rub Lungs: clear anteriolry Abdomen: soft, nontender, nondistended, positive bowel sounds Extremities: no cyanosis or clubbing; 2+ edema Skin: warm and dry Objective Data Vital Signs Vital Signs: Vital Signs - 24 hr 09/14/25 14:00 09/14/25 15:40 09/14/25 16:00 Temperature 97.6 F Pulse Rate 38 L 40 L 40 L Respiratory Rate 17 17 Blood Pressure 138/55 L Pulse Oximetry 100 100 Oxygen Delivery Room Air 09/14/25 16:00 09/14/25 18:00 09/14/25 20:00 Temperature 97.8 F Pulse Rate 40 L 90 39 L Respiratory Rate 16 Blood Pressure 144/57 H Pulse Oximetry 98 Oxygen Delivery 09/14/25 20:00 09/14/25 21:03 09/14/25 22:00 Temperature Pulse Rate 37 L 39 L 38 L Respiratory Rate 16 Blood Pressure Pulse Oximetry 98 Oxygen Delivery Room Air 09/14/25 23:23 09/15/25 00:00 09/15/25 00:00 Temperature 97.7 F Pulse Rate 39 L 39 L 37 L Respiratory Rate 15 15 Blood Pressure 151/47 H Pulse Oximetry 96 96 Oxygen Delivery Room Air 09/15/25 02:00 09/15/25 03:56 09/15/25 04:00 Temperature 98.3 F Pulse Rate 38 L 39 L 39 L Respiratory Rate 15 15 Blood Pressure 145/59 H Pulse Oximetry 98 98 Oxygen Delivery Room Air 09/15/25 04:00 09/15/25 06:00 09/15/25 07:53 Temperature 97.8 F Pulse Rate 40 L 38 L 40 L Respiratory Rate 20 Blood Pressure 150/61 H Pulse Oximetry 97 Oxygen Delivery 09/15/25 08:00 09/15/25 08:00 09/15/25 10:00 Temperature Pulse Rate 40 L 40 L 38 L Respiratory Rate Blood Pressure Pulse Oximetry Oxygen Delivery Room Air 09/15/25 11:47 Temperature 98.3 F Pulse Rate 39 L Respiratory Rate 20 Blood Pressure 152/62 H Pulse Oximetry 93 Oxygen Delivery Intake/Output Intake/Output: Intake & Output 09/12/25 09/13/25 09/14/25 09/15/25 23:59 23:59 23:59 23:59 Intake Total 920 2220 710 Output Total 1200 1400 900 Balance -280 820 -190 Meds/Results Medications: Active Medications Generic Name Dose Route Start Last Admin Trade Name Freq PRN Reason Stop Dose Admin Acetaminophen 650 mg 09/13/25 10:03 Acetaminophen 325 Mg Tablet PO Q4H PRN Mild Pain (1-3) or Fever Amlodipine Besylate 5 mg 09/14/25 09:00 09/15/25 08:47 Amlodipine Besylate 5 Mg Tablet PO 5 mg DAILY SHELDON Administration Aspirin 81 mg 09/14/25 08:00 09/15/25 08:46 Aspirin 81 Mg Chewable Tablet PO 81 mg DAILY@0800 SHELDON Administration Bumetanide 2 mg 09/15/25 09:00 09/15/25 08:55 Bumetanide Inj 1 Mg/4 Ml Vial IV PUSH 2 mg BID SHELDON Administration Calcitriol 0.25 mcg 09/14/25 09:00 09/15/25 08:47 Calcitriol 0.25 Mcg Capsule PO 0.25 mcg DAILY SHELDON Administration Dextrose 12.5 gm 09/14/25 20:55 Dextrose 50% 25 Gm/50 Ml Syringe IV PUSH PRN PRN Hypoglycemia Protocol Epoetin Amilcar-epbx 10,000 units 09/15/25 09:00 09/15/25 08:57 Epoetin Amilcar-Epbx 10,000 Units/Ml Vial SUB-Q 10,000 units TUTHSA@09 SHELDON Administration Finasteride 5 mg 09/14/25 09:00 09/15/25 08:47 Finasteride 5 Mg Tablet PO 5 mg DAILY SHELDON Administration Glucagon 1 mg 09/14/25 20:55 Glucagon For Inj 1 Mg Vial IM PRN PRN Hypoglycemia Protocol Glucose 15 gm 09/14/25 20:55 Glucose Oral Gel 15 Gm Of Glucse In 37.5 Gm Tube PO PRN PRN Hypoglycemia Protocol Heparin Sodium (Porcine) 5,000 units 09/13/25 22:00 09/15/25 06:53 Heparin Sodium 5,000 Units/Ml Vial SUB-Q 5,000 units Q8HR SHELDON Administration Dextrose 1,000 mls @ 100 mls/hr 09/14/25 20:55 Dextrose 5% 1,000 Ml IVPB PRN PRN Hypoglycemia Protocol Insulin Aspart 3 - 6 units 09/15/25 08:00 09/15/25 08:50 Insulin Aspart (*Bkc) 100 Units/Ml SUB-Q Not Given TIDWM SHELDON Protocol Perflutren Lipid Microsphere 0 ml 09/13/25 13:59 Perflutren Lipid Microspheres 1.5 Ml Vial Diluted To 10 Ml Total Volume IV PUSH 09/16/25 13:59 ONCE PRN adequate visualization Protocol Tamsulosin HCl 0.4 mg 09/13/25 14:10 09/15/25 08:46 Tamsulosin Hcl 0.4 Mg Capsule PO 0.4 mg DAILY SHELDON Administration Radiology Results: ITS Impressions Chest X-Ray 09/13/25 09:02 IMPRESSION: 1. Small left pleural effusion. 2. Borderline heart size. Renal Ultrasound 09/14/25 08:30 IMPRESSION: 1. Bilateral diffuse increased renal cortical echogenicity consistent with medical renal disease. No hydronephrosis. 2. Small amount of ascites in the left and right upper quadrant. 3. Mild diffuse bladder wall thickening, likely related to chronic outlet obstruction from the enlarged prostate. Labs Labs: Laboratory Results - last 24 hr 09/14/25 09/14/25 09/15/25 16:23 19:56 03:48 WBC 5.5 RBC 2.47 L Hgb 7.2 L Hct 23.7 L MCV 96.0 MCH 29.1 MCHC 30.4 L RDW 14.6 H Plt Count 191 MPV 11.7 H Sodium 139 Potassium 4.6 Chloride 107 Carbon Dioxide 21 L Anion Gap 11 BUN > 120 H* Creatinine 10.50 H Estim Creat Clear Calc 7 Estimated GFR 5 L Glucose 124 H POC Capillary Glucose 267 H 362 H Calcium 8.6 Phosphorus 8.2 H Iron 39 L TIBC 217 L % Saturation 18 L Ferritin 138.00 Albumin 3.1 L Vitamin B12 > 1000.0 H Vitamin D 25-Hydroxy 37.5 Folate 14.5 PTH Intact 325.2 H Hep B Core Total Ab Cancelled 09/15/25 09/15/25 07:24 11:30 WBC RBC Hgb Hct MCV MCH MCHC RDW Plt Count MPV Sodium Potassium Chloride Carbon Dioxide Anion Gap BUN Creatinine Estim Creat Clear Calc Estimated GFR Glucose POC Capillary Glucose 130 H 178 H Calcium Phosphorus Iron TIBC % Saturation Ferritin Albumin Vitamin B12 Vitamin D 25-Hydroxy Folate PTH Intact Hep B Core Total Ab
--- NOTE | 2025-09-15 15:11 | P.PNIM_ITS ---
Progress Note: A&P Assessment and Plan (1) Kidney failure: Qualifiers: Acute renal failure type: unspecified Chronic kidney disease stage: stage 5 (GFR < 15), not on chronic dialysis Renal failure chronicity: acute on chronic Qualified Code(s): N17.9 - Acute kidney failure, unspecified; N18.5 - Chronic kidney disease, stage 5 Code(s): N19 - Unspecified kidney failure Status: Acute Assessment and Plan: Acute on chronic. Patient presents with lower extremity edema onset 2 days ago. Cr 10.25 on admission (baseline Cr: 7-8) Renal ultrasound shows medical renal disease, no hydronephrosis, small amount of ascites and diffuse bladder wall thickening UA: 2+ protein, 1+ glucose. No concern for infection Nephrology consulted. Old records requested. Lasix changed to Bumex. Cr up to 10.5 and BUN >120. Still mentating well and no cardiac rub appreciated Continue IV diuretics. Monitor urine output, electrolytes and renal function. (2) Urinary retention: Code(s): R33.9 - Retention of urine, unspecified Status: Acute Assessment and Plan: Urine retention noted in ED. Patient is on tamsulosin and finasteride but has not been taking recently as he has had an unable to obtain it. Several unsuccessful attempts to catheterize patient in ED. Patient was eventually able to void. Urology consulted and coude catheter was able to be placed. Monitor urine output. He mentions that he has been off his tamsulosin and finasteride Continue tamsulosin and finasteride. Voiding trial toward the end of his hospitalization. (3) Elevated troponin: Code(s): R79.89 - Other specified abnormal findings of blood chemistry Status: Acute Assessment and Plan: Troponin elevated to 0.093 before trending down. Patient denies SOB, chest pain, arm pain, jaw pain. Elevated troponin likely secondary to renal failure and junctional rhythm. Cardiology following. Appreciate their input. (4) Lower extremity edema: Code(s): R60.0 - Localized edema Status: Acute Assessment and Plan: Patient presents with 2 days of lower extremity edema. Echo showing EF 40-45% with moderate-severe aortic stenosis and moderate-severe biatrial dilation with mild MR. Diastolic function is indeterminate. Edema likely related to renal failure but cannot exclude CHF. Continue diuretics. 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 Telemetry consistent with junctional rhythm. Patient is not on anticoagulation. Holding carvedilol; avoid AVN blocking drugs Monitor on tele (6) Bradycardia: Code(s): R00.1 - Bradycardia, unspecified Status: Acute Assessment and Plan: EKG showed atrial fibrillation with slow ventricular response. Telemetry showing junctional rhythm. Carvedilol has been held. Cardiology has been consulted. Follow on telemetry. 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 The patient's blood glucose was reviewed on 09/15 Home medication: Tresiba, mounjaro, lispro. Holding home meds Glucose more elevated now Continue AccuCheks covering with sliding scale. Hypoglycemia protocol available as needed. Add Lantus tonight. (8) CHF (congestive heart failure): Code(s): I50.9 - Heart failure, unspecified Status: Chronic Assessment and Plan: Echo showing EF 40-45% with moderate-severe aortic stenosis and moderate-severe biatrial dilation with mild MR. Diastolic function is indeterminate. Baseline LV function unknown. Cardiology following. No empagliflozin, carvedilol, Entresto, spironolactone due to above. Manage with diuretics for now. Plan Diet: Renal DVT prophylaxis: Heparin subcutaneous Code status: Full Subjective Date/time seen: 09/15/25 15:11 Interval history: 6yo male with DM 2, HTN, CKD, hyperlipidemia presents to the ED on 09/13/2025 with complaints of bilateral lower extremity edema onset 2 days ago. He feels well today. No chest pain or shortness of breath. Denies dyspnea on exertion. Weaver catheter able to be placed by Urology. He does not feel lightheaded when he stands. He states the edema is improving. Exam Narrative: AF 98.3 152/62 38 20 93% ra Gen - NARD Chest - CTA bilaterally, nml RR CV - bradycardic. Tele showing junctional rhythm versus sinus bradycardia Abd -soft. Nontender. Nondistended. Positive bowel sounds. Ext -improved lower extremity edema. Psych - Nml mood and affect Skin - Warm and dry Objective Data Vital Signs Vital Signs: Vital Signs - 24 hr 09/14/25 15:40 09/14/25 16:00 09/14/25 16:00 Temperature 97.6 F Pulse Rate 40 L 40 L 40 L Respiratory Rate 17 17 Blood Pressure 138/55 L Pulse Oximetry 100 100 Oxygen Delivery Room Air 09/14/25 18:00 09/14/25 20:00 09/14/25 20:00 Temperature 97.8 F Pulse Rate 90 39 L 37 L Respiratory Rate 16 Blood Pressure 144/57 H Pulse Oximetry 98 Oxygen Delivery 09/14/25 21:03 09/14/25 22:00 09/14/25 23:23 Temperature Pulse Rate 39 L 38 L 39 L Respiratory Rate 16 15 Blood Pressure Pulse Oximetry 98 96 Oxygen Delivery Room Air Room Air 09/15/25 00:00 09/15/25 00:00 09/15/25 02:00 Temperature 97.7 F Pulse Rate 39 L 37 L 38 L Respiratory Rate 15 Blood Pressure 151/47 H Pulse Oximetry 96 Oxygen Delivery 09/15/25 03:56 09/15/25 04:00 09/15/25 04:00 Temperature 98.3 F Pulse Rate 39 L 39 L 40 L Respiratory Rate 15 15 Blood Pressure 145/59 H Pulse Oximetry 98 98 Oxygen Delivery Room Air 09/15/25 06:00 09/15/25 07:53 09/15/25 08:00 Temperature 97.8 F Pulse Rate 38 L 40 L 40 L Respiratory Rate 20 Blood Pressure 150/61 H Pulse Oximetry 97 Oxygen Delivery 09/15/25 08:00 09/15/25 10:00 09/15/25 11:47 Temperature 98.3 F Pulse Rate 40 L 38 L 39 L Respiratory Rate 20 Blood Pressure 152/62 H Pulse Oximetry 93 Oxygen Delivery Room Air 09/15/25 12:00 09/15/25 12:00 09/15/25 14:00 Temperature Pulse Rate 42 L 38 L Respiratory Rate Blood Pressure Pulse Oximetry Oxygen Delivery Room Air Intake/Output Intake/Output: Intake & Output 09/12/25 09/13/25 09/14/25 09/15/25 23:59 23:59 23:59 23:59 Intake Total 920 2220 950 Output Total 1200 1400 900 Balance -280 820 50 Meds/Results Medications: Active Medications Generic Name Dose Route Start Last Admin Trade Name Freq PRN Reason Stop Dose Admin Acetaminophen 650 mg 09/13/25 10:03 Acetaminophen 325 Mg Tablet PO Q4H PRN Mild Pain (1-3) or Fever Amlodipine Besylate 5 mg 09/14/25 09:00 09/15/25 08:47 Amlodipine Besylate 5 Mg Tablet PO 5 mg DAILY SHELDON Administration Aspirin 81 mg 09/14/25 08:00 09/15/25 08:46 Aspirin 81 Mg Chewable Tablet PO 81 mg DAILY@0800 SHELDON Administration Bumetanide 2 mg 09/15/25 09:00 09/15/25 08:55 Bumetanide Inj 1 Mg/4 Ml Vial IV PUSH 2 mg BID SHELDON Administration Calcitriol 0.25 mcg 09/14/25 09:00 09/15/25 08:47 Calcitriol 0.25 Mcg Capsule PO 0.25 mcg DAILY SHELDON Administration Dextrose 12.5 gm 09/14/25 20:55 Dextrose 50% 25 Gm/50 Ml Syringe IV PUSH PRN PRN Hypoglycemia Protocol Epoetin Amilcar-epbx 10,000 units 09/15/25 09:00 09/15/25 08:57 Epoetin Amilcar-Epbx 10,000 Units/Ml Vial SUB-Q 10,000 units TUTHSA@09 SHELDON Administration Finasteride 5 mg 09/14/25 09:00 09/15/25 08:47 Finasteride 5 Mg Tablet PO 5 mg DAILY SHELDON Administration Glucagon 1 mg 09/14/25 20:55 Glucagon For Inj 1 Mg Vial IM PRN PRN Hypoglycemia Protocol Glucose 15 gm 09/14/25 20:55 Glucose Oral Gel 15 Gm Of Glucse In 37.5 Gm Tube PO PRN PRN Hypoglycemia Protocol Heparin Sodium (Porcine) 5,000 units 09/13/25 22:00 09/15/25 13:15 Heparin Sodium 5,000 Units/Ml Vial SUB-Q 5,000 units Q8HR SHELDON Administration Dextrose 1,000 mls @ 100 mls/hr 09/14/25 20:55 Dextrose 5% 1,000 Ml IVPB PRN PRN Hypoglycemia Protocol Iron Sucrose 200 mg/ Sodium 110 mls @ 220 mls/hr 09/16/25 09:00 Chloride IVPB 09/20/25 09:29 QAM SHELDON Insulin Aspart 3 - 6 units 09/15/25 08:00 09/15/25 13:12 Insulin Aspart (*Bkc) 100 Units/Ml SUB-Q Not Given TIDWM SHELDON Protocol Perflutren Lipid Microsphere 0 ml 09/13/25 13:59 Perflutren Lipid Microspheres 1.5 Ml Vial Diluted To 10 Ml Total Volume IV PUSH 09/16/25 13:59 ONCE PRN adequate visualization Protocol Tamsulosin HCl 0.4 mg 09/13/25 14:10 09/15/25 08:46 Tamsulosin Hcl 0.4 Mg Capsule PO 0.4 mg DAILY SHELDON Administration Radiology Results: ITS Impressions Chest X-Ray 09/13/25 09:02 IMPRESSION: 1. Small left pleural effusion. 2. Borderline heart size. Renal Ultrasound 09/14/25 08:30 IMPRESSION: 1. Bilateral diffuse increased renal cortical echogenicity consistent with medical renal disease. No hydronephrosis. 2. Small amount of ascites in the left and right upper quadrant. 3. Mild diffuse bladder wall thickening, likely related to chronic outlet obstruction from the enlarged prostate. Labs Labs: Laboratory Results - last 24 hr 09/14/25 09/14/25 09/15/25 16:23 19:56 03:48 WBC 5.5 RBC 2.47 L Hgb 7.2 L Hct 23.7 L MCV 96.0 MCH 29.1 MCHC 30.4 L RDW 14.6 H Plt Count 191 MPV 11.7 H Sodium 139 Potassium 4.6 Chloride 107 Carbon Dioxide 21 L Anion Gap 11 BUN > 120 H* Creatinine 10.50 H Estim Creat Clear Calc 7 Estimated GFR 5 L Glucose 124 H POC Capillary Glucose 267 H 362 H Calcium 8.6 Phosphorus 8.2 H Iron 39 L TIBC 217 L % Saturation 18 L Ferritin 138.00 Albumin 3.1 L Vitamin B12 > 1000.0 H Vitamin D 25-Hydroxy 37.5 Folate 14.5 PTH Intact 325.2 H Hep B Core Total Ab Cancelled 09/15/25 09/15/25 07:24 11:30 WBC RBC Hgb Hct MCV MCH MCHC RDW Plt Count MPV Sodium Potassium Chloride Carbon Dioxide Anion Gap BUN Creatinine Estim Creat Clear Calc Estimated GFR Glucose POC Capillary Glucose 130 H 178 H Calcium Phosphorus Iron TIBC % Saturation Ferritin Albumin Vitamin B12 Vitamin D 25-Hydroxy Folate PTH Intact Hep B Core Total Ab
[2025-09-15 16:17] LABS: Total Protein Urine Random 145 mg/dL; Ur Ttl Prot Creatinine Ratio 2.45 mg/mg (0-0.20)
--- NOTE | 2025-09-15 17:45 | ECG_ITS ---
Test Date: 2025-09-15 17:55:50 Measurements Intervals [place] Rate: 39 P: 0 ME: 0 QRS: -3 QRSD: 95 T: 91 QT: 480 QTc: 389 Interpretive Statements SUPRAVENTRICULAR BRADYCARDIA SEPTAL MYOCARDIAL INFARCTION [40+ ms Q WAVE IN V1/V2], PROBABLY OLD Electronically Signed On 09-15-2025 22:55:58 VEHICLE DAMAGE APPRAISER by Barb Zabala M.D.
[2025-09-15] MEDS: INSULIN ASPART (*BKC) 100 UNITS/ML SUB-Q (17:47)
[2025-09-15] MEDS: INSULIN GLARGINE (*BKC) 100 UNITS/ML 7 UNITS SUB-Q (20:51)
[2025-09-16] VITALS (16 sets, daily range): BP systolic 108–160; BP diastolic 52–63; PULSE 37–46; RESP 16–24; TEMP 36.1–36.8; O2SAT 94–100
[2025-09-16 04:21] LABS: Hematocrit 23.7 % (42.0-52.0); Hemoglobin 7.1 g/dL (14.0-18.0); Mean Corpuscular HGB Conc 30.0 g/dl (32-36); Mean Corpuscular Hemoglobin 28.4 pg (26-34); Mean Corpuscular Volume 94.8 fl (80-100); Platelet Count Result 185 k/mm3 (150-375); Red Blood Count 2.50 M/mm3 (4.6-6.20); White Blood Count 5.3 K/mm3 (4.5-10.0)
--- NOTE | 2025-09-16 04:22 | ECG_ITS ---
Test Date: 2025-09-16 04:29:58 Measurements Intervals [place] Rate: 39 P: 0 ID: 0 QRS: -3 QRSD: 106 T: 98 QT: 501 QTc: 407 Interpretive Statements SUPRAVENTRICULAR BRADYCARDIA MODERATE INTRAVENTRICULAR CONDUCTION DELAY [105+ ms QRS DURATION, 80+ ms Q/S IN V1/V2, NO Q AND 60+ ms R IN I/aVL/V5/V6] NONSPECIFIC T-WAVE ABNORMALITY Electronically Signed On 09-16-2025 06:20:20 INTEGRATED CIRCUITS INSPECTOR by Barb Zabala M.D.
[2025-09-16 05:01] LABS: Albumin Level 3.0 g/dL (3.5-5.1); Anion Gap 10 mmol/L (4-12); Blood Urea Nitrogen 121 mg/dL (9-20); Calcium 8.7 mg/dL (8.4-10.2); Carbon Dioxide 20 mmol/L (22-30); Chloride 106 mmol/L (98-107); Estimated CRCL calculation 6 ml/min; Estimated Glomerular Filt Rate 5; Glucose 106 mg/dL (65-110); Magnesium 2.2 mg/dL (1.6-2.3); Potassium 4.6 mmol/L (3.4-5.0); Sodium 136 mmol/L (137-145)
[2025-09-16 07:08] LABS: Hep B Core Ab, Total Positive (Negative)
[2025-09-16] MEDS: BUMETANIDE INJ 1 MG/4 ML VIAL 2 MG IV PUSH ×2 (08:09→16:15)
[2025-09-16] MEDS: FINASTERIDE 5 MG TABLET PO (08:10)
[2025-09-16] MEDS: TAMSULOSIN HCL 0.4 MG CAPSULE PO (08:10)
[2025-09-16] MEDS: ASPIRIN 81 MG CHEWABLE TABLET PO (08:10)
[2025-09-16] MEDS: IRON SUCROSE COMPLEX 200 MG in SODIUM CHLORIDE 0.9% IV 100 ML 220 MG IVPB (08:16)
--- NOTE | 2025-09-16 11:06 | P.PNNP_ITS ---
Progress Note: A&P Assessment and Plan (1) Stage 5 chronic kidney disease: Code(s): N18.5 - Chronic kidney disease, stage 5 Status: Chronic Assessment and Plan: * known advanced disease at baseline * baseline creatinine running ~ 8.5 - 9.5mg/dL for the last year * BUNs have been running ~ 120 - 140mg/dL in that same time frame * thought to be secondary to diabetic nephropathy * associated with proteinuria, hyperkalemia, anemia, and hyperphosphotemia * on Veltassa and renvela for control of K+ and Phos * Aranesp ordered for anemia (but unclear if getting/taking) * follows with Dr. Elia Torres for ongoing CKD management * has been quite resistant to dialysis initiation due to his travel schedule/work (works in [place]) * patient still refuses to start dialysis. * Not much more to offer from the renal standpoint. He will be seeing Dr. Torres after discharge (2) Azotemia: Code(s): R79.89 - Other specified abnormal findings of blood chemistry Status: Chronic Assessment and Plan: * baseline blood urea nitrogen readings running ~ 120 - 140mg/dL in the last year * presumably due to progressive decline in kidney function * however, necessity of diuretic therapy likely playing a role * furthermore, cannot discount possible GI blood loss given his anemia (3) Lower extremity edema: Code(s): R60.0 - Localized edema Status: Acute Assessment and Plan: * likely a manifestation of advanced CKD in association with proteinuria * initiated on IV diuretics * given his advaned CKD, unclear how effective diuretics will be * more concerning, this intervention could push/worsen his underlying CKD (4) Atrial fibrillation with slow ventricular response: Code(s): I48.91 - Unspecified atrial fibrillation Status: Chronic Assessment and Plan: * as noted by admission EKG * holding carvedilo and avoiding AVN blocking drugs * follow telemetry * not on anticoagulation at this time * Echo Shows an EF of 40-45, and amazingly a normal pericardium. * Cardiology following (5) Bradycardia: Code(s): R00.1 - Bradycardia, unspecified Status: Acute Assessment and Plan: * also noted on admission * see #4 * Cardiology following (6) Anemia: Code(s): D64.9 - Anemia, unspecified Status: Chronic Assessment and Plan: * due to advanced CKD * follow trend of H/H * He is on Epogen * T sat only 18. B12 and folate are okay. Will give Venofer (7) Hypertension: Code(s): I10 - Essential (primary) hypertension Status: Chronic Assessment and Plan: * systolic between 130 and 160. * resumed home medications * on amlodipine 5. Pulse rate in the 40s. Will add hydralazine and perhaps that will help the pulse rise a bit. (8) Diabetes: Qualifiers: Diabetes mellitus type: type 2 Diabetes mellitus residential insulin use: with residential use Diabetes mellitus complication status: with kidney complications Diabetes mellitus complication detail: with chronic kidney disease Chronic kidney disease stage: stage 5 (GFR < 15), not on chronic dialysis Qualified Code(s): E11.22 - Type 2 diabetes mellitus with diabetic chronic kidney disease; N18.5 - Chronic kidney disease, stage 5; Z79.4 - Long t erm (current) use of insulin Code(s): E11.9 - Type 2 diabetes mellitus without complications Status: Acute Assessment and Plan: * follow accu-cheks * glycemic control per hospitalist Subjective Date/time seen: 09/16/25 11:06 Interval history: Patient is alert. Resting comfortably in bed. No complaint Exam Narrative: General: WD/WN male in NAD Heart: bradycardia normal S1 and S2; no cardiac rub Lungs: clear bilaterally Abdomen: soft, nontender, nondistended, positive bowel sounds Extremities: 1- 2+ edema Skin: warm and dry no rash Objective Data Vital Signs Vital Signs: Vital Signs - 24 hr 09/15/25 11:47 09/15/25 12:00 09/15/25 12:00 Temperature 98.3 F Pulse Rate 39 L 42 L Respiratory Rate 20 Blood Pressure 152/62 H Pulse Oximetry 93 Oxygen Delivery Room Air 09/15/25 14:00 09/15/25 16:00 09/15/25 16:00 Temperature Pulse Rate 38 L 40 L Respiratory Rate Blood Pressure Pulse Oximetry Oxygen Delivery Room Air 09/15/25 16:00 09/15/25 18:00 09/15/25 19:38 Temperature 98.1 F 98 F Pulse Rate 48 L 40 L 41 L Respiratory Rate 16 16 Blood Pressure 139/96 H 142/55 H Pulse Oximetry 96 93 Oxygen Delivery 09/15/25 20:00 09/15/25 20:43 09/15/25 22:00 Temperature Pulse Rate 42 L 41 L 38 L Respiratory Rate 16 Blood Pressure Pulse Oximetry 93 Oxygen Delivery Room Air 09/15/25 23:13 09/16/25 00:00 09/16/25 00:00 Temperature 98.2 F Pulse Rate 39 L 37 L Respiratory Rate 18 Blood Pressure 154/59 H Pulse Oximetry 95 Oxygen Delivery Room Air 09/16/25 01:27 09/16/25 04:00 09/16/25 04:00 Temperature 98.2 F Pulse Rate 37 L 39 L 38 L Respiratory Rate 16 Blood Pressure 108/55 L Pulse Oximetry 97 Oxygen Delivery 09/16/25 04:05 09/16/25 05:53 09/16/25 07:47 Temperature 97.0 F L Pulse Rate 39 L 37 L 41 L Respiratory Rate 16 20 Blood Pressure 160/63 H Pulse Oximetry 97 97 Oxygen Delivery Room Air 09/16/25 08:00 09/16/25 08:00 Temperature Pulse Rate 40 L Respiratory Rate Blood Pressure Pulse Oximetry Oxygen Delivery Room Air Intake/Output Intake/Output: Intake & Output 09/13/25 09/14/25 09/15/25 09/16/25 23:59 23:59 23:59 23:59 Intake Total 920 2220 1690 490 Output Total 1200 1400 1650 850 Balance -280 820 40 -360 Meds/Results Medications: Active Medications Generic Name Dose Route Start Last Admin Trade Name Indioq PRN Reason Stop Dose Admin Acetaminophen 650 mg 09/13/25 10:03 Acetaminophen 325 Mg Tablet PO Q4H PRN Mild Pain (1-3) or Fever Amlodipine Besylate 5 mg 09/14/25 09:00 09/16/25 08:10 Amlodipine Besylate 5 Mg Tablet PO 5 mg DAILY SHELDON Administration Aspirin 81 mg 09/14/25 08:00 09/16/25 08:10 Aspirin 81 Mg Chewable Tablet PO 81 mg DAILY@0800 SHELDON Administration Bumetanide 2 mg 09/15/25 09:00 09/16/25 08:09 Bumetanide Inj 1 Mg/4 Ml Vial IV PUSH 2 mg BID SHELDON Administration Calcitriol 0.25 mcg 09/14/25 09:00 09/16/25 08:10 Calcitriol 0.25 Mcg Capsule PO 0.25 mcg DAILY SHELDON Administration Dextrose 12.5 gm 11/21/25 20:55 Dextrose 50% 25 Gm/50 Ml Syringe IV PUSH PRN PRN Hypoglycemia Protocol Epoetin Amilcar-epbx 10,000 units 09/15/25 09:00 09/15/25 08:57 Epoetin Amilcar-Epbx 10,000 Units/Ml Vial SUB-Q 10,000 units TUTHSA@09 SHELDON Administration Finasteride 5 mg 09/14/25 09:00 09/16/25 08:10 Finasteride 5 Mg Tablet PO 5 mg DAILY SHELDON Administration Glucagon 1 mg 09/14/25 20:55 Glucagon For Inj 1 Mg Vial IM PRN PRN Hypoglycemia Protocol Glucose 15 gm 09/14/25 20:55 Glucose Oral Gel 15 Gm Of Glucse In 37.5 Gm Tube PO PRN PRN Hypoglycemia Protocol Heparin Sodium (Porcine) 5,000 units 09/13/25 22:00 09/16/25 04:29 Heparin Sodium 5,000 Units/Ml Vial SUB-Q 5,000 units Q8HR SHELDON Administration Dextrose 1,000 mls @ 100 mls/hr 09/14/25 20:55 Dextrose 5% 1,000 Ml IVPB PRN PRN Hypoglycemia Protocol Iron Sucrose 200 mg/ Sodium 110 mls @ 220 mls/hr 09/16/25 09:00 09/16/25 08:16 Chloride IVPB 09/20/25 09:29 220 mls/hr QAM SHELDON Administration Insulin Aspart 3 - 6 units 09/15/25 08:00 09/16/25 08:11 Insulin Aspart (*Bkc) 100 Units/Ml SUB-Q Not Given TIDWM SHELDON Protocol Insulin Glargine 7 units 09/15/25 21:00 09/15/25 20:51 Insulin Glargine (*Bkc) 100 Units/Ml SUB-Q 7 units HS SHELDON Administration Perflutren Lipid Microsphere 0 ml 09/13/25 13:59 Perflutren Lipid Microspheres 1.5 Ml Vial Diluted To 10 Ml Total Volume IV PUSH 09/16/25 13:59 ONCE PRN adequate visualization Protocol Tamsulosin HCl 0.4 mg 09/13/25 14:10 09/16/25 08:10 Tamsulosin Hcl 0.4 Mg Capsule PO 0.4 mg DAILY SHELDON Administration Radiology Results: ITS Impressions Chest X-Ray 09/13/25 09:02 IMPRESSION: 1. Small left pleural effusion. 2. Borderline heart size. Renal Ultrasound 09/14/25 08:30 IMPRESSION: 1. Bilateral diffuse increased renal cortical echogenicity consistent with me dical renal disease. No hydronephrosis. 2. Small amount of ascites in the left and right upper quadrant. 3. Mild diffuse bladder wall thickening, likely related to chronic outlet obstruction from the enlarged prostate. Labs Labs: Laboratory Results - last 24 hr 09/15/25 09/15/25 09/15/25 03:42 11:30 15:56 WBC RBC Hgb Hct MCV MCH MCHC RDW Plt Count MPV Sodium Potassium Chloride Carbon Dioxide Anion Gap BUN Creatinine Estim Creat Clear Calc Estimated GFR Glucose POC Capillary Glucose 178 H Calcium Phosphorus Magnesium Albumin U Random Total Protein 145 Urine Creatinine 59.1 Protein/Creat Ratio 2 2.45 H Hep B Core Total Ab Positive A 09/15/25 09/15/25 09/16/25 16:13 19:40 03:46 WBC 5.3 RBC 2.50 L Hgb 7.1 L Hct 23.7 L MCV 94.8 MCH 28.4 MCHC 30.0 L RDW 14.7 H Plt Count 185 MPV 11.4 H Sodium 136 L Potassium 4.6 Chloride 106 Carbon Dioxide 20 L Anion Gap 10 BUN 121 H* Creatinine 10.60 H Estim Creat Clear Calc 6 Estimated GFR 5 L Glucose 106 POC Capillary Glucose 212 H 247 H Calcium 8.7 Phosphorus 8.1 H Magnesium 2.2 Albumin 3.0 L U Random Total Protein Urine Creatinine Protein/Creat Ratio 2 Hep B Core Total Ab 09/16/25 07:29 WBC RBC Hgb Hct MCV MCH MCHC RDW Plt Count MPV Sodium Potassium Chloride Carbon Dioxide Anion Gap BUN Creatinine Estim Creat Clear Calc Estimated GFR Glucose POC Capillary Glucose 75 Calcium Phosphorus Magnesium Albumin U Random Total Protein Urine Creatinine Protein/Creat Ratio 2 Hep B Core Total Ab
--- NOTE | 2025-09-16 12:17 | PM.PNCARD ---
Progress Note: A&P Assessment and Plan (1) Atrial fibrillation with slow ventricular response: Code(s): I48.91 - Unspecified atrial fibrillation Status: Chronic Plan Persistent atrial fibrillation with slow ventricular response and junctional escape rhythm AV kevin dysfunction CKD stage 4 Mild left ventricular systolic dysfunction ejection fraction 45% Moderate to severe aortic stenosis Hypertension controlled Diabetes mellitus type 2 plan Avoid AV kevin blocking agent Continue amlodipine D/C coreg Start oral anticoagulation Eliquis 5 mg b.i.d. (patient refused) Event on discharge (patient refused) Patient not a candidate for ROBERTA-inhibitor or ARB because of kidney function Subjective Date/time seen: 09/16/25 12:17 Interval history: follow up for A fib tele: AFib slow V response junctional escape rhythm No acute events overnight Review of Systems Review of Systems: All systems reviewed & are unremarkable except as noted in HPI and below Exam Const: General: comfortable and no acute distress HENMT: Mouth: Yes moist mucous membranes Eyes: Sclera: sclerae normal Neck: Neck: supple Resp: Effort & Inspection: normal respiratory effort Auscultation: clear to auscultation bilaterally Cardio: Rate: bradycardic Rhythm: regular rhythm Other: ejection systolic murmur GI: GI Palp: Yes Soft to palpation Auscultation: normal bowel sounds Skin: General skin exam: normal color Neuro: Other: Alert and oriented Extrem: Other: Significant edema Objective Data Vital Signs Vital Signs: Vital Signs - 24 hr 09/15/25 14:00 09/15/25 16:00 09/15/25 16:00 Temperature Pulse Rate 38 L 40 L Respiratory Rate Blood Pressure Pulse Oximetry Oxygen Delivery Room Air 09/15/25 16:00 09/15/25 18:00 09/15/25 19:38 Temperature 36.7 C 36.6 C Pulse Rate 48 L 40 L 41 L Respiratory Rate 16 16 Blood Pressure 139/96 H 142/55 H Pulse Oximetry 96 93 Oxygen Delivery 09/15/25 20:00 09/15/25 20:43 09/15/25 22:00 Temperature Pulse Rate 42 L 41 L 38 L Respiratory Rate 16 Blood Pressure Pulse Oximetry 93 Oxygen Delivery Room Air 09/15/25 23:13 09/16/25 00:00 09/16/25 00:00 Temperature 36.8 C Pulse Rate 39 L 37 L Respiratory Rate 18 Blood Pressure 154/59 H Pulse Oximetry 95 Oxygen Delivery Room Air 09/16/25 01:27 09/16/25 04:00 09/16/25 04:00 Temperature 36.8 C Pulse Rate 37 L 39 L 38 L Respiratory Rate 16 Blood Pressure 108/55 L Pulse Oximetry 97 Oxygen Delivery 09/16/25 04:05 09/16/25 05:53 09/16/25 07:47 Temperature 36.1 C L Pulse Rate 39 L 37 L 41 L Respiratory Rate 16 20 Blood Pressure 160/63 H Pulse Oximetry 97 97 Oxygen Delivery Room Air 09/16/25 08:00 09/16/25 08:00 09/16/25 11:57 Temperature 36.8 C Pulse Rate 40 L 39 L Respiratory Rate 24 H Blood Pressure 154/54 H Pulse Oximetry 94 Oxygen Delivery Room Air Intake/Output Intake/Output: Intake & Output 09/13/25 09/14/25 09/15/25 09/16/25 23:59 23:59 23:59 23:59 Intake Total 920 2220 1690 600 Output Total 1200 1400 1650 850 Balance -280 820 40 -250 Meds/Results Medications: Active Medications Generic Name Dose Route Start Last Admin Trade Name Freq PRN Reason Stop Dose Admin Acetaminophen 650 mg 09/13/25 10:03 Acetaminophen 325 Mg Tablet PO Q4H PRN Mild Pain (1-3) or Fever Amlodipine Besylate 5 mg 09/14/25 09:00 09/16/25 08:10 Amlodipine Besylate 5 Mg Tablet PO 5 mg DAILY SHELDON Administration Aspirin 81 mg 09/14/25 08:00 09/16/25 08:10 Aspirin 81 Mg Chewable Tablet PO 81 mg DAILY@0800 SHELDON Administration Bumetanide 2 mg 09/15/25 09:00 09/16/25 08:09 Bumetanide Inj 1 Mg/4 Ml Vial IV PUSH 2 mg BID SHELDON Administration Calcitriol 0.25 mcg 09/14/25 09:00 09/16/25 08:10 Calcitriol 0.25 Mcg Capsule PO 0.25 mcg DAILY SHELDON Administration Dextrose 12.5 gm 09/14/25 20:55 Dextrose 50% 25 Gm/50 Ml Syringe IV PUSH PRN PRN Hypoglycemia Protocol Epoetin Amilcar-epbx 10,000 units 09/15/25 09:00 09/15/25 08:57 Epoetin Amilcar-Epbx 10,000 Units/Ml Vial SUB-Q 10,000 units TUTHSA@09 SHELDON Administration Finasteride 5 mg 09/14/25 09:00 09/16/25 08:10 Finasteride 5 Mg Tablet PO 5 mg DAILY SHELDON Administration Glucagon 1 mg 09/14/25 20:55 Glucagon For Inj 1 Mg Vial IM PRN PRN Hypoglycemia Protocol Glucose 15 gm 09/14/25 20:55 Glucose Oral Gel 15 Gm Of Glucse In 37.5 Gm Tube PO PRN PRN Hypoglycemia Protocol Heparin Sodium (Porcine) 5,000 units 09/13/25 22:00 09/16/25 04:29 Heparin Sodium 5,000 Units/Ml Vial SUB-Q 5,000 units Q8HR SHELDON Administration Hydralazine HCl 10 mg 09/16/25 11:10 09/16/25 11:40 Hydralazine 10 Mg Tablet PO 10 mg Q8HR SHELDON Administration Dextrose 1,000 mls @ 100 mls/hr 09/14/25 20:55 Dextrose 5% 1,000 Ml IVPB PRN PRN Hypoglycemia Protocol Iron Sucrose 200 mg/ Sodium 110 mls @ 220 mls/hr 09/16/25 09:00 09/16/25 11:13 Chloride IVPB 09/20/25 09:29 Infused QAM SHELDON Infusion Insulin Aspart 3 - 6 units 09/15/25 08:00 09/16/25 08:11 Insulin Aspart (*Bkc) 100 Units/Ml SUB-Q Not Given TIDWM [facility] Protocol Insulin Glargine 7 units 09/15/25 21:00 09/15/25 20:51 Insulin Glargine (*Bkc) 100 Units/Ml SUB-Q 7 units HS SHELDON Administration Perflutren Lipid Microsphere 0 ml 09/13/25 13:59 Perflutren Lipid Microspheres 1.5 Ml Vial Diluted To 10 Ml Total Volume IV PUSH 09/16/25 13:59 ONCE PRN adequate visualization Protocol Tamsulosin HCl 0.4 mg 09/13/25 14:10 09/16/25 08:10 Tamsulosin Hcl 0.4 Mg Capsule PO 0.4 mg DAILY SHELDON Administration Radiology Results: ITS Impressions Chest X-Ray 09/13/25 09:02 IMPRESSION: 1. Small left pleural effusion. 2. Borderline heart size. Renal Ultrasound 09/14/25 08:30 IMPRESSION: 1. Bilateral diffuse increased renal cortical echogenicity consistent with medical renal disease. No hydronephrosis. 2. Small amount of ascites in the left and right upper quadrant. 3. Mild diffuse bladder wall thickening, likely related to chronic outlet obstruction from the enlarged prostate. Labs Labs: Laboratory Results - last 24 hr 09/15/25 09/15/25 09/15/25 03:42 15:56 16:13 WBC RBC Hgb Hct MCV MCH MCHC RDW Plt Count MPV Sodium Potassium Chloride Carbon Dioxide Anion Gap BUN Creatinine Estim Creat Clear Calc Estimated GFR Glucose POC Capillary Glucose 212 H Calcium Phosphorus Magnesium Albumin U Random Total Protein 145 Urine Creatinine 59.1 Protein/Creat Ratio 2 2.45 H Hep B Core Total Ab Positive A 09/15/25 09/16/25 09/16/25 19:40 03:46 07:29 WBC 5.3 RBC 2.50 L Hgb 7.1 L Hct 23.7 L MCV 94.8 MCH 28.4 MCHC 30.0 L RDW 14.7 H Plt Count 185 MPV 11.4 H Sodium 136 L Potassium 4.6 Chloride 106 Carbon Dioxide 20 L Anion Gap 10 BUN 121 H* Creatinine 10.60 H Estim Creat Clear Calc 6 Estimated GFR 5 L Glucose 106 POC Capillary Glucose 247 H 75 Calcium 8.7 Phosphorus 8.1 H Magnesium 2.2 Albumin 3.0 L U Random Total Protein Urine Creatinine Protein/Creat Ratio 2 Hep B Core Total Ab 09/16/25 11:10 WBC RBC Hgb Hct MCV MCH MCHC RDW Plt Count MPV Sodium Potassium Chloride Carbon Dioxide Anion Gap BUN Creatinine Estim Creat Clear Calc Estimated GFR Glucose POC Capillary Glucose 120 H Calcium Phosphorus Magnesium Albumin U Random Total Protein Urine Creatinine Protein/Creat Ratio 2 Hep B Core Total Ab
--- NOTE | 2025-09-16 13:36 | PC.NURSE ---
at 1331 this nurse saw the patients heart rate was 177. this nurse checked on the patient who was up and walking around. patient stated he was fine and that he did not understand why he had to sit down or go to the bed. this nurse explained to the patient that his heart rate was elevated. patient did sit down and the heart rate is now 39. patient stated he is frustrated and he threw the chair alarm when asked to use it. patient again educated on the importance of calling when he needs assistance and the importance of the chair alarm. patient declined the chair alarm. Further education is needed and the patient does not verbalize understanding at this time.
--- NOTE | 2025-09-16 17:13 | P.PNIM_ITS ---
Progress Note: A&P Assessment and Plan (1) Kidney failure: Qualifiers: Acute renal failure type: unspecified Chronic kidney disease stage: stage 5 (GFR < 15), not on chronic dialysis Renal failure chronicity: acute on chronic Qualified Code(s): N17.9 - Acute kidney failure, unspecified; N18.5 - Chronic kidney disease, stage 5 Code(s): N19 - Unspecified kidney failure Status: Acute Assessment and Plan: Acute on chronic kidney failure. Patient presents with lower extremity edema onset 2 days ago. Cr 10.25 on admission (baseline Cr: 7-8) Renal ultrasound shows medical renal disease, no hydronephrosis, small amount of ascites and diffuse bladder wall thickening UA: 2+ protein, 1+ glucose. No concern for infection Nephrology consulted. Lasix changed to Bumex. Cr stable in the 10 range with BUN >120. UOP 1650mL. Still mentating well and no cardiac rub appreciated Continue IV diuretics. Monitor urine output, electrolytes and renal function. (2) Urinary retention: Code(s): R33.9 - Retention of urine, unspecified Status: Acute Assessment and Plan: Urine retention noted in ED. Patient is supposed to be on tamsulosin and finasteride but has not been taking recently as he has had an unable to obtain it. Several unsuccessful attempts to catheterize patient in ED. Patient was eventually able to void. Urology consulted and coude catheter was able to be placed. Monitor urine output. Continue tamsulosin and finasteride. Plan home with Weaver (3) Elevated troponin: Code(s): R79.89 - Other specified abnormal findings of blood chemistry Status: Acute Assessment and Plan: Troponin elevated to 0.093 before trending down. Patient denies SOB, chest pain, arm pain, jaw pain. Elevated troponin likely secondary to renal failure and junctional rhythm. Cardiology following. Appreciate their input. (4) Lower extremity edema: Code(s): R60.0 - Localized edema Status: Acute Assessment and Plan: Patient presents with 2 days of lower extremity edema. Echo showing EF 40-45% with moderate-severe aortic stenosis and moderate-severe biatrial dilation with mild MR. Diastolic function is indeterminate. Edema likely related to renal failure but cannot exclude CHF. Continue diuretics. 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 Telemetry consistent with junctional rhythm. Patient is not on anticoagulation. patient refused Eliquis Holding carvedilol; avoid AVN blocking drugs Monitor on tele (6) Bradycardia: Code(s): R00.1 - Bradycardia, unspecified Status: Acute Assessment and Plan: EKG showed atrial fibrillation with slow ventricular response. Telemetry showing junctional rhythm. Carvedilol has been stopped Cardiology has been consulted. Follow on telemetry. Event monitor recommended at discharge but patient refused this as well. (7) Diabetes: Qualifiers: Chronic kidney disease stage: stage 5 (GFR < 15), not on chronic dialysis Diabetes mellitus complication detail: with chronic kidney disease Diabetes mellitus complication status: with kidney complications Diabetes mellitus fpc insulin use: with rat exterminator use Diabetes mellitus type: type 2 Qualified Code(s): E11.22 - Type 2 diabetes mellitus with diabetic chronic kidney disease; N18.5 - Chronic kidney disease, stage 5; Z79.4 - terminal worker (current) use of insulin Code(s): E11.9 - Type 2 diabetes mellitus without complications Status: Acute Assessment and Plan: A1c 6.6%. The patient's blood glucose was reviewed on 09/16 Home medication: Tresiba, Mounjaro, lispro. Holding home meds Glucose elevated so low dose Lantus started Glucose better controlled. Continue AccuCheks covering with sliding scale. Hypoglycemia protocol available as needed. (8) CHF (congestive heart failure): Code(s): I50.9 - Heart failure, unspecified Status: Chronic Assessment and Plan: Echo showing EF 40-45% with moderate-severe aortic stenosis and moderate-severe biatrial dilation with mild MR. Diastolic function is indeterminate. Baseline LV function unknown. Cardiology following. No empagliflozin, carvedilol, Entresto, spironolactone due to above. Hydralazine added. Consider adding Imdur. Continue diuretics (9) Hepatitis B core antibody positive: Code(s): R76.89 - Other specified abnormal immunological findings in serum Status: Acute Assessment and Plan: HepB Core total Ab positive. HepB surface Ag and surface Ab both negative. He admits to having hepatitis as a child but never treated Probably a resolved infection or false positive. Repeat HepB panel with PCR Plan Diet: Renal DVT prophylaxis: Heparin subcutaneous Code status: Full Disp: patient not out of bed much despite encouragement. PT/OT Subjective Date/time seen: 09/16/25 17:13 Interval history: 6yo male with DM 2, HTN, CKD, hyperlipidemia presents to the ED on 09/13/2025 with complaints of bilateral lower extremity edema onset 2 days ago. No issues overnight. Feels well. He is leaving tomorrow. No CP or SOB. Not up out of bed much Exam Narrative: AF 97.6 136/58 39 16 100% ra Gen - NARD Chest - CTA bilaterally, nml RR CV - bradycardic. Tele showing junctional rhythm Abd -soft. Nontender. Nondistended. No hepatomegaly - Weaver secured draining clear yellow urine Ext -improved lower extremity edema. Psych - Nml mood and affect Skin - Warm and dry Objective Data Vital Signs Vital Signs: Vital Signs - 24 hr 09/15/25 18:00 09/15/25 19:38 09/15/25 20:00 Temperature 98 F Pulse Rate 40 L 41 L 42 L Respiratory Rate 16 Blood Pressure 142/55 H Pulse Oximetry 93 Oxygen Delivery 09/15/25 20:43 09/15/25 22:00 09/15/25 23:13 Temperature Pulse Rate 41 L 38 L Respiratory Rate 16 Blood Pressure Pulse Oximetry 93 Oxygen Delivery Room Air Room Air 09/16/25 00:00 09/16/25 00:00 09/16/25 01:27 Temperature 98.2 F Pulse Rate 39 L 37 L 37 L Respiratory Rate 18 Blood Pressure 154/59 H Pulse Oximetry 95 Oxygen Delivery 09/16/25 04:00 09/16/25 04:00 09/16/25 04:05 Temperature 98.2 F Pulse Rate 39 L 38 L 39 L Respiratory Rate 16 16 Blood Pressure 108/55 L Pulse Oximetry 97 97 Oxygen Delivery Room Air 09/16/25 05:53 09/16/25 07:47 09/16/25 08:00 Temperature 97.0 F L Pulse Rate 37 L 41 L Respiratory Rate 20 Blood Pressure 160/63 H Pulse Oximetry 97 Oxygen Delivery Room Air 09/16/25 08:00 09/16/25 10:00 09/16/25 11:57 Temperature 98.3 F Pulse Rate 40 L 37 L 39 L Respiratory Rate 24 H Blood Pressure 154/54 H Pulse Oximetry 94 Oxygen Delivery 09/16/25 12:00 09/16/25 12:00 09/16/25 14:00 Temperature Pulse Rate 46 L 38 L Respiratory Rate Blood Pressure Pulse Oximetry Oxygen Delivery Room Air 09/16/25 16:00 09/16/25 16:00 09/16/25 16:00 Temperature 97.6 F Pulse Rate 38 L 39 L Respiratory Rate 16 Blood Pressure 136/58 L Pulse Oximetry 100 Oxygen Delivery Room Air Intake/Output Intake/Output: Intake & Output 09/13/25 09/14/25 09/15/25 09/16/25 23:59 23:59 23:59 23:59 Intake Total 920 2220 1690 1000 Output Total 1200 1400 1650 1600 Balance -280 820 40 -600 Meds/Results Medications: Active Medications Generic Name Dose Route Start Last Admin Trade Name Freq PRN Reason Stop Dose Admin Acetaminophen 650 mg 09/13/25 10:03 Acetaminophen 325 Mg Tablet PO Q4H PRN Mild Pain (1-3) or Fever Amlodipine Besylate 5 mg 09/14/25 09:00 09/16/25 08:10 Amlodipine Besylate 5 Mg Tablet PO 5 mg DAILY SHELDON Administration Aspirin 81 mg 09/14/25 08:00 09/16/25 08:10 Aspirin 81 Mg Chewable Tablet PO 81 mg DAILY@0800 SHELDON Administration Bumetanide 2 mg 09/15/25 09:00 09/16/25 16:15 Bumetanide Inj 1 Mg/4 Ml Vial IV PUSH 2 mg BID SHELDON Administration Calcitriol 0.25 mcg 09/14/25 09:00 09/16/25 08:10 Calcitriol 0.25 Mcg Capsule PO 0.25 mcg DAILY SHELDON Administration Dextrose 12.5 gm 09/14/25 20:55 Dextrose 50% 25 Gm/50 Ml Syringe IV PUSH PRN PRN Hypoglycemia Protocol Epoetin Amilcar-epbx 10,000 units 09/15/25 09:00 09/15/25 08:57 Epoetin Amilcar-Epbx 10,000 Units/Ml Vial SUB-Q 10,000 units TUTHSA@09 SHELDON Administration Finasteride 5 mg 09/14/25 09:00 09/16/25 08:10 Finasteride 5 Mg Tablet PO 5 mg DAILY SHELDON Administration Glucagon 1 mg 09/14/25 20:55 Glucagon For Inj 1 Mg Vial IM PRN PRN Hypoglycemia Protocol Glucose 15 gm 09/14/25 20:55 Glucose Oral Gel 15 Gm Of Glucse In 37.5 Gm Tube PO PRN PRN Hypoglycemia Protocol Heparin Sodium (Porcine) 5,000 units 09/13/25 22:00 09/16/25 15:08 Heparin Sodium 5,000 Units/Ml Vial SUB-Q 5,000 units Q8HR SHELDON Administration Hydralazine HCl 10 mg 09/16/25 11:10 09/16/25 11:40 Hydralazine 10 Mg Tablet PO 10 mg Q8HR SHELDON Administration Dextrose 1,000 mls @ 100 mls/hr 09/14/25 20:55 Dextrose 5% 1,000 Ml IVPB PRN PRN Hypoglycemia Protocol Iron Sucrose 200 mg/ Sodium 110 mls @ 220 mls/hr 09/16/25 09:00 09/16/25 11:13 Chloride IVPB 09/20/25 09:29 Infused QAM SHELDON Infusion Insulin Aspart 3 - 6 units 09/15/25 08:00 09/16/25 16:21 Insulin Aspart (*Bkc) 100 Units/Ml SUB-Q Not Given TIDWM SHELDON Protocol Insulin Glargine 7 units 09/15/25 21:00 09/15/25 20:51 Insulin Glargine (*Bkc) 100 Units/Ml SUB-Q 7 units HS SHELDON Administration Tamsulosin HCl 0.4 mg 09/13/25 14:10 09/16/25 08:10 Tamsulosin Hcl 0.4 Mg Capsule PO 0.4 mg DAILY SHELDON Administration Radiology Results: ITS Impressions Chest X-Ray 09/13/25 09:02 IMPRESSION: 1. Small left pleural effusion. 2. Borderline heart size. Renal Ultrasound 09/14/25 08:30 IMPRESSION: 1. Bilateral diffuse increased renal cortical echogenicity consistent with medical renal disease. No hydronephrosis. 2. Small amount of ascites in the left and right upper quadrant. 3. Mild diffuse bladder wall thickening, likely related to chronic outlet obstruction from the enlarged prostate. Labs Labs: Laboratory Results - last 24 hr 09/15/25 09/15/25 09/16/25 03:42 19:40 03:46 WBC 5.3 RBC 2.50 L Hgb 7.1 L Hct 23.7 L MCV 94.8 MCH 28.4 MCHC 30.0 L RDW 14.7 H Plt Count 185 MPV 11.4 H Sodium 136 L Potassium 4.6 Chloride 106 Carbon Dioxide 20 L Anion Gap 10 BUN 121 H* Creatinine 10.60 H Estim Creat Clear Calc 6 Estimated GFR 5 L Glucose 106 POC Capillary Glucose 247 H Calcium 8.7 Phosphorus 8.1 H Magnesium 2.2 Albumin 3.0 L Hep B Core Total Ab Positive A 09/16/25 09/16/25 09/16/25 07:29 11:10 15:51 WBC RBC Hgb Hct MCV MCH MCHC RDW Plt Count MPV Sodium Potassium Chloride Carbon Dioxide Anion Gap BUN Creatinine Estim Creat Clear Calc Estimated GFR Glucose POC Capillary Glucose 75 120 H 188 H Calcium Phosphorus Magnesium Albumin Hep B Core Total Ab
[2025-09-16 19:20] LABS: Blood Urea Nitrogen 118 mg/dL (9-20)
[2025-09-16] MEDS: INSULIN GLARGINE (*BKC) 100 UNITS/ML 7 UNITS SUB-Q (23:28)
[2025-09-17] VITALS (10 sets, daily range): BP systolic 144–168; BP diastolic 51–62; PULSE 38–44; RESP 16–20; TEMP 36.6–36.8; O2SAT 95–98
[2025-09-17 04:40] LABS: Hematocrit 23.0 % (42.0-52.0); Hemoglobin 7.1 g/dL (14.0-18.0); Mean Corpuscular HGB Conc 30.9 g/dl (32-36); Mean Corpuscular Hemoglobin 29.0 pg (26-34); Mean Corpuscular Volume 93.9 fl (80-100); Platelet Count Result 172 k/mm3 (150-375); Red Blood Count 2.45 M/mm3 (4.6-6.20); White Blood Count 5.2 K/mm3 (4.5-10.0)
[2025-09-17 05:16] LABS: Albumin Level 3.0 g/dL (3.5-5.1); Anion Gap 10 mmol/L (4-12); Blood Urea Nitrogen 120 mg/dL (9-20); Calcium 8.8 mg/dL (8.4-10.2); Carbon Dioxide 20 mmol/L (22-30); Chloride 106 mmol/L (98-107); Estimated CRCL calculation 7 ml/min; Estimated Glomerular Filt Rate 5; Glucose 157 mg/dL (65-110); Potassium 4.6 mmol/L (3.4-5.0); Sodium 136 mmol/L (137-145)
[2025-09-17 05:41] LABS: Hepatitis B Core IgM Result Negative (Negative)
[2025-09-17] MEDS: ASPIRIN 81 MG CHEWABLE TABLET PO (07:54)
[2025-09-17] MEDS: TAMSULOSIN HCL 0.4 MG CAPSULE PO (07:59)
[2025-09-17] MEDS: BUMETANIDE INJ 1 MG/4 ML VIAL 2 MG IV PUSH (07:59)
[2025-09-17] MEDS: FINASTERIDE 5 MG TABLET PO (08:00)
[2025-09-17] MEDS: IRON SUCROSE COMPLEX 200 MG in SODIUM CHLORIDE 0.9% IV 100 ML 220 MG IVPB (08:01)
--- NOTE | 2025-09-17 08:13 | PC.NURSE ---
patient alert and oriented times four. patient stated he is going home and he wants the leiva catheter out now. patient educated on the importance of the catheter. Patient still refused. Dr Angulo called and notified. Dr stated he will come and talk to him.
--- NOTE | 2025-09-17 10:19 | P.PNNP_ITS ---
Progress Note: A&P Assessment and Plan (1) Stage 5 chronic kidney disease: Code(s): N18.5 - Chronic kidney disease, stage 5 Status: Chronic Assessment and Plan: * known advanced disease at baseline * baseline creatinine running ~ 8.5 - 9.5mg/dL for the last year * BUNs have been running ~ 120 - 140mg/dL in that same time frame * thought to be secondary to diabetic nephropathy * associated with proteinuria, hyperkalemia, anemia, and hyperphosphotemia * on Veltassa and renvela for control of K+ and Phos * Aranesp ordered for anemia (but unclear if getting/taking) * follows with Dr. Elia Torres for ongoing CKD management * has been quite resistant to dialysis initiation due to his travel schedule/work (works in [place]) * patient still refuses to start dialysis. * Not much more to offer from the renal standpoint. He will be seeing Dr. Torres after discharge * Okay for discharge from the renal standpoint (2) Azotemia: Code(s): R79.89 - Other specified abnormal findings of blood chemistry Status: Chronic Assessment and Plan: * baseline blood urea nitrogen readings running ~ 120 - 140mg/dL in the last year * No uremic symptoms * presumably due to progressive decline in kidney function * however, necessity of diuretic therapy likely playing a role * furthermore, cannot discount possible GI blood loss given his anemia (3) Lower extremity edema: Code(s): R60.0 - Localized edema Status: Acute Assessment and Plan: * likely a manifestation of advanced CKD in association with proteinuria * initiated on IV diuretics * We can switch this to p.o. (4) Atrial fibrillation with slow ventricular response: Code(s): I48.91 - Unspecified atrial fibrillation Status: Chronic Assessment and Plan: * as noted by admission EKG * holding carvedilo and avoiding AVN blocking drugs * follow telemetry * not on anticoagulation at this time * Echo Shows an EF of 40-45, and amazingly a normal pericardium. * Cardiology following (5) Bradycardia: Code(s): R00.1 - Bradycardia, unspecified Status: Acute Assessment and Plan: * also noted on admission * Potassium is fine * see #4 * Cardiology following (6) Anemia: Code(s): D64.9 - Anemia, unspecified Status: Chronic Assessment and Plan: * due to advanced CKD * follow trend of H/H * He is on Epogen * T sat only 18. B12 and folate are okay. Getting Venofer. (7) Hypertension: Code(s): I10 - Essential (primary) hypertension Status: Chronic Assessment and Plan: * systolic between 130 and 160. * resumed home medications * on amlodipine 5 and hydralazine 10 three times a day. Pulse rate in the 40s. (8) Diabetes: Qualifiers: Diabetes mellitus type: type 2 Diabetes mellitus senior care insulin use: with terminal operator use Diabetes mellitus complication status: with kidney complications Diabetes mellitus complication detail: with chronic kidney disease Chronic kidney disease stage: stage 5 (GFR < 15), not on chronic dialysis Qualified Code(s): E11.22 - Type 2 diabetes mellitus with diabetic chronic kidney disease; N18.5 - Chronic kidney disease, stage 5; Z79.4 - terminal gauger supervisor (current) use of insulin Code(s): E11.9 - Type 2 diabetes mellitus without complications Status: Acute Assessment and Plan: * follow accu-cheks * glycemic control per hospitalist Subjective Date/time seen: 09/17/25 10:19 Interval history: He the patient feels okay today. 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 Exam Narrative: General: WD/WN male in NAD Heart: bradycardia normal S1 and S2; no cardiac rub Lungs: clear bilaterally Abdomen: soft, nontender, nondistended, positive bowel sounds Extremities: 1+ bilateral edema Skin: warm and dry no rash Objective Data Vital Signs Vital Signs: Vital Signs - 24 hr 09/16/25 11:57 09/16/25 12:00 09/16/25 12:00 Temperature 98.3 F Pulse Rate 39 L 46 L Respiratory Rate 24 H Blood Pressure 154/54 H Pulse Oximetry 94 Oxygen Delivery Room Air 09/16/25 14:00 09/16/25 16:00 09/16/25 16:00 Temperature 97.6 F Pulse Rate 38 L 38 L Respiratory Rate 16 Blood Pressure 136/58 L Pulse Oximetry 100 Oxygen Delivery Room Air 09/16/25 16:00 09/16/25 18:00 09/16/25 19:43 Temperature 97.9 F Pulse Rate 39 L 38 L 40 L Respiratory Rate 20 Blood Pressure 152/52 H Pulse Oximetry 99 Oxygen Delivery 09/16/25 20:00 09/16/25 20:00 09/16/25 22:00 Temperature Pulse Rate 39 L 38 L Respiratory Rate Blood Pressure Pulse Oximetry Oxygen Delivery Room Air 09/17/25 00:00 09/17/25 00:00 09/17/25 00:00 Temperature 97.9 F Pulse Rate 39 L 38 L Respiratory Rate 20 Blood Pressure 144/52 H Pulse Oximetry 95 Oxygen Delivery Room Air 09/17/25 02:04 09/17/25 04:00 09/17/25 04:00 Temperature Pulse Rate 38 L 41 L Respiratory Rate Blood Pressure Pulse Oximetry Oxygen Delivery Room Air 09/17/25 04:48 09/17/25 06:11 09/17/25 07:39 Temperature 98.1 F 98.3 F Pulse Rate 39 L 40 L 40 L Respiratory Rate 18 16 Blood Pressure 149/51 H 168/62 H Pulse Oximetry 97 98 Oxygen Delivery 09/17/25 08:00 09/17/25 08:00 09/17/25 10:00 Temperature Pulse Rate 41 L 44 L Respiratory Rate Blood Pressure Pulse Oximetry Oxygen Delivery Room Air Intake/Output Intake/Output: Intake & Output 09/14/25 09/15/25 09/16/25 09/17/25 23:59 23:59 23:59 23:59 Intake Total 2220 1690 1480 1040 Output Total 1400 1650 1600 600 Balance 820 40 -120 440 Meds/Results Medications: Active Medications Generic Name Dose Route Start Last Admin Trade Name Indioq PRN Reason Stop Dose Admin Acetaminophen 650 mg 09/13/25 10:03 Acetaminophen 325 Mg Tablet PO Q4H PRN Mild Pain (1-3) or Fever Amlodipine Besylate 5 mg 09/14/25 09:00 09/17/25 07:58 Amlodipine Besylate 5 Mg Tablet PO 5 mg DAILY SHELDON Administration Aspirin 81 mg 09/14/25 08:00 09/17/25 07:54 Aspirin 81 Mg Chewable Tablet PO 81 mg DAILY@0800 SHELDON Administration Bumetanide 2 mg 09/15/25 09:00 09/17/25 07:59 Bumetanide Inj 1 Mg/4 Ml Vial IV PUSH 2 mg BID SHELDON Administration Calcitriol 0.25 mcg 09/14/25 09:00 09/17/25 07:59 Calcitriol 0.25 Mcg Capsule PO 0.25 mcg DAILY SHELDON Administration Dextrose 12.5 gm 09/14/25 20:55 Dextrose 50% 25 Gm/50 Ml Syringe IV PUSH PRN PRN Hypoglycemia Protocol Epoetin Amilcar-epbx 10,000 units 09/15/25 09:00 09/15/25 08:57 Epoetin Amilcar-Epbx 10,000 Units/Ml Vial SUB-Q 10,000 units TUTHSA@09 SHELDON Administration Finasteride 5 mg 09/14/25 09:00 09/17/25 08:00 Finasteride 5 Mg Tablet PO 5 mg DAILY SHELDON Administration Glucagon 1 mg 09/14/25 20:55 Glucagon For Inj 1 Mg Vial IM PRN PRN Hypoglycemia Protocol Glucose 15 gm 09/14/25 20:55 Glucose Oral Gel 15 Gm Of Glucse In 37.5 Gm Tube PO PRN PRN Hypoglycemia Protocol Heparin Sodium (Porcine) 5,000 units 09/13/25 22:00 09/17/25 05:43 Heparin Sodium 5,000 Units/Ml Vial SUB-Q 5,000 units Q8HR SHELDON Administration Hydralazine HCl 10 mg 09/16/25 11:10 09/17/25 05:44 Hydralazine 10 Mg Tablet PO 10 mg Q8HR SHELDON Administration Dextrose 1,000 mls @ 100 mls/hr 09/14/25 20:55 Dextrose 5% 1,000 Ml IVPB PRN PRN Hypoglycemia Protocol Iron Sucrose 200 mg/ Sodium 110 mls @ 220 mls/hr 09/16/25 09:00 09/17/25 08:01 Chloride IVPB 09/20/25 09:29 220 mls/hr QAM SHELDON Administration Insulin Aspart 3 - 6 units 09/15/25 08:00 09/17/25 07:54 Insulin Aspart (*Bkc) 100 Units/Ml SUB-Q Not Given TIDWM [facility] Protocol Insulin Glargine 7 units 09/15/25 21:00 09/16/25 23:28 Insulin Glargine (*Bkc) 100 Units/Ml SUB-Q 7 units HS SHELDON Administration Tamsulosin HCl 0.4 mg 09/13/25 14:10 09/17/25 07:59 Tamsulosin Hcl 0.4 Mg Capsule PO 0.4 mg DAILY SHELDON Administration Radiology Results: ITS Impressions Chest X-Ray 09/13/25 09:02 IMPRESSION: 1. Small left pleural effusion. 2. Borderline heart size. Renal Ultrasound 09/14/25 08:30 IMPRESSION: 1. Bilateral diffuse increased renal cortical echogenicity consistent with medical renal disease. No hydronephrosis. 2. Small amount of ascites in the left and right upper quadrant. 3. Mild diffuse bladder wall thickening, likely related to chronic outlet obstruction from the enlarged prostate. Labs Labs: Laboratory Results - last 24 hr 09/15/25 09/16/25 09/16/25 03:48 11:10 15:51 WBC RBC Hgb Hct MCV MCH MCHC RDW Plt Count MPV Sodium Potassium Chloride Carbon Dioxide Anion Gap BUN 118 H* Creatinine Estim Creat Clear Calc Estimated GFR Glucose POC Capillary Glucose 120 H 188 H Calcium Phosphorus Albumin Hep B Core Total Ab Hep B Core IgM Ab 09/16/25 09/17/25 09/17/25 21:05 04:11 04:12 WBC 5.2 RBC 2.45 L Hgb 7.1 L Hct 23.0 L MCV 93.9 MCH 29.0 MCHC 30.9 L RDW 14.9 H Plt Count 172 MPV 11.7 H Sodium 136 L Potassium 4.6 Chloride 106 Carbon Dioxide 20 L Anion Gap 10 BUN 120 H* Creatinine 10.56 H Estim Creat Clear Calc 7 Estimated GFR 5 L Glucose 157 H POC Capillary Glucose 274 H Calcium 8.8 Phosphorus 8.4 H Albumin 3.0 L Hep B Core Total Ab Cancelled Hep B Core IgM Ab Negative 09/17/25 07:16 WBC RBC Hgb Hct MCV MCH MCHC RDW Plt Count MPV Sodium Potassium Chloride Carbon Dioxide Anion Gap BUN Creatinine Estim Creat Clear Calc Estimated GFR Glucose POC Capillary Glucose 128 H Calcium Phosphorus Albumin Hep B Core Total Ab Hep B Core IgM Ab
--- NOTE | 2025-09-17 10:52 | P.PNUR_ITS ---
Progress Note: A&P Assessment and Plan (1) Urinary retention: Code(s): R33.9 - Retention of urine, unspecified Status: Acute Assessment and Plan: - In the setting of self-discontinuation of tamsulosin/finasteride; resumed use now - Ideally, would maintain Weaver catheter for urinary diversion to optimize renal function until creatinine is back to baseline. At that time may attempt void trial with recommendation of Weaver catheter replacement in the setting of PVR >250 ml. - Of note pt requesting Weaver catheter be removed immediately without void trial and suggesting he will be leaving AMA. Lengthy and thorough discussion was had with pt detailing the risks of catheter removal without confirmed bladder emptying. These include but are not limited to pain, infection, stone formation and ANTONIA on CKD which, considering his renal function, may carry singifcant morbitity or mortality. Pt voices his understanding of the above risks. Weaver catheter to be removed if patient elects to leave AMA. Subjective Subjective Date/Time Seen: 09/17/25 10:52 Interval history: Pt resting comfortably in bed today. Pt agitated and requesting to leave AMA with Weaver catheter removed. Catheter with clear, yellow urine in bag. Objective Data Vital Signs Vital Signs: Vital Signs - 24 hr 09/16/25 11:57 09/16/25 12:00 09/16/25 12:00 Temperature 36.8 C Pulse Rate 39 L 46 L Respiratory Rate 24 H Blood Pressure 154/54 H Pulse Oximetry 94 Oxygen Delivery Room Air 09/16/25 14:00 09/16/25 16:00 09/16/25 16:00 Temperature 36.4 C Pulse Rate 38 L 38 L Respiratory Rate 16 Blood Pressure 136/58 L Pulse Oximetry 100 Oxygen Delivery Room Air 09/16/25 16:00 09/16/25 18:00 09/16/25 19:43 Temperature 36.6 C Pulse Rate 39 L 38 L 40 L Respiratory Rate 20 Blood Pressure 152/52 H Pulse Oximetry 99 Oxygen Delivery 09/16/25 20:00 09/16/25 20:00 09/16/25 22:00 Temperature Pulse Rate 39 L 38 L Respiratory Rate Blood Pressure Pulse Oximetry Oxygen Delivery Room Air 09/17/25 00:00 09/17/25 00:00 09/17/25 00:00 Temperature 36.6 C Pulse Rate 39 L 38 L Respiratory Rate 20 Blood Pressure 144/52 H Pulse Oximetry 95 Oxygen Delivery Room Air 09/17/25 02:04 09/17/25 04:00 09/17/25 04:00 Temperature Pulse Rate 38 L 41 L Respiratory Rate Blood Pressure Pulse Oximetry Oxygen Delivery Room Air 09/17/25 04:48 09/17/25 06:11 09/17/25 07:39 Temperature 36.7 C 36.8 C Pulse Rate 39 L 40 L 40 L Respiratory Rate 18 16 Blood Pressure 149/51 H 168/62 H Pulse Oximetry 97 98 Oxygen Delivery 09/17/25 08:00 09/17/25 08:00 09/17/25 10:00 Temperature Pulse Rate 41 L 44 L Respiratory Rate Blood Pressure Pulse Oximetry Oxygen Delivery Room Air Intake/Output Intake/Output: Intake & Output 09/14/25 09/15/25 09/16/25 09/17/25 23:59 23:59 23:59 23:59 Intake Total 2220 1690 1480 1150 Output Total 1400 1650 1600 600 Balance 820 40 -120 550 Meds/Results Medications: Active Medications Generic Name Dose Route Start Last Admin Trade Name Freq PRN Reason Stop Dose Admin Acetaminophen 650 mg 09/13/25 10:03 Acetaminophen 325 Mg Tablet PO Q4H PRN Mild Pain (1-3) or Fever Amlodipine Besylate 5 mg 09/14/25 09:00 09/17/25 07:58 Amlodipine Besylate 5 Mg Tablet PO 5 mg DAILY [facility] Administration Aspirin 81 mg 09/14/25 08:00 09/17/25 07:54 Aspirin 81 Mg Chewable Tablet PO 81 mg DAILY@0800 [facility] Administration Bumetanide 2 mg 09/18/25 09:00 Bumetanide 1 Mg Tablet PO DAILY [facility] Calcitriol 0.25 mcg 09/14/25 09:00 09/17/25 07:59 Calcitriol 0.25 Mcg Capsule PO 0.25 mcg DAILY [facility] Administration Dextrose 12.5 gm 09/14/25 20:55 Dextrose 50% 25 Gm/50 Ml Syringe IV PUSH PRN PRN Hypoglycemia Protocol Epoetin Amilcar-epbx 10,000 units 09/15/25 09:00 09/15/25 08:57 Epoetin Amilcar-Epbx 10,000 Units/Ml Vial SUB-Q 10,000 units TUTHSA@09 [facility] Administration Finasteride 5 mg 09/14/25 09:00 09/17/25 08:00 Finasteride 5 Mg Tablet PO 5 mg DAILY [facility] Administration Glucagon 1 mg 09/14/25 20:55 Glucagon For Inj 1 Mg Vial IM PRN PRN Hypoglycemia Protocol Glucose 15 gm 09/14/25 20:55 Glucose Oral Gel 15 Gm Of Glucse In 37.5 Gm Tube PO PRN PRN Hypoglycemia Protocol Heparin Sodium (Porcine) 5,000 units 09/13/25 22:00 09/17/25 05:43 Heparin Sodium 5,000 Units/Ml Vial SUB-Q 5,000 units Q8HR [facility] Administration Hydralazine HCl 10 mg 09/16/25 11:10 09/17/25 05:44 Hydralazine 10 Mg Tablet PO 10 mg Q8HR [facility] Administration Dextrose 1,000 mls @ 100 mls/hr 09/14/25 20:55 Dextrose 5% 1,000 Ml IVPB PRN PRN Hypoglycemia Protocol Iron Sucrose 200 mg/ Sodium 110 mls @ 220 mls/hr 09/16/25 09:00 09/17/25 10:23 Chloride IVPB 09/20/25 09:29 Infused QAM [facility] Infusion Insulin Aspart 3 - 6 units 09/15/25 08:00 09/17/25 07:54 Insulin Aspart (*Bkc) 100 Units/Ml SUB-Q Not Given TIDWM [facility] Protocol Insulin Glargine 7 units 09/15/25 21:00 09/16/25 23:28 Insulin Glargine (*Bkc) 100 Units/Ml SUB-Q 7 units HS [facility] Administration Tamsulosin HCl 0.4 mg 09/13/25 14:10 09/17/25 07:59 Tamsulosin Hcl 0.4 Mg Capsule PO 0.4 mg DAILY [facility] Administration Radiology Results: ITS Impressions Chest X-Ray 09/13/25 09:02 IMPRESSION: 1. Small left pleural effusion. 2. Borderline heart size. Renal Ultrasound 09/14/25 08:30 IMPRESSION: 1. Bilateral diffuse increased renal cortical echogenicity consistent with medical renal disease. No hydronephrosis. 2. Small amount of ascites in the left and right upper quadrant. 3. Mild diffuse bladder wall thickening, likely related to chronic outlet obstruction from the enlarged prostate. Labs Labs: Laboratory Results - last 24 hr 09/15/25 09/16/25 09/16/25 03:48 11:10 15:51 WBC RBC Hgb Hct MCV MCH MCHC RDW Plt Count MPV Sodium Potassium Chloride Carbon Dioxide Anion Gap BUN 118 H* Creatinine Estim Creat Clear Calc Estimated GFR Glucose POC Capillary Glucose 120 H 188 H Calcium Phosphorus Albumin Hep B Core Total Ab Hep B Core IgM Ab 09/16/25 09/17/25 09/17/25 21:05 04:11 04:12 WBC 5.2 RBC 2.45 L Hgb 7.1 L Hct 23.0 L MCV 93.9 MCH 29.0 MCHC 30.9 L RDW 14.9 H Plt Count 172 MPV 11.7 H Sodium 136 L Potassium 4.6 Chloride 106 Carbon Dioxide 20 L Anion Gap 10 BUN 120 H* Creatinine 10.56 H Estim Creat Clear Calc 7 Estimated GFR 5 L Glucose 157 H POC Capillary Glucose 274 H Calcium 8.8 Phosphorus 8.4 H Albumin 3.0 L Hep B Core Total Ab Cancelled Hep B Core IgM Ab Negative 09/17/25 07:16 WBC RBC Hgb Hct MCV MCH MCHC RDW Plt Count MPV Sodium Potassium Chloride Carbon Dioxide Anion Gap BUN Creatinine Estim Creat Clear Calc Estimated GFR Glucose POC Capillary Glucose 128 H Calcium Phosphorus Albumin Hep B Core Total Ab Hep B Core IgM Ab
--- NOTE | 2025-09-17 12:08 | P.DS_ITS ---
DS: Admitting Diagnosis Discharge Date 09/17/25 Admitting Diagnosis Lower extremitiy edema DS: Discharge Diagnosis Discharge Diagnosis (1) Kidney failure: Qualifiers: Acute renal failure type: unspecified Chronic kidney disease stage: stage 5 (GFR < 15), not on chronic dialysis Renal failure chronicity: acute on chronic Qualified Code(s): N17.9 - Acute kidney failure, unspecified; N18.5 - Chronic kidney disease, stage 5 Code(s): N19 - Unspecified kidney failure Status: Acute (2) Urinary retention: Code(s): R33.9 - Retention of urine, unspecified Status: Acute (3) Elevated troponin: Code(s): R79.89 - Other specified abnormal findings of blood chemistry Status: Acute (4) Lower extremity edema: Code(s): R60.0 - Localized edema Status: Acute (5) Atrial fibrillation with slow ventricular response: Code(s): I48.91 - Unspecified atrial fibrillation Status: Chronic (6) Bradycardia: Code(s): R00.1 - Bradycardia, unspecified Status: Acute (7) Diabetes: Qualifiers: Diabetes mellitus type: type 2 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 insulin 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: with middle or intermediate school principal use Diabetes mellitus complication status: with kidney complications Diabetes mellitus complication detail: with chronic kidney disease Chronic kidney disease stage: stage 5 (GFR < 15), not on chronic dialysis Qualified Code(s): E11.22 - Type 2 diabetes mellitus with diabetic chronic kidney disease; N18.5 - Chronic kidney disease, stage 5; Z79.4 - terminal clerk (current) use of insulin Code(s): E11.9 - Type 2 diabetes mellitus without complications Status: Acute (8) CHF (congestive heart failure): Qualifiers: Heart failure chronicity: unspecified Heart failure type: unspecified Qualified Code(s): I50.9 - Heart failure, unspecified Code(s): I50.9 - Heart failure, unspecified Status: Chronic (9) Hepatitis B core antibody positive: Code(s): R76.89 - Other specified abnormal immunological findings in serum Status: Acute (10) Aortic stenosis: Code(s): I35.0 - Nonrheumatic aortic (valve) stenosis Status: Acute DS: Summary Hospital Course Reason for hospitalization: 65yo male with DM 2, HTN, CKD, hyperlipidemia presents to the ED on 09/13/2025 with complaints of bilateral lower extremity edema onset 2 days ago. Please see H&P for details. Hospital Course: Patient presents with lower extremity edema onset 2 days ago and found to have acute on chronic kidney failure. Baseline Cr 7-8 range but Cr 10.25 on admission here. Renal ultrasound shows medical renal disease, no hydronephrosis, small amount of ascites and diffuse bladder wall thickening. UA: 2+ protein, 1+ glucose. No concern for infection. Urine retention noted in ED. Patient is supposed to be on tamsulosin and finasteride but has not been taking recently as he has had an unable to obtain it. Several unsuccessful attempts to catheterize patient in ED. Patient was eventually able to void. Urology consulted and coude catheter was able to be placed. We resumed tamsulosin and finasteride. Nephrology consulted. Lasix started then changed to Bumex with good UOP. Cr stable in the 10 range with BUN >120. lower extremity edema improved. He was still mentating well and no cardiac rub appreciated. Patient was refusing to start dialysis. Also noted to have elevated Troponin to 0.093 before trending down. Patient denies SOB, chest pain, arm pain, jaw pain. 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 Telemetry consistent with junctional rhythm. Cardiology consulted. Patient is not on anticoagulation. Patient refused Eliquis. We stopped his carvedilol with plans to avoid AVN blocking drugs. Echo showing EF 40-45% with moderate-severe aortic stenosis and moderate-severe biatrial dilation with mild MR. Diastolic function is indeterminate. No pacemaker offered since he was asymptomatic with a HR around 40bpm. Elevated troponin likely secondary to renal failure and junctional rhythm. Edema likely related to renal failure but cannot exclude CHF. No empagliflozin, carvedilol, Entresto, spironolactone due to above. Hydralazine added. Consider adding Imdur. Patient has DM with A1c 6.6%. The patient's blood glucose was monitored with AccuCheks covering with sliding scale. Hypoglycemia protocol was available as needed. Home medication: Tresiba, Mounjaro, lispro. Glucose elevated so low dose Lantus started with good glucose control. HepB Core total Ab positive. HepB surface Ag and surface Ab both negative. He admits to having hepatitis as a child but never treated. Probably a resolved infection or false positive. Repeat HepB panel with PCR pending. Patient was adamant on leaving today and threatened to sign out against medical advise if Weaver was not removed and he was discharged. Plan was home with Weaver but we will remove Weaver today since he is insistent on leaving today. Cardiac event monitor recommended at discharge but patient refused this as well. Long discussion with the patient about the risk for recurrent urine retention resulting in ANTONIA and complete renal failure. Explained that he may not be able to be set for dialysis at such short notice as an outpatient and that he is high risk for worsening condition including but not limited to ESRD, infection and . He voices understanding of the risks and still wants Weaver out and to be discharged. He was able to be discharged home on 09/17/25. Status at Discharge Cognitive/behavioral status at discharge: stable Time Spent with Patient Time attestation: Total time spent providing and/or coordinating discharge services: 45 minutes Time spent: Greater than 30 minutes Exam Narrative: AF 98.1 155/57 40 18 98% ra Gen - NARD Chest - CTA bilaterally, nml RR CV - bradycardic. Tele showing junctional rhythm Abd -soft. Nontender. Nondistended. No hepatomegaly - Weaver secured draining clear yellow urine Ext -improved lower extremity edema. Psych - Nml mood and affect. AOx4 Skin - Warm and dry DS: Data Data Completed and Pending Labs on day of discharge: Labs from last 24 hours 09/17/25 09/17/25 09/17/25 07:16 04:12 04:11 WBC RBC Hgb Hct MCV MCH MCHC RDW Plt Count MPV Sodium Potassium Chloride Carbon Dioxide Anion Gap BUN Creatinine Estim Creat Clear Calc Estimated GFR Glucose POC Capillary Glucose 128 H Calcium Phosphorus Albumin Hep B Core Total Ab Pending Hep B Core IgM Ab Negative Hepatitis B DNA, Quant Pending Hep B DNA, Quant log10 Pending 09/17/25 09/16/25 09/16/25 04:11 21:05 15:51 WBC 5.2 RBC 2.45 L Hgb 7.1 L Hct 23.0 L MCV 93.9 MCH 29.0 MCHC 30.9 L RDW 14.9 H Plt Count 172 MPV 11.7 H Sodium 136 L Potassium 4.6 Chloride 106 Carbon Dioxide 20 L Anion Gap 10 BUN 120 H* Creatinine 10.56 H Estim Creat Clear Calc 7 Estimated GFR 5 L Glucose 157 H POC Capillary Glucose 274 H 188 H Calcium 8.8 Phosphorus 8.4 H Albumin 3.0 L Hep B Core Total Ab Cancelled Hep B Core IgM Ab Hepatitis B DNA, Quant Hep B DNA, Quant log10 09/15/25 03:48 WBC RBC Hgb Hct MCV MCH MCHC RDW Plt Count MPV Sodium Potassium Chloride Carbon Dioxide Anion Gap BUN 118 H* Creatinine Estim Creat Clear Calc Estimated GFR Glucose POC Capillary Glucose Calcium Phosphorus Albumin Hep B Core Total Ab Hep B Core IgM Ab Hepatitis B DNA, Quant Hep B DNA, Quant log10 Discharge Plan Discharge Attending physician on discharge: Claus Angulo Consulting providers: Vanessa Cash; Darwin Villafana; Oskar Gama Discharging Clinician: Claus Angulo Anticipated Discharge Date/Time: 09/17/25 12:38 Patient Disposition: Home Activity: as tolerated Diet: diabetic and renal Discharge Instructions: Please check glucose before meals and before bed. Record and bring into your doctor for review. Check heart rate and blood pressure 1 to 2 times a day. Record and bring into your doctor for review. Call your doctor if your blood pressure is greater than 180/110. Take precautions to avoid falls. Rise slowly from a lying or sitting position. Pause before standing or walking. Check daily morning weights after voiding. Call your doctor if you gain more than 3 lb in 2 days or 5 lb in 1 week. Contact your doctor or call 911 and come to the Emergency Room if you have difficulty urinating, lightheadedness with standing, chest pain, fevers or other worrisome symptoms. Avoid NSAIDs (ibuprofen, naproxen, Aleve). Tylenol is safe to take. Follow-up with your primary care provider in 1-2 weeks. Please call for appointment. Follow-up with your Urologist as soon as possible. Follow-up with your Staff Accountant as soon as possible. Follow-up with your Farmer Vegetable as soon as possible. Thank you for using [facility] for your health care needs. Patient Instructions: Antibiotic Form Patient Language: Korean Stand Alone Forms: General Discharge Information Follow-up/Referrals: PHYSICIAN NOT ON STAFF,NONSTAFF [Primary Care Provider] - Call for Appointment Discharge Medications: New hydralazine 10 mg Tablet 10 mg PO Q8HR Qty: 90 0RF bumetanide 1 mg Tablet 2 mg PO DAILY Qty: 60 0RF finasteride [Proscar] 5 mg Tablet 5 mg PO DAILY Qty: 30 0RF tamsulosin 0.4 mg Capsule 0.4 mg PO DAILY Qty: 30 0RF Continued amlodipine 5 mg tablet 5 mg PO DAILY insulin lispro [Admelog SoloStar U-100 Insulin] 100 unit/mL insulin pen 1 sliding scale dose subcut USEASDIRECTD Patient Comments: ABOVE 130- 3 UNITS, 130-200 5 UNITS PER PT calcitriol 0.25 mcg capsule 0.25 mcg PO DAILY sevelamer carbonate 800 mg tablet 800 mg PO TIDWM Changed insulin degludec [Tresiba FlexTouch U-100] 100 unit/mL (3 mL) insulin pen 7 unit SUBCUT HS Qty: 15 0RF Held sodium bicarbonate 650 mg tablet 1,300 mg PO BID Hold Instructions: HOLD - discuss with your doctor Bernardo 5 mg/0.5 mL pen injector 5 mg SUBCUT .BI WEEKLY Hold Instructions: HOLD - discuss with your doctor Discontinued torsemide 20 mg tablet 100 mg PO DAILY carvedilol 3.125 mg tablet 3.125 mg PO Q12H tamsulosin 0.4 mg capsule 0.4 mg PO Q24H finasteride 5 mg tablet 5 mg PO DAILY Date of admission: 09/13/25 10:05 Primary Care Provider: PHYSICIAN NOT ON STAFF,NONSTAFF Admitting Provider: Mele Alexander Attending physician on admission: Mele Alexander Condition: Guarded Prognosis Hospitalist MIPS Heart Failure (Exclusion) Patient has history of Heart Transplant or Left Ventricular Assistive Device?: No IF YES, STOP HERE Heart Failure (Qualifier) Patient has current or prior documentation of LVEF less than or equal to 40%, or mod/servere depressed LVSF?: Yes IF NO, STOP HERE If Yes, Heart Failure (Qualifier) Patient was prescribed or already taking an Angiotensin-Converting Enzyme (ROBERTA) Inhibitor, or Antiotensin Receptor Aniceto (ARB): No Patient was prescribed or already taking bisoprolol, carvedilol, or sustained release metoprolol succinate: No If Medications not prescribed/taking Reason patient not prescribed/taking ROBERTA or ARB: Medical reasons: allergy, intolerance, contraindication or other Reason patient not prescribed/taking bisoprolol, carvedilol, or sustained realease metoprolol succinate: Medical reasons: allergy, intolerance, contraindication or other
--- NOTE | 2025-09-17 13:03 | PC.NURSE ---
leiva removed, bladder infused with 200 ml NS prior to removal, patient immediately voided 200 ml. Bladder scan showed residual of 80 ml. no signs of distress. Patient voided a second time of 10ml.
[2025-09-18 06:07] LABS: Hep B Core Ab, Total Positive (Negative)
[2025-09-18 13:09] LABS: Albumin, U 46.1 % (.); Alpha-1-Globulin, U 7.1 % (.); Alpha-2-Globulin, U 12.5 % (.); Beta Globulin, U 20.3 % (.); Gamma Globulin, U 14.0 % (.)
--- NOTE | 2025-09-19 09:51 | PC.NURSE ---
HB Virus DNa- HbV dna not detected. HB Core TOtal- positive. Info left for Dr. Angulo to review.
== END 2025-09-17 13:57 | disposition home or self-care (01) | DRG 683 ==
LOC: ANHED 10:33 → ANHIMU 10:47
PROVIDERS: Internal Medicine Nephrology; Nurse Practitioner Adult Health; Admitting Provider Internal Medicine; Emergency Provider Emergency Medicine; Visit Provider Internal Medicine
DX: N17.9 Acute kidney failure, unspecified (principal); I48.20 Chronic atrial fibrillation, unspecified; E11.22 Type 2 diabetes mellitus with diabetic chronic kidney disease; N18.5 Chronic kidney disease, stage 5; I50.9 Heart failure, unspecified; R33.9 Retention of urine, unspecified; R00.1 Bradycardia, unspecified; I35.0 Nonrheumatic aortic (valve) stenosis; N40.0 Benign prostatic hyperplasia without lower urinary tract symptoms; D63.1 Anemia in chronic kidney disease; E78.5 Hyperlipidemia, unspecified; Z79.4 Long term (current) use of insulin
CPT/HCPCS: 36415; 71046; 76770; 80048; 80053; 80069; 81001; 82306; 82570; 82607; 82728; 82746; 82948; 83036; 83540; 83550; 83735; 83880; 83970; 84156; 84166; 84300; 84484; 84540; 85025; 85027; 85610; 85730; 86704; 86705; 86706; 87340; 87517; 93005; 93306; 96374; 99285; A9270; J1644; J1756; J1815; J1938; J1939; Q5105